=== PATIENT | male | born 1955 | race Caucasian/White ===

== ENCOUNTER 2022-01-05 15:33 | Outpatient (CLI) | payer MEDICARE, BC, SELFPAY ==
[2022-01-05 11:29] LABS: Chloride* 95 mmol/L (96-114)
[2022-01-05 11:30] LABS: Albumin* 4.1 g/dL (3.3-5.0); Potassium* 4.2 mmol/L (3.6-5.1)
[2022-01-05 11:32] LABS: Carbon Dioxide* 30 mmol/L (20-32); Cholesterol* 158 mg/dL (90-199); Creatinine* 0.9 mg/dL (0.5-1.5); Estimated Glomerular Filt Rate 93 ml/min
[2022-01-05 11:33] LABS: Alanine Aminotransferase* 33 U/L (4-50); Alkaline Phosphatase* 66 U/L (40-150); Aspartate Amino Transferase* 35 U/L (12-35); Bilirubin Total* 0.9 mg/dL (0.1-1.5); Blood Urea Nitrogen* 21 mg/dL (7-30); Calcium* 9.3 mg/dL (8.4-10.6); Glucose* 180 mg/dL (60-115); Total Protein* 7.1 g/dL (6.0-8.3); Triglycerides* 121 mg/dL (40-149)
[2022-01-05 11:34] LABS: HDL Cholesterol* 48 mg/dL (>=40); LDL Cholesterol Calculated 86 mg/dL (<100)
[2022-01-05 11:58] LABS: Microalbumin Creatinine Ratio 0 mg/g (0-30); Microalbumin Urine < 1 mg/dL
[2022-01-05 12:08] LABS: Sodium* 135 mmol/L (135-149)
== END 2022-01-05 15:34 | disposition home or self-care (01) ==
PROVIDERS: PCP Internal Medicine; Visit Provider Internal Medicine
DX: E11.9 Type 2 diabetes mellitus without complications (principal); E66.9 Obesity, unspecified; I10 Essential (primary) hypertension; Z13.6 Encounter for screening for cardiovascular disorders; Z12.5 Encounter for screening for malignant neoplasm of prostate
CPT/HCPCS: 80053; 80061; 82043; 82570; 84153

== ENCOUNTER 2022-03-05 21:38 | Emergency (ER) | payer MEDICARE, BC, SELFPAY ==
[2022-03-05] VITALS (12 sets, daily range): BP systolic 135–166; BP diastolic 68–85; PULSE 74–81; TEMP 36.7; O2SAT 90–98; BMI 45.6
--- NOTE | 2022-03-05 22:07 | CRLHL7_ITS ---
For Patients: As a result of the Century Cures Act, medical imaging exams and procedure reports are released immediately into your electronic medical record. You may view this report before your referring provider. If you have questions, please contact your health care provider. INDICATION: Right lower quadrant pain. COMPARISON: None available TECHNIQUE: CT examination of the abdomen and pelvis was performed without contrast enhancement using 3 mm thick axial sections from the lung bases through the pubic symphysis. Oral contrast was not administered. Please note that all CT scans at this facility use dose modulation, iterative reconstruction, and/or weight-based dosing when appropriate to reduce radiation dose to as low as reasonably achievable. FINDINGS: In the abdomen, the unenhanced liver, spleen, pancreas, and adrenals are normal in appearance. There is mild right hydronephrosis produced by a 5 millimeter proximal ureteral calculus located at the superior L4 level. There is moderate perinephric soft tissue stranding representing pyelo interstitial backflow. There is no sign of any additional renal or ureteral calculi on either side. There is no sign of left hydronephrosis or hydroureter. Several parapelvic cysts are seen in both kidneys. The gallbladder is normal in appearance. The abdominal aorta is normal in caliber with no sign of dilatation. There is no sign of retroperitoneal mass or adenopathy. The stomach, loops of small bowel, and colon in the abdomen are normal in appearance. There is a small fat containing periumbilical hernia. In the pelvis, the appendix is normal in appearance with no sign of inflammatory process. The loops of small bowel, colon, and rectum in the pelvis are normal in appearance. The prostate is mildly enlarged and is otherwise normal in appearance. The urinary bladder is normal in appearance. There is no sign of pelvic or inguinal mass or adenopathy. There are moderate left and small right fat containing inguinal hernias. There is no sign of free air or free fluid in the abdomen or pelvis. The lung bases are clear. There is mild scoliosis of the lumbar spine convex towards the right. There is minimal anterior subluxation of L5 on S1 related to moderate right greater than left facet arthropathy. The L5-S1 disc space is normal in height. There is severe L3-4 disc degenerative disease. IMPRESSION: CT of the abdomen shows mild right hydronephrosis previous by a 5 millimeter proximal ureteral calculus located at the superior L4 level. No sign of any additional renal or ureteral calculi on either side. Parapelvic cysts seen in both kidneys. CT of the pelvis shows a small fat containing periumbilical hernia and moderate left and mild right fat containing inguinal hernias. Mild enlargement of the prostate. Please note that all CT scans at this facility use dose modulation, iterative reconstruction, and/or weight-based dosing when appropriate to reduce radiation dose to as low as reasonably achievable. Dictated by Jefferson Light MD @ 03/05/2022 11:43:28 PM (Electronically Signed)
--- NOTE | 2022-03-05 22:09 | ED_ITS ---
HPI - General Adult General Time Seen by Provider: 22:10 <Shree Ruelas MD - Last Filed: 03/07/22 08:50> Date Seen: 03/05/22 <Shree Ruelas MD - Last Filed: 03/07/22 08:50> Chief complaint: Abdominal Pain <Shree Ruelas MD - Last Filed: 03/07/22 08:50> Stated complaint: LOWER RIGHT ABDOMINAL PAIN <Shree Ruelas MD - Last Filed: 03/07/22 08:50> Time Seen by Provider: 03/05/22 21:45 <Shree Ruelas MD - Last Filed: 03/07/22 08:50> Source: patient <Shree Ruelas MD - Last Filed: 03/07/22 08:50> Mode of arrival: ambulatory <Shree Ruelas MD - Last Filed: 03/07/22 08:50> Limitations: no limitations <Shree Ruelas MD - Last Filed: 03/07/22 08:50> History of Present Illness HPI narrative: Patient is a 58 year white male with elevated BMI who has had several hour history of right lower quadrant pain it is worse with hitting bumps on the road on the way to the hospital. He still has appendix. 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 His medications are reviewed. No recent chest pain, shortness of breath, COVID symptoms. <Shree Ruelas MD - Last Filed: 03/07/22 08:50> Related Data Home medications: Home Medications Medication Instructions Recorded Confirmed amlodipine 10 mg tablet 10 mg PO DAILY 01/07/22 01/12/22 aspirin 81 mg tablet,delayed 81 mg PO QDAY 01/07/22 01/12/22 release atenolol 100 mg tablet 100 mg PO DAILY 01/07/22 01/12/22 atorvastatin 10 mg tablet 10 mg PO .Bedtime 01/07/22 01/12/22 lisinopril 20 1 tab PO DAILY 01/07/22 01/12/22 mg-hydrochlorothiazide 25 mg tablet Previous Rx's Medication Instructions Recorded pantoprazole 20 mg tablet,delayed 20 mg PO QDAY GERD #60 tabs 07/26/22 release (Protonix) metformin 500 mg tablet 500 mg PO BIDWMEAL Diabetes #90 01/15/22 tabs hydrocodone 7.5 mg-acetaminophen 1 tab PO Q6-8H PRN pain #20 tabs 03/06/22 325 mg tablet ketorolac 10 mg tablet 10 mg PO TID PRN pain 5 days #15 03/06/22 tabs tamsulosin 0.4 mg capsule (Flomax) 0.4 mg PO DAILY #30 caps 03/06/22 <Shree Ruelas MD - Last Filed: 03/07/22 08:50> Allergies/adverse reactions: Allergies Allergy/AdvReac Type Severity Reaction Status Date / Time No Known Allergies Allergy Verified 01/12/22 08:25 <Shree Ruelas MD - Last Filed: 03/07/22 08:50> Review of Systems Status of ROS: Reports: 10 or more systems reviewed and unremarkable except as noted in History and below <Shree Ruelas MD - Last Filed: 03/07/22 08:50> [facility] Medical History: Medical History Encounter for screening for severe acute respiratory syndrome coronavirus 2 (SARS-CoV-2) infection GERD (gastroesophageal reflux disease) <Shree Ruelas MD - Last Filed: 03/07/22 08:50> Surgical History: Surgical History Status post right knee replacement (07/15/21) <Shree Ruelas MD - Last Filed: 03/07/22 08:50> Social History: Social History Smoking Status: Current every day smoker Do you use any of these nicotine containing products: None Second hand tobacco smoke exposure: No How often do you have a drink containing alcohol: never How often do you have six or more drinks on one occasion: Never AUDIT-C Alcohol total score: 0 Non-prescribed substance use: denies use <Shree Ruelas MD - Last Filed: 03/07/22 08:50> Exam Narrative: Exam Narrative: Objective: Patient is alert or x3 HEENT is unremarkable Neck is supple Pulses regular Lungs are clear Heart rhythm regular Abdomen obese benign but some mild right lower quadrant tenderness to palpation mild voluntary guarding is unremarkable for hernia or testicular swelling Extremities are no edema Neurologic nonfocal Periphery is well perfused Skin warm and dry <Shree Ruelas MD - Last Filed: 03/07/22 08:50> Const: Vital Signs, click to edit/add: Vital Signs - 24 hr 03/05/22 21:44 03/05/22 21:44 03/05/22 21:45 Temperature 98.1 F Pulse Rate 78 80 Pulse Rate [Left P ulse Oximeter] 76 Blood Pressure 166/85 H Blood Pressure [Ri ght Upper Arm] 166/85 H Pulse Oximetry 96 92 97 Oxygen Delivery Me thod Room Air Oxygen Flow Rate 03/05/22 21:46 03/05/22 22:02 03/05/22 22:48 Temperature Pulse Rate 79 Pulse Rate [Left P ulse Oximeter] Blood Pressure 139/71 Blood Pressure [Ri ght Upper Arm] Pulse Oximetry 95 95 Oxygen Delivery Me thod Oxygen Flow Rate 03/05/22 22:35 03/05/22 22:40 03/05/22 22:45 Temperature Pulse Rate 78 81 Pulse Rate [Left P ulse Oximeter] Blood Pressure 152/81 H Blood Pressure [Ri ght Upper Arm] Pulse Oximetry 94 95 Oxygen Delivery Me thod Oxygen Flow Rate 03/05/22 23:33 03/05/22 23:55 03/05/22 23:35 Temperature Pulse Rate 75 74 Pulse Rate [Left P ulse Oximeter] Blood Pressure 135/68 Blood Pressure [Ri ght Upper Arm] Pulse Oximetry 98 95 90 Oxygen Delivery Me thod Nasal Cannula Oxygen Flow Rate 2 03/05/22 23:45 03/06/22 00:00 03/06/22 00:02 Temperature Pulse Rate 75 75 78 Pulse Rate [Left P ulse Oximeter] Blood Pressure 128/63 Blood Pressure [Ri ght Upper Arm] Pulse Oximetry 93 95 92 Oxygen Delivery Me thod Nasal Cannula Nasal Cannula Oxygen Flow Rate 2 2 03/06/22 00:03 03/06/22 00:15 Temperature Pulse Rate 78 75 Pulse Rate [Left P ulse Oximeter] Blood Pressure Blood Pressure [Ri ght Upper Arm] Pulse Oximetry 93 95 Oxygen Delivery Me thod Oxygen Flow Rate <Shree Ruelas MD - Last Filed: 03/07/22 08:50> Vital Signs, click to edit/add: Vital Signs - 24 hr 03/05/22 21:44 03/05/22 21:44 03/05/22 21:45 Temperature 98.1 F Pulse Rate 78 80 Pulse Rate [Left P ulse Oximeter] 76 Blood Pressure 166/85 H Blood Pressure [Ri ght Upper Arm] 166/85 H Pulse Oximetry 96 92 97 Oxygen Delivery Me thod Room Air Oxygen Flow Rate 03/05/22 21:46 03/05/22 22:02 03/05/22 22:48 Temperature Pulse Rate 79 Pulse Rate [Left P ulse Oximeter] Blood Pressure 139/71 Blood Pressure [Ri ght Upper Arm] Pulse Oximetry 95 95 Oxygen Delivery Me thod Oxygen Flow Rate 03/05/22 22:35 03/05/22 22:40 03/05/22 22:45 Temperature Pulse Rate 78 81 Pulse Rate [Left P ulse Oximeter] Blood Pressure 152/81 H Blood Pressure [Ri ght Upper Arm] Pulse Oximetry 94 95 Oxygen Delivery Me thod Oxygen Flow Rate 03/05/22 23:33 03/05/22 23:55 03/05/22 23:35 Temperature Pulse Rate 75 74 Pulse Rate [Left P ulse Oximeter] Blood Pressure 135/68 Blood Pressure [Ri ght Upper Arm] Pulse Oximetry 98 95 90 Oxygen Delivery Me thod Nasal Cannula Oxygen Flow Rate 2 03/05/22 23:45 03/06/22 00:00 03/06/22 00:02 Temperature Pulse Rate 75 75 78 Pulse Rate [Left P ulse Oximeter] Blood Pressure 128/63 Blood Pressure [Ri ght Upper Arm] Pulse Oximetry 93 95 92 Oxygen Delivery Me thod Nasal Cannula Nasal Cannula Oxygen Flow Rate 2 2 03/06/22 00:03 03/06/22 00:15 Temperature Pulse Rate 78 75 Pulse Rate [Left P ulse Oximeter] Blood Pressure Blood Pressure [Ri ght Upper Arm] Pulse Oximetry 93 95 Oxygen Delivery Me thod Oxygen Flow Rate <Rosy Weir MD - Last Filed: 03/06/22 01:58> Course Vital Signs Vital signs: Initial Vital Signs Temperature 98.1 F 03/05/22 21:44 Temperature Source Temporal Artery Scan 03/05/22 21:44 Pulse Rate 78 03/05/22 21:44 Blood Pressure 166/85 H 03/05/22 21:44 Blood Pressure Mean 112 03/05/22 21:44 Pulse Oximetry 96 03/05/22 21:44 Oxygen Delivery Method 03/05/22 21:44 Vital Signs Temperature 98.1 F 03/05/22 21:44 Pulse Rate 78 03/05/22 21:44 Blood Pressure 166/85 H 03/05/22 21:44 Pulse Oximetry 96 03/05/22 21:44 Oxygen Delivery Method 03/05/22 21:44 Temperature 98.1 F 03/05/22 21:44 Pulse Rate 73 03/06/22 02:04 Blood Pressure 132/70 03/06/22 02:04 Pulse Oximetry 93 03/06/22 02:04 Oxygen Delivery Method 03/06/22 00:02 Oxygen Flow Rate 2 03/06/22 00:02 <Shree Ruelas MD - Last Filed: 03/07/22 08:50> Initial Vital Signs Temperature 98.1 F 03/05/22 21:44 Temperature Source Temporal Artery Scan 03/05/22 21:44 Pulse Rate 78 03/05/22 21:44 Blood Pressure 166/85 H 03/05/22 21:44 Blood Pressure Mean 112 03/05/22 21:44 Pulse Oximetry 96 03/05/22 21:44 Oxygen Delivery Method 03/05/22 21:44 Vital Signs Temperature 98.1 F 03/05/22 21:44 Pulse Rate 78 03/05/22 21:44 Blood Pressure 166/85 H 03/05/22 21:44 Pulse Oximetry 96 03/05/22 21:44 Oxygen Delivery Method 03/05/22 21:44 Temperature 98.1 F 03/05/22 21:44 Pulse Rate 73 03/06/22 02:04 Blood Pressure 132/70 03/06/22 02:04 Pulse Oximetry 93 03/06/22 02:04 Oxygen Delivery Method 03/06/22 00:02 Oxygen Flow Rate 2 03/06/22 00:02 <Rosy Weir MD - Last Filed: 03/06/22 01:58> Medical Decision Making MDM Narrative Medical decision making narrative: Patient is a 58 year white male with [id number] diabetes with significant elevated BMI with right-sided lower abdominal pain. Rule out intestinal infection, colitis, appendicitis. Given the patient's diabetic status will try and do the CT without contrast. Check labs, IV fluid, IV morphine. Surgical consult as needed Addendum: The patient's CT scan shows a 5 mm proximal ureteral calculus on the right with mild right hydronephrosis. The patient got a dose of morphine as well as fluid, he still had discomfort and was given Dilaudid 1 mg IV. Continue to give IV fluid as well as pain medicine as needed, if his pain resolves or improves he could possibly be discharged home on oral narcotic medicine, if he continues to have pain and discomfort may need continued IV treatment as well as consultation with Urology in a.m.. Because of non availability of bed space at any tertiary care hospital I would prefer to transfer this patient for Urology assessment given the size of the stone, but given that his un impossible presently we will watch in the ER as planned above. <Shree Ruelas MD - Last Filed: 03/07/22 08:50> Patient is a 58 year white male with [id number] diabetes with significant elevated BMI with right-sided lower abdominal pain. Rule out intestinal infection, colitis, appendicitis. Given the patient's diabetic status will try and do the CT without contrast. Check labs, IV fluid, IV morphine. Surgical consult as needed Addendum: The patient's CT scan shows a 5 mm proximal ureteral calculus on the right with mild right hydronephrosis. The patient got a dose of morphine as well as fluid, he still had discomfort and was given Dilaudid 1 mg IV. Continue to give IV fluid as well as pain medicine as needed, if his pain resolves or improves he could possibly be discharged home on oral narcotic medicine, if he continues to have pain and discomfort may need continued IV treatment as well as consultation with Urology in a.m.. Because of non availability of bed space at any tertiary care hospital I would prefer to transfer this patient for Urology assessment given the size of the stone, but given that his un impossible presently we will watch in the ER as planned above. Update 1:15 a.m., Dr. Weir. Patient had some mild initial transient hypoxia with his IV pain medication. He reported marked improvement in pain control shortly after receiving those medications. He is allowed to rest in the emergency department and we continue to observe. His pain did start to creep back. He is given oral Toradol and hydrocodone with improvement again in his pain. We discussed the plan of care, he is comfortable following up during the daylight hours to check on the status of the Urology referral and he does understand the plan of care. We reviewed the alarm symptoms for infection, signs of worsening and typical time course for kidney stones to past which can be several weeks. He verbalizes understanding and agreement. We discussed use of Tylenol and Toradol as needed for first-line therapy, beginning Flomax to help the stone pass possibly. A limited supply of hydrocodone will be given as well for severe pain and we discussed the indications for this. 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 Limited supply of oxycodone given through [facility] for the night until cub opens in the morning <Rosy Weir MD - Last Filed: 03/06/22 01:58> Lab Data Labs: Lab Results 03/05/22 03/05/22 03/05/22 Range/Units 21:50 22:12 22:20 WBC 12.19 H (4.50-11.00) K/uL RBC 4.40 (4.30-5.90) m/uL Hgb 13.0 L (13.5-17.5) gm/dL Hct 38.1 (37.0-53.0) % MCV 87 (80-100) fL MCH 30 (26-34) pg MCHC 34 (32-36) gm/dL RDW Coeff of [place] 12.1 (11.5-15.5) % Plt Count 241 (140-440) K/uL Neut % (Auto) 79.0 H (42.0-72.0) % Lymph % (Auto) 11.2 L (20-44) % [place] % (Auto) 8.7 (0.0-11.0) % Eos % (Auto) 0.2 (0.0-7.0) % Baso % (Auto) 0.2 (0.0-3.0) % Neut # (Auto) 9.60 H (1.7-7.0) K/uL Lymph # (Auto) 1.40 (0.90-2.90) K/uL [place] # (Auto) 1.10 H (0.00-0.90) K/UL Eos # (Auto) 0.00 (0.00-0.50) K/uL Baso # (Auto) 0.00 (0.00-0.30) K/uL Abs Immat Gran (auto) 0.08 (0.00-0.30) K/uL Sodium (135-149) mmol/L Potassium (3.6-5.1) mmol/L Chloride (96-114) mmol/L Carbon Dioxide (20-32) mmol/L BUN (7-30) mg/dL Creatinine (0.5-1.5) mg/dL Estimated Creat Clear Estimated GFR ml/min Glucose (60-115) mg/dL Calcium (8.4-10.6) mg/dL Total Bilirubin (0.1-1.5) mg/dL Direct Bilirubin (0.0-0.5) mg/dL AST (12-35) U/L ALT (4-50) U/L Alkaline Phosphatase (40-150) U/L C-Reactive Protein (0.5-1.0) mg/dL Total Protein (6.0-8.3) g/dL Albumin (3.3-5.0) g/dL Amylase (18-89) U/L Urine Color Yellow (Yellow) Urine Appearance Clear (Clear) Urine pH 6.0 (5.0-8.5) Ur Specific [place] 1.025 (1.000-1.030) Urine Protein Negative (Negative) Urine Glucose (UA) Trace A (Negative) Urine Ketones 1+ A (Negative) Urine Blood 2+ A (Negative) Urine Nitrite Negative (Negative) Urine Bilirubin Negative (Negative) Urine Urobilinogen 1.0 (0.2-1.0) Ur Leukocyte Esterase Negative (Negative) Urine RBC 0-2 (0-2) Urine WBC 0-2 (0-5) Ur Squamous Epith Cells None (None-Few) Urine Bacteria None (None) SARS-CoV-2 (PCR) Negative SARS-CoV-2 (Negative) 03/05/22 Range/Units 22:20 WBC (4.50-11.00) K/uL RBC (4.30-5.90) m/uL Hgb (13.5-17.5) gm/dL Hct (37.0-53.0) % MCV (80-100) fL MCH (26-34) pg MCHC (32-36) gm/dL RDW Coeff of [place] (11.5-15.5) % Plt Count (140-440) K/uL Neut % (Auto) (42.0-72.0) % Lymph % (Auto) (20-44) % [place] % (Auto) (0.0-11.0) % Eos % (Auto) (0.0-7.0) % Baso % (Auto) (0.0-3.0) % Neut # (Auto) (1.7-7.0) K/uL Lymph # (Auto) (0.90-2.90) K/uL [place] # (Auto) (0.00-0.90) K/UL Eos # (Auto) (0.00-0.50) K/uL Baso # (Auto) (0.00-0.30) K/uL Abs Immat Gran (auto) (0.00-0.30) K/uL Sodium 133 L (135-149) mmol/L Potassium 4.0 (3.6-5.1) mmol/L Chloride 98 (96-114) mmol/L Carbon Dioxide 25 (20-32) mmol/L BUN 26 (7-30) mg/dL Creatinine 1.5 (0.5-1.5) mg/dL Estimated Creat Clear 45.60 Estimated GFR 50 ml/min Glucose 233 H (60-115) mg/dL Calcium 9.2 (8.4-10.6) mg/dL Total Bilirubin 1.0 (0.1-1.5) mg/dL Direct Bilirubin 0.1 (0.0-0.5) mg/dL AST 28 (12-35) U/L ALT 29 (4-50) U/L Alkaline Phosphatase 66 (40-150) U/L C-Reactive Protein < 0.5 L (0.5-1.0) mg/dL Total Protein 7.0 (6.0-8.3) g/dL Albumin 4.2 (3.3-5.0) g/dL Amylase 48 (18-89) U/L Urine Color (Yellow) Urine Appearance (Clear) Urine pH (5.0-8.5) Ur Specific [place] (1.000-1.030) Urine Protein (Negative) Urine Glucose (UA) (Negative) Urine Ketones (Negative) Urine Blood (Negative) Urine Nitrite (Negative) Urine Bilirubin (Negative) Urine Urobilinogen (0.2-1.0) Ur Leukocyte Esterase (Negative) Urine RBC (0-2) Urine WBC (0-5) Ur Squamous Epith Cells (None-Few) Urine Bacteria (None) SARS-CoV-2 (PCR) (Negative) <Shree Ruelas MD - Last Filed: 03/07/22 08:50> Lab Results 03/05/22 03/05/22 03/05/22 Range/Units 21:50 22:12 22:20 WBC 12.19 H (4.50-11.00) K/uL RBC 4.40 (4.30-5.90) m/uL Hgb 13.0 L (13.5-17.5) gm/dL Hct 38.1 (37.0-53.0) % MCV 87 (80-100) fL MCH 30 (26-34) pg MCHC 34 (32-36) gm/dL RDW Coeff of [place] 12.1 (11.5-15.5) % Plt Count 241 (140-440) K/uL Neut % (Auto) 79.0 H (42.0-72.0) % Lymph % (Auto) 11.2 L (20-44) % [place] % (Auto) 8.7 (0.0-11.0) % Eos % (Auto) 0.2 (0.0-7.0) % Baso % (Auto) 0.2 (0.0-3.0) % Neut # (Auto) 9.60 H (1.7-7.0) K/uL Lymph # (Auto) 1.40 (0.90-2.90) K/uL [place] # (Auto) 1.10 H (0.00-0.90) K/UL Eos # (Auto) 0.00 (0.00-0.50) K/uL Baso # (Auto) 0.00 (0.00-0.30) K/uL Abs Immat Gran (auto) 0.08 (0.00-0.30) K/uL Sodium (135-149) mmol/L Potassium (3.6-5.1) mmol/L Chloride (96-114) mmol/L Carbon Dioxide (20-32) mmol/L BUN (7-30) mg/dL Creatinine (0.5-1.5) mg/dL Estimated Creat Clear Estimated GFR ml/min Glucose (60-115) mg/dL Calcium (8.4-10.6) mg/dL Total Bilirubin (0.1-1.5) mg/dL Direct Bilirubin (0.0-0.5) mg/dL AST (12-35) U/L ALT (4-50) U/L Alkaline Phosphatase (40-150) U/L C-Reactive Protein (0.5-1.0) mg/dL Total Protein (6.0-8.3) g/dL Albumin (3.3-5.0) g/dL Amylase (18-89) U/L Urine Color Yellow (Yellow) Urine Appearance Clear (Clear) Urine pH 6.0 (5.0-8.5) Ur Specific [place] 1.025 (1.000-1.030) Urine Protein Negative (Negative) Urine Glucose (UA) Trace A (Negative) Urine Ketones 1+ A (Negative) Urine Blood 2+ A (Negative) Urine Nitrite Negative (Negative) Urine Bilirubin Negative (Negative) Urine Urobilinogen 1.0 (0.2-1.0) Ur Leukocyte Esterase Negative (Negative) Urine RBC 0-2 (0-2) Urine WBC 0-2 (0-5) Ur Squamous Epith Cells None (None-Few) Urine Bacteria None (None) SARS-CoV-2 (PCR) Negative SARS-CoV-2 (Negative) 03/05/22 Range/Units 22:20 WBC (4.50-11.00) K/uL RBC (4.30-5.90) m/uL Hgb (13.5-17.5) gm/dL Hct (37.0-53.0) % MCV (80-100) fL MCH (26-34) pg MCHC (32-36) gm/dL RDW Coeff of [place] (11.5-15.5) % Plt Count (140-440) K/uL Neut % (Auto) (42.0-72.0) % Lymph % (Auto) (20-44) % [place] % (Auto) (0.0-11.0) % Eos % (Auto) (0.0-7.0) % Baso % (Auto) (0.0-3.0) % Neut # (Auto) (1.7-7.0) K/uL Lymph # (Auto) (0.90-2.90) K/uL [place] # (Auto) (0.00-0.90) K/UL Eos # (Auto) (0.00-0.50) K/uL Baso # (Auto) (0.00-0.30) K/uL Abs Immat Gran (auto) (0.00-0.30) K/uL Sodium 133 L (135-149) mmol/L Potassium 4.0 (3.6-5.1) mmol/L Chloride 98 (96-114) mmol/L Carbon Dioxide 25 (20-32) mmol/L BUN 26 (7-30) mg/dL Creatinine 1.5 (0.5-1.5) mg/dL Estimated Creat Clear 45.60 Estimated GFR 50 ml/min Glucose 233 H (60-115) mg/dL Calcium 9.2 (8.4-10.6) mg/dL Total Bilirubin 1.0 (0.1-1.5) mg/dL Direct Bilirubin 0.1 (0.0-0.5) mg/dL AST 28 (12-35) U/L ALT 29 (4-50) U/L Alkaline Phosphatase 66 (40-150) U/L C-Reactive Protein < 0.5 L (0.5-1.0) mg/dL Total Protein 7.0 (6.0-8.3) g/dL Albumin 4.2 (3.3-5.0) g/dL Amylase 48 (18-89) U/L Urine Color (Yellow) Urine Appearance (Clear) Urine pH (5.0-8.5) Ur Specific [place] (1.000-1.030) Urine Protein (Negative) Urine Glucose (UA) (Negative) Urine Ketones (Negative) Urine Blood (Negative) Urine Nitrite (Negative) Urine Bilirubin (Negative) Urine Urobilinogen (0.2-1.0) Ur Leukocyte Esterase (Negative) Urine RBC (0-2) Urine WBC (0-5) Ur Squamous Epith Cells (None-Few) Urine Bacteria (None) SARS-CoV-2 (PCR) (Negative) <Rosy Weir MD - Last Filed: 03/06/22 01:58> Discharge Plan Discharge Clinical Impression: Right sided abdominal pain, Right kidney stone <Shree Ruelas MD - Last Filed: 03/07/22 08:50> Patient Disposition: Home w/ Parent or Adult <Shree Ruelas MD - Last Filed: 03/07/22 08:50> Condition: Improved <Shree Ruelas MD - Last Filed: 03/07/22 08:50> Additional Instructions: Strain your urine to see if you passed a kidney stone. I have given you several prescriptions. The 1st medication is called tamsulosin, also known as Flomax. He will take this daily to help reduce spasm of the ureter and also to hopefully help dilate things open slightly and allowed the stone to pass more easily. I have given you 2 different medications for pain, the 1st is a medication called ketorolac, also known as Toradol. This may be taken up to 3 times daily and is a nonnarcotic. It is safe to operate machinery while on this medication. You may also take Tylenol in addition to this medication for pain. Drink lots of water. If the pain becomes severe again, I have given a limited prescription for a medicine called hydrocodone. This is a narcotic and you should not operate machinery while on that medication. Try to use that sparingly and discontinue as soon as possible. I have placed a referral to the urologist. Our staff will also call and try to coordinate an appointment once their office opens tomorrow. If you have not heard back from us or them by 1:00 p.m., please call the Emergency Department to double check on the status of this. It may take them a week to get you an appointment, this is not uncommon. If you began having shaking chills, fevers and/or severe weakness, this could be a sign of infection and you would need to seek medical care. You may notice some blood in your urine which would not be surprising. Your kidney stone is 5 mm and located on the right ureter, fairly close to the kidney. We describe them related to your spine and yours is at the L4 level. This means that it does have quite a bit further to go. Kidney stones that are 4 mm or less will often past without help. Once your size will typically past but may need intervention. As we discussed the urologist may consider putting in a stent if you have not passed the stone by your follow-up appointment. They will discuss proper options with you. <Shree Ruelas MD - Last Filed: 03/07/22 08:50> Activity Level: Light activity <Shree Ruelas MD - Last Filed: 03/07/22 08:50> Light activity <Rosy Weir MD - Last Filed: 03/06/22 01:58> Discharge Diet: Regular <Shree Ruelas MD - Last Filed: 03/07/22 08:50> Regular <Rosy Weir MD - Last Filed: 03/06/22 01:58> Prescriptions: New hydrocodone-acetaminophen 7.5-325 mg tablet 1 tab PO Q6-8H PRN (Reason: pain) Qty: 20 0RF ketorolac 10 mg tablet 10 mg PO TID PRN (Reason: pain) 5 Days Qty: 15 0RF Rx Instructions: non-narcotic. Safer kidney stone pain medication tamsulosin [Flomax] 0.4 mg capsule 0.4 mg PO DAILY Qty: 30 1RF Rx Instructions: take daily to help stone pass, may stop when stone passes No Action atorvastatin 10 mg tablet 10 mg PO .Bedtime amlodipine 10 mg tablet 10 mg PO DAILY lisinopril-hydrochlorothiazide 20-25 mg tablet 1 tab PO DAILY atenolol 100 mg tablet 100 mg PO DAILY aspirin 81 mg tablet,delayed release (DR/EC) 81 mg PO QDAY pantoprazole [Protonix] 20 mg tablet,delayed release (DR/EC) 20 mg PO QDAY Qty: 60 1RF metformin 500 mg tablet 500 mg PO BIDWMEAL Qty: 90 3RF Rx Instructions: 1000mg in the am and 500mg in the pm <Shree Ruelas MD - Last Filed: 03/07/22 08:50> Follow Up/Referrals: Casey Cano MD [Referring] - (first available urology- obstructing right proximal (L4 area) 5mm stone, seen ED 03/05) Anders Mirza MD [Primary Care Provider] - <Shree Ruelas MD - Last Filed: 03/07/22 08:50> Stand Alone Forms: MyHealth Info Instructions <Shree Ruelas MD - Last Filed: 03/07/22 08:50>
[2022-03-05 22:18] LABS: Appearance Urine Clear (Clear); Bilirubin Urine Negative (Negative); Blood Urine 2+ (Negative); Color Urine Yellow (Yellow); Glucose Urine Trace (Negative); Ketones Urine 1+ (Negative); Leukocyte Esterase Urine Negative (Negative); Nitrite Urine Negative (Negative); Protein Urine Negative (Negative); Specific Gravity Urine 1.025 (1.000-1.030)
--- OUTSIDE RECORDS SUMMARY | 2022-03-05 22:24 | XMS_ITS | Clinical Summary ---
:1955 Author Organization [email or web address] [place] [address] Care Team Providers Name Role Phone Pcp, No Primary Care Provider Unavailable Allergies No known active allergies Medications Medication Sig Dispensed Refills Start Date End Date Status aspirin 81 mg Take 1 tablet by 1 tablet 0 10/22/2009 Active tabletIndications: Type mouth once daily II or unspecified type with a meal. diabetes mellitus without mention of complication, not stated as uncontrolled cholecalciferol (VITAMIN Take 1 capsule 0 10/15/2010 Active D) 1,000 unit capsule by mouth once daily. amLODIPine (NORVASC) 10 Take 1 tablet by 90 tablet 3 3 Active mg tablet mouth once daily. atenolol (TENORMIN) 100 Take 1 tablet by 90 tablet 3 3 Active mg tablet mouth once daily. lisinopril-hydrochloroth Take 1 tablet by 90 tablet 3 09/16/19 13 Active iazide, 20-25 mg, mouth once (PRINZIDE, ZESTORETIC) daily. 20-25 mg per tablet simvastatin (ZOCOR) 20 Take 1 tablet by 90 tablet 3 09/15/2012 Active mg tablet mouth at bedtime. ergocalciferol (VITAMIN Take 1 capsule 8 capsule 0 09/15/2012 Active D) 50,000 unit capsule by mouth once weekly. one po WEEKLY for 8 weeks blood sugar diagnostic Test once daily, 100 Each 0 09/15/2012 Active (ACCU-CHEK ADVANTAGE and as needed. TEST) strip lancets (ACCU-CHEK Test once daily, 100 Each 0 09/15/2012 Active SOFTCLIX LANCETS) and as needed. metFORMIN (GLUCOPHAGE TAKE 1 TABLET BY 30 tablet 0 07/10/2014 Active XR) 500 mg MOUTH ONCE DAILY Extended-Release WITH EVENING tabletIndications: Type MEAL. II or unspecified type diabetes mellitus without mention of complication, not stated as uncontrolled Active Problems Problem Noted Date Morbid obesity 10/04/2009 Vitamin D deficiency 10/04/2009 HTN (hypertension) Type II or unspecified type diabetes mellitus without mention of complication, not stated as uncontrolled Immunizations Name Administration Dates Next Due HepA-HepB (Twinrix) 09/15/2012 Pneumococcal Poly,23-Valent (Pneumovax) 10/15/2010 Td (Age >=7 Years) 05/31/2005 Tdap 10/15/2010 Family History Medical History Relation Name Comments Heart Disease Father Hyperlipidemia Father Hypertension Father Hypertension Mother Thyroid Disease Mother Cancer-colon Neg. 1 Cancer-prostate Neg. 2 Relation Name Status Comments Father Mother Alive Neg. 1 Neg. 2 Social History Tobacco Use Types Packs/Day Years Used Date Never Smoker Alcohol Use Standard Drinks/Week Comments Yes 0 (1 standard drink = 0.6 oz pure alcoho l) rarely Sex Assigned at Date Recorded Not on file Obstetrics History Last Filed Vital Signs Vital Sign Reading Time Taken Comments Blood Pressure 138/78 09/15/2012 9:17 AM CDT Pulse 69 09/15/2012 9:01 AM CDT Temperature - - Respiratory Rate 18 09/15/2012 8:57 AM CDT Oxygen Saturation 95% 09/15/2012 8:57 AM CDT Inhaled Oxygen Concentration - - Weight 139.3 kg (307 lb) 09/15/2012 8:57 AM CDT Height 176.5 cm (5' 9.5) 09/15/2012 8:57 AM CDT Body Mass Index 44.69 09/15/2012 8:57 AM CDT Plan of Treatment Health Maintenance Due Date Last Done Comments COVID-19 vaccine series (#1) 03/31/1956 Depression screening for age 12+ 1965 BMI (ht and wt on same day) for 09/29/1971 age 18+ Hepatitis C screening for age 0509/29/1971 18-79 Zoster (shingles) series for age 0509/29/2003 50+ (1 of 2) Pneumococcal series for age 65+ (2 10/16/2011 10/15/2010 - PCV) Colonoscopy through age 75 06/08/2017 06/08/2007 Lipids for age 45-75 09/14/2017 09/14/2012, 07/21/2011, 10/14/2010, Additional history exists Tetanus booster 10/15/2020 10/15/2010, 05/31/2005 Influenza for age 65+ 01/29/2022 Tdap Completed 10/15/2010 Results Not on filefrom Last 3 Months Insurance Payer Benefit Plan / Subscriber ID Effective Dates Phone Addre ss Type Group [facility] AD[facility]AGE [id number] 2009-Present [address] [place] [address] Care Teams Insurance Claim Auditor Relationship Specialty Start Date End Date Pcp, No PCP - General 07/10/14 .
[2022-03-05] MEDS: 0.9 % SODIUM CHLORIDE 500 ML 500 ML IV (22:34)
[2022-03-05] MEDS: MORPHINE 4 MG/ML INJ IVP (22:35)
[2022-03-05 22:40] LABS: Basophils Percent Auto 0.2 % (0.0-3.0); Eosinophils Percent Auto 0.2 % (0.0-7.0); Hematocrit 38.1 % (37.0-53.0); Immature Granulocytes Abs Auto 0.08 K/uL (0.00-0.30); Lymphocytes Percent Auto 11.2 % (20-44); Mean Corpuscular HGB Conc 34 gm/dL (32-36); Mean Corpuscular Hemoglobin 30 pg (26-34); Mean Corpuscular Volume 87 fL (80-100); Monocytes Percent Auto 8.7 % (0.0-11.0); Platelet Count* 241 K/uL (140-440); RDW Coefficient of Variation % 12.1 % (11.5-15.5); White Blood Count* 12.19 K/uL (4.50-11.00)
[2022-03-05 22:44] LABS: Slide Review Reflex No
[2022-03-05 22:44] LABS: RBC Urine 0-2 (0-2); WBC Urine 0-2 (0-5)
[2022-03-05] MEDS: ONDANSETRON 2 MG/ML inj 4 MG IVP (22:47)
[2022-03-05 22:56] LABS: SARS PCR* Negative SARS-CoV-2 (Negative)
[2022-03-05 22:57] LABS: Chloride* 98 mmol/L (96-114)
[2022-03-05 22:58] LABS: Albumin* 4.2 g/dL (3.3-5.0); Sodium* 133 mmol/L (135-149)
[2022-03-05 23:00] LABS: Amylase* 48 U/L (18-89)
[2022-03-05 23:01] LABS: Alkaline Phosphatase* 66 U/L (40-150); Aspartate Amino Transferase* 28 U/L (12-35); Bilirubin Direct* 0.1 mg/dL (0.0-0.5); Blood Urea Nitrogen* 26 mg/dL (7-30); Carbon Dioxide* 25 mmol/L (20-32); Creatinine* 1.5 mg/dL (0.5-1.5); Estimated Glomerular Filt Rate 50 ml/min; Glucose* 233 mg/dL (60-115)
[2022-03-05 23:02] LABS: Alanine Aminotransferase* 29 U/L (4-50); Calcium* 9.2 mg/dL (8.4-10.6)
[2022-03-05 23:12] LABS: C Reactive Protein* < 0.5 mg/dL (0.5-1.0)
[2022-03-05] MEDS: HYDROmorphone 0.5 mg/0.5 ml inj 1 MG IVP (23:37)
--- NOTE | 2022-03-05 23:55 | ED.NURSE ---
Pt O2 dropping to 87% on RA after Dilaudid given. Pt rousable and O2 recovered to mid-90's%. Pt drowsy, O2 continues to dip into the 80's% when pt falls asleep. Placed pt on 2L O2 NC. notified.
[2022-03-06] VITALS (15 sets, daily range): BP systolic 128–139; BP diastolic 63–82; PULSE 71–78; O2SAT 92–97
[2022-03-06] MEDS: KETOROLAC 10 MG TABLET PO (01:34)
[2022-03-06] MEDS: HYDROCODONE-ACETAMIN 5-325 MG 1 TAB PO (01:34)
== END 2022-03-06 02:16 | disposition home or self-care (01) ==
PROVIDERS: Family Medicine; Emergency Provider Family Medicine; PCP Internal Medicine
DX: N20.0 Calculus of kidney (principal)
CPT/HCPCS: 36415; 74176; 80048; 80076; 81001; 82150; 85025; 86140; 87086; 87635; 94761; 96374; 96375; 99284; 99285; A9270; J1170; J2270; J2405; J7120

== ENCOUNTER 2022-07-14 06:40 | Day surgery (SDC) | payer MEDICARE, BC, SELFPAY ==
[2022-07-14] VITALS (38 sets, daily range): BP systolic 66–140; BP diastolic 43–81; PULSE 52–103; RESP 16–20; TEMP 36.1–36.9; O2SAT 91–99; BMI 31.4
[2022-07-14] MEDS: CELECOXIB 200 MG CAPSULE PO (07:01)
[2022-07-14] MEDS: ACETAMINOPHEN 500 MG TABLET 1000 MG PO ×3 (07:01→18:23)
[2022-07-14] MEDS: OXYCODONE (CR) 10 MG TAB.ER.12H PO (07:01)
[2022-07-14] MEDS: fentaNYL 100 MCG/2 ML inj IVP (07:01)
[2022-07-14] MEDS: MIDAZOLAM HCL 1 MG/ML inj IVP (07:01)
[2022-07-14] MEDS: LACTATED RINGERS 1000 ML 1,000 ML 100 ML IV ×2 (07:05→10:39)
--- NOTE | 2022-07-14 08:15 | SUR.PREOP ---
TIME?OUT:?0815 PT/RN/MDA?VERIFICATION?OF?SURGICAL?SITE,?PROCEDURE,?AND?CONSENT OBTAINED?PRIOR?TO?INVASIVE?PROCEDURE. left knee
[2022-07-14] MEDS: CEFAZOLIN 1 GM inj 3 GM IVP (08:46)
[2022-07-14] MEDS: TRANEXAMIC ACID 100 MG/ML INJ 1000 MG IV (08:51)
--- NOTE | 2022-07-14 10:32 | CRLHL7_ITS ---
For Patients: As a result of the Cures Act, medical imaging exams and procedure reports are released immediately into your electronic medical record. You may view this report before your referring provider. If you have questions, please contact your health care provider. Indication: POST OP LEFT TKA Technique: Two views left knee Findings/Impression: Hardware from a left total knee arthroplasty is in satisfactory position. Bone alignment is normal. No sign of acute fracture. Postop changes are within normal limits. Dictated by Channing Douglas MD @ 07/14/2022 11:48:44 AM (Electronically Signed)
--- NOTE | 2022-07-14 10:34 | P.ORPRC_ITS ---
Procedure Note Date of procedure: 07/14/22 Procedure: PREOPERATIVE DIAGNOSIS: Left knee osteoarthritis POSTOPERATIVE DIAGNOSIS: Left knee osteoarthritis NAME OF OPERATION: Left total knee arthroplasty SURGEON: Vick Smallwood MD TAKER OFF HEMP FIBER: FAITH Nelson ANESTHESIA: Spinal ESTIMATED BLOOD LOSS: 0 mL COMPLICATIONS: None SPECIMENS: None DRAINS: None PREOPERATIVE ANTIBIOTICS: Ancef 3 grams IMPLANTS: 1. J&J Attune # 8 posterior stabilized femur 2. # 8 fixed-bearing tibia 3. # 8 posterior stabilized, 7 mm fixed-bearing polyethylene 4. 41 patella INDICATIONS: The patient is a 66-year-old with a longstanding history of severe, unrelenting left knee pain secondary to end-stage (grade IV) left knee osteoarthritis. Despite appropriate nonoperative management, including activity modification, anti-inflammatories, [id number] pain medication, bracing, physical therapy, and injections they continue to have pain and disability. Operative intervention was offered. The risks, benefits and expected outcomes were discussed in detail. These included but were not limited to: Infection, bleeding, injury to blood vessel or nerve, venous thromboembolism. All questions were answered to their satisfaction. Use of an district administrative assistant was necessary throughout the case for patient positioning and safety, soft tissue retraction, and closure. A modifier 22 should be added to this case. The patient's weight of 130 kg with a BMI of 44 made the case more difficult an added 50% of the time typically required to complete this case. PROCEDURE: Spinal anesthesia was administered. The patient was placed supine on the operating table. The district administrative assistant made sure the patient was positioned appropriately. The lower extremity was prepped and draped in the usual sterile fashion. The limb was exsanguinated with the Roberto Carlos bandage. The pneumatic tourniquet was inflated to 300 mmHg. A standard anterior incision was made with the knee in flexion. Subcutaneous dissection was sharply taken through fascial layer #1. Full-thickness medial and lateral flaps were elevated. The district administrative assistant retracted the soft tissues and protected them throughout the case. A standard medial parapatellar approach was made. The patella was everted. The infrapatellar fat pad was preserved. The menisci and cruciate ligaments were sharply d?brided. Marginal osteophytes were d?brided with the rongeur. The drill was used to penetrate the femoral canal. The canal was aspirated and irrigated with pulse lavage. The intramedullary femoral guide was placed for a 5-degree valgus cut, removing 12 mm off the distal femur. The saw was used to make the cut. Whitesides line and the trans epicondylar axis were marked. The femoral sizing guide was pinned onto the distal femur. Three degrees of external rotation nicely parallels the transepicondylar axis. Pins were placed for posterior referencing. The four-in-one cutting guide was pinned onto the distal femur. The anterior, posterior, and chamfer cuts were made. The district administrative assistant protected the collateral ligaments. The box cutting guide was pinned. The box cuts were made. The boxed trial was placed and was an excellent fit. Drill holes for the lugs were made. Attention was then turned to the proximal tibia. The extramedullary tibial guid e was placed for a neutral varus/valgus cut with 5 degrees of posterior slope, removing 2 mm based off the medial tibial surface. The district administrative assistant protected the collateral ligaments and the neurovascular bundle. The saw was used to make the cut. Trial components were placed. The knee was nicely balanced in both flexion and extension. The trial components were removed. The tray was placed in appropriate rotation, parallel to our tibial cutting pins. It was pinned by the district administrative assistant and the drill and the punch were used. The tray was removed. The punch was used again. We placed a bone plug in the femoral canal. Attention was then turned to the patella. [place] patellar thickness was 27.5 mm. The lobster claw resection guide was used with the 9.5 mm donald. The saw was used to make the cut. Drill holes were made by the district administrative assistant. The trial was placed and was an excellent fit. Cancellous surfaces were irrigated with pulse lavage and thoroughly dried by the district administrative assistant. We cemented the tibial component, then the femoral component. We impacted the 7 mm polyethylene onto the tibial tray. The knee was brought into full extension. We then cemented the patellar component. Excessive cement was removed. The cement was allowed to harden. The knee was taken through a range of motion and was found to be nicely balanced in both flexion and extension. The patella tracks centrally. The district administrative assistant did a three minute dilute Betadine solution soak. The district administrative assistant irrigated the wound with 3 liters of normal saline via pulse lavage. The district administrative assistant reapproximated the extensor mechanism with #1 Vicryl in an interrupted [id number]-[id number] fashion. The district administrative assistant then ran the extensor mechanism with a #1 PDO Stratafix. The district administrative assistant closed the subcutaneous tissues with a 3-0 Stratafix and the skin with a running 3-0 Stratafix in a subcuticular fashion. Glue was used to seal the skin. The district administrative assistant placed a dry dressing, HEMAL stocking, and Polar Care. Sponge and needle counts were correct x2. The patient tolerated the procedure well. There were no apparent complications. They were carefully transferred to the hospital bed and taken to the postanesthesia care unit in satisfactory condition. PLAN: The patient will be mobilized with physical therapy. Aspirin will be used for DVT prophylaxis. They will be discharged to home once medically appropriate.
--- NOTE | 2022-07-14 11:21 | W.ANESCHARGE ---
Anesthesia Charges Start Date/Time Anesthesia Start Date: 07/14/22 Anesthesia Start Time: 08:34 Stop Date/Time Anesthesia Stop Date: 07/14/22 Anesthesia Stop Time: 11:19
[2022-07-14] MEDS: PHENYLEPHRINE 100 MCG/ML SYRINGE IVP ×6 (11:22→12:21)
[2022-07-14] MEDS: LACTATED RINGERS 1000 ML 1,000 ML 35 ML IV (11:48)
--- NOTE | 2022-07-14 11:52 | W.ANESCHARGE ---
Anesthesia Charges Start Date/Time Anesthesia Start Date: 07/14/22 Anesthesia Start Time: 08:34 Stop Date/Time Anesthesia Stop Date: 07/14/22 Anesthesia Stop Time: 11:19
--- NOTE | 2022-07-14 11:53 | W.PM.NB ---
Nerve Block Nerve Block Time Seen by Provider: 08:17 Date Seen: 07/14/22 Type of block requested by surgeon for post-operative analgesia: adductor canal Side: left Time out performed: Yes Verification of patient name: Yes Verification of date of : Yes Site marking: site marked Name of person performing procedure: Tre Continuous monitoring Was continuous monitoring of O2 sat, B/P, hall monitor, recorded every 15 minutes?: Yes Procedure Checklist: sterile prep, needles and gloves Ultrasound guided. Images saved: Yes Medications given in 5ml increments after negative aspiration: Ropivicaine %: 0.5 mL: 20 Needle gauge: 20 Decadron (mg): 10 Precedex (mcg): 25 Patient tolerated procedure well: Yes Additional comments: Needle noted adjacent to nerve Block Charges Block Charge (with Pro Fee): Femoral Nerve Use of Ultrasound Machine for Block: Yes- US Guidance/pain block
--- NOTE | 2022-07-14 11:54 | P.NB_ITS ---
Nerve Block Nerve Block Time Seen by Provider: 08:17 Date Seen: 07/14/22 Type of block requested by surgeon for post-operative analgesia: geniculars Side: left Time out performed: Yes Verification of patient name: Yes Verification of date of : Yes Site marking: site marked Name of person performing procedure: Tre Continuous monitoring Was continuous monitoring of O2 sat, B/P, quality assurance monitor, recorded every 15 minutes?: Yes Procedure Checklist: sterile prep, needles and gloves Medications given in 5ml increments after negative aspiration: Ropivicaine %: 0.5 mL: 9 Needle gauge: 25 Patient tolerated procedure well: Yes Block Charges Block Charge (with Pro Fee): Genicular Nerve Block Use of Ultrasound Machine for Block: No
[2022-07-14] MEDS: ePHEDrine sulfate 5 MG/ML inj IVP (12:09)
[2022-07-14] MEDS: LACTATED RINGERS 1000 ML 1,000 ML 75 ML IV (12:58)
[2022-07-14] MEDS: HYDROmorphone 0.5 mg/0.5 ml inj IVP (13:09)
--- NOTE | 2022-07-14 13:13 | P.IMCN_ITS ---
Date of Consult Patient: [facility] Patient Consult date: 07/14/22 Requesting Physician: Orthopedics Primary Care Provider: Anders Mirza MD Consult Narrative Reason for consult: Postoperative management of hypertension and diabetes mellitus type 2 Narrative: Darius Gonzalez is a 66 year old man with known end-stage left gonarthrosis presents for an elective left total knee arthroplasty today. This is undertaken successfully without any apparent immediate complications or ill consequences. Did have postoperative hypotension with systolic blood pressures as low as the 80s mm Hg. Has now received 3 L of normal saline total. Resting supine blood pressure is now 100-110 mmHg. Denies chest heaviness, pressure, tightness, or pain. Denies dyspnea at rest, paroxysmal nocturnal dyspnea, or orthopnea. Denies syncope or near-syncope. Denies nausea or vomiting. Review of Systems Status of ROS: Reports: 10 or more systems reviewed and unremarkable except as noted in History and below Narrative: Preoperative blood sugars have not been well managed. Hemoglobin A1c on 07/08/2022 was 8.9. Does not monitor his blood sugars ordinarily. Denies polyuria, polydipsia, polyphagia. Denies confusion, diaphoresis, weakness or somnolence. No recent illnesses. No recent injury. No recent travel. Notes chronic left shoulder discomfort. No focal motor neurologic deficits. No nighttime sweats or weight loss or weight gain. [facility] Medical History Encounter for screening for severe acute respiratory syndrome coronavirus 2 (SARS-CoV-2) infection GERD (gastroesophageal reflux disease) Hypertension Pre-op exam Renal calculi (03/05/22) Type 2 diabetes mellitus Surgical History Status post right knee replacement (07/15/21) Family History Father CHF (congestive heart failure) High blood pressure Mother High blood pressure Social History Highest level of school completed/degree received: Associate degree: occupational, technical, vocational program Smoking Status: Never smoker Do you use any of these nicotine containing products: None Second hand tobacco smoke exposure: No How often do you have a drink containing alcohol: never How often do you have six or more drinks on one occasion: Never AUDIT-C Alcohol total score: 0 Non-prescribed substance use: denies use Caffeine: Yes (very little) service: No Meds Home Medications and Allergies Home Medications Medication Instructions Recorded Confirmed Type aspirin 81 mg tablet,delayed 81 mg PO DAILY 01/07/22 07/14/22 History release atenolol 100 mg tablet 100 mg PO DAILY 01/07/22 07/14/22 History atorvastatin 10 mg tablet 10 mg PO HS 01/07/22 07/14/22 History lisinopril 20 1 tab PO DAILY 01/07/22 07/14/22 History mg-hydrochlorothiazide 25 mg tablet acetaminophen 500 mg tablet 500 - 1,000 mg PO Q6H PRN 07/08/22 07/14/22 History metformin 500 mg tablet 500 - 1,000 mg PO BIDWMEAL Diabetes 07/14/22 07/14/22 History pantoprazole 20 mg tablet,delayed 20 mg PO DAILY GERD 07/14/22 07/14/22 History release (Protonix) Allergies Allergy/AdvReac Type Severity Reaction Status Date / Time No Known Allergies Allergy Verified 07/14/22 07:13 Exam Narrative: Exam Narrative: Laying in hospital bed with head of bed elevated about 20?. Appears comfortable and in no acute distress. Alert, oriented to self, place, time, situation. Friendly, articulate, cooperative. Vision and hearing are grossly normal. Moist buccal mucosa. No skin tenting. Lungs are clear to auscultation. Heart tones with regular rhythm, normal S1-S2, without murmur, gallop, or rub. Abdomen obese with active bowel sounds, soft, nontender. Can move toes on the affected left side. No focal motor neurologic deficits Const: Vital Signs, click to edit/add: Vital Signs - 24 hr 07/14/22 07:51 07/14/22 08:20 07/14/22 11:17 Temperature 98.4 F 98.1 F Pulse Rate 92 89 66 Respiratory Rate 18 18 16 Blood Pressure 140/77 H 122/60 66/43 L Pulse Oximetry 93 93 96 Oxygen Delivery Me thod Room Air Room Air Non Rebreather Mas k Oxygen Flow Rate 10 07/14/22 11:38 07/14/22 11:43 07/14/22 11:55 Temperature Pulse Rate 60 60 55 L Respiratory Rate 16 16 16 Blood Pressure 88/52 L 77/47 L 94/56 L Pulse Oximetry 95 97 98 Oxygen Delivery Me thod Non Rebreather Mas k Non Rebreather Mas k Non Rebreather Mas k Oxygen Flow Rate 10 10 5 07/14/22 12:05 07/14/22 12:10 07/14/22 12:25 Temperature Pulse Rate 64 58 L 68 Respiratory Rate 16 16 16 Blood Pressure 82/71 L 107/60 99/61 Pulse Oximetry 99 99 96 Oxygen Delivery Me thod Non Rebreather Mas k Non Rebreather Mas k Nasal Cannula Oxygen Flow Rate 5 5 2 07/14/22 12:30 07/14/22 11:19 07/14/22 11:22 Temperature 97.2 F L Pulse Rate 69 52 L 61 Respiratory Rate 16 16 16 Blood Pressure 106/57 L 84/52 L 75/43 L Pulse Oximetry 96 96 96 Oxygen Delivery Me thod Nasal Cannula Non Rebreather Mas k Non Rebreather Mas k Oxygen Flow Rate 2 10 10 07/14/22 11:25 07/14/22 11:30 07/14/22 11:35 Temperature Pulse Rate 55 L 60 57 L Respiratory Rate 16 16 16 Blood Pressure 87/50 L 81/48 L 90/55 L Pulse Oximetry 96 96 97 Oxygen Delivery Me thod Non Rebreather Mas k Non Rebreather Mas k Non Rebreather Mas k Oxygen Flow Rate 10 10 10 07/14/22 11:40 07/14/22 11:45 07/14/22 11:50 Temperature Pulse Rate 60 55 L 56 L Respiratory Rate 16 16 16 Blood Pressure 82/48 L 89/47 L 78/49 L Pulse Oximetry 95 97 98 Oxygen Delivery Me thod Non Rebreather Mas k Non Rebreather Mas k Non Rebreather Mas k Oxygen Flow Rate 10 10 5 07/14/22 11:59 07/14/22 12:15 07/14/22 12:18 Temperature Pulse Rate 60 67 67 Respiratory Rate 16 16 16 Blood Pressure 84/54 L 92/68 84/66 L Pulse Oximetry 97 99 98 Oxygen Delivery Me thod Non Rebreather Mas k Nasal Cannula Nasal Cannula Oxygen Flow Rate 5 2 2 07/14/22 12:20 07/14/22 12:28 07/14/22 12:34 Temperature Pulse Rate 68 69 69 Respiratory Rate 16 16 16 Blood Pressure 104/57 L 109/66 107/58 L Pulse Oximetry 96 96 95 Oxygen Delivery Me thod Nasal Cannula Nasal Cannula Nasal Cannula Oxygen Flow Rate 2 2 2 Assessment and Plan Assessment and plan (1) Osteoarthritis of left knee: Status: Chronic (2) Status post left knee replacement: Status: Acute (3) Type 2 diabetes mellitus: Status: Acute (4) Hypertension: Status: Acute (5) Obesity: Status: Acute (6) GERD (gastroesophageal reflux disease): Status: Acute (7) Postoperative hypotension: Status: Acute (8) Anemia: Status: Acute Plan 1. Reviewed with patient and . Answered their questions. 2. Hold his antihypertensive medications for now 3. Continue with his metformin for now. 4. Sliding scale aspart insulin for blood sugar management 5. Continue with statin treatment as already on. 6. Agree with perioperative antibiotic prophylaxis as instituted 7. Agree with postoperative venous thromboembolism prophylaxis as instituted. 8. He designates his as his power of assistant county attorney for health should that be required. 9. He requests full resuscitation in the event of cardiopulmonary demise, although he makes a very clear that he does not want to be kept alive in a vegetative state. 10. Patient agreeable to above stated plans and recommendations.
[2022-07-14] MEDS: CEFAZOLIN 3 GM in 0.9 % SODIUM CHLORIDE 100 ml 100 ML IVPB ×2 (14:51→22:35)
[2022-07-14] MEDS: OXYCODONE 5 MG TABLET PO (15:02)
--- NOTE | 2022-07-14 16:45 | PC.NURSE ---
Pt arrived in hospital bed from PACU @ 1143 pm s/p LTKA with Dr. Smallwood. Pt needed BP support with fluids and meds in PACU prior to arrival. Please see initial assessment from PACU and frequent VS per post op routine. Pt received IV Dilaudid 0.5 mg IV with scheduled dose of tylenol 1000mg PO for pain 5 out of 10. Later pt up to recliner per Sukumar in PT, IV ANCEF 3 grams given and 5 mg of oxycodone provided for pain 3-4 out of 10. Report to Mirna Fried RN for evening shift.
[2022-07-14] MEDS: METFORMIN 500 MG TABLET PO (17:42)
--- NOTE | 2022-07-14 18:53 | PC.NURSE ---
Shift Note: Pt doing well post op. A/o and able to verbalize needs. VS WNL and LS COA. Moves well to BR with assist x1 with GB and walker. Adequate urine output and great PO intake. IS to 2500. Surgical dressing C,D,&I with cryocuff in place.
[2022-07-14] MEDS: ATORVASTATIN 10 MG TABLET PO (21:13)
[2022-07-14] MEDS: SENNOSIDES 1 TAB TABLET 2 TAB PO (21:13)
[2022-07-14] MEDS: ASPIRIN 81 MG TABLET EC PO (21:13)
[2022-07-14] MEDS: SODIUM CHLORIDE 0.9 % (FLUSH) 10 ML SYRINGE 5 ML IVF (22:37)
[2022-07-15] MEDS: ACETAMINOPHEN 500 MG TABLET 1000 MG PO ×2 (02:25→09:02)
[2022-07-15 03:00] VITALS: BP 119/67; PULSE 79; RESP 18; TEMP 36.7; O2SAT 92
--- NOTE | 2022-07-15 05:09 | PC.NURSE ---
Shift note: Pt is able to ambulate with A1, walker and GB to and from BR. Pain has randall minimal and no post op complication noted. Drying appears dry ad clean. No Bm at this time but confirmed of passing gas. Tolerating regular diet very well. CMS intact.
[2022-07-15] MEDS: OMEPRAZOLE 20 MG CAPSULE DR PO (06:32)
[2022-07-15] MEDS: CEFAZOLIN 3 GM in 0.9 % SODIUM CHLORIDE 100 ml 100 ML IVPB (06:33)
[2022-07-15] MEDS: SODIUM CHLORIDE 0.9 % (FLUSH) 10 ML SYRINGE 5 ML IVF (06:34)
[2022-07-15 06:59] LABS: Hematocrit 35.6 % (37.0-53.0); Hemoglobin* 12.6 gm/dL (13.5-17.5); Immature Granulocytes Pct Auto 0.2 %; Mean Corpuscular HGB Conc 35 gm/dL (32-36); Mean Corpuscular Hemoglobin 29 pg (26-34); Mean Corpuscular Volume 83 fL (80-100); Monocytes Percent Auto 7.3 % (0.0-11.0); Neutrophils Percent Auto 85.5 % (42.0-72.0); Platelet Count* 265 K/uL (140-440); RDW Coefficient of Variation % 12.4 % (11.5-15.5); Red Blood Count 4.28 m/uL (4.30-5.90); White Blood Count* 12.55 K/uL (4.50-11.00)
[2022-07-15 07:04] LABS: Slide Review Reflex No
[2022-07-15 07:17] LABS: INR 1.12 (0.91-1.10); Prothrombin Time 15.1 Seconds
[2022-07-15 07:19] LABS: Potassium* 3.7 mmol/L (3.6-5.1); Sodium* 132 mmol/L (135-149)
[2022-07-15 07:22] LABS: Blood Urea Nitrogen* 19 mg/dL (7-30); Creatinine* 0.8 mg/dL (0.5-1.5); Estimated Glomerular Filt Rate 96 ml/min
[2022-07-15 07:35] VITALS: BP 128/66; PULSE 77; RESP 18; TEMP 36.4; O2SAT 94
[2022-07-15 07:40] VITALS: O2SAT 94
--- NOTE | 2022-07-15 08:59 | PM.ORPN ---
Subjective Subjective Time Seen by Provider: 07:30 Date Seen: 07/15/22 Principal diagnosis: Status post left knee replacement Interval history: Darius is comfortable this morning. He plans on discharging to home today. He states he has oxycodone at home and does not need any upon discharge today. Ortho Exam Narrative Exam Narrative: Alert and oriented x3. Patient is in no acute distress. Converses without labored breathing. Hearing is grossly intact. Ambulates with a walker. Examination of the left knee shows the dressing is intact. Mild effusion. Mild soft tissue edema about the knee. No sign of infection. Bilateral calves are soft and nontender. Good quad function. CMS intact left lower extremity. Const Vital Signs, click to edit/add: Vital Signs - 24 hr 07/14/22 11:17 07/14/22 11:38 07/14/22 11:43 Temperature 98.1 F Pulse Rate 66 60 60 Pulse Rate [Left Apical] Pulse Rate [Right Pulse Oximeter] Respiratory Rate 16 16 16 Blood Pressure 66/43 L 88/52 L 77/47 L Blood Pressure [Right Arm] Pulse Oximetry 96 95 97 Oxygen Delivery Method Non Rebreather Mask Non Rebreather Mask Non Rebreather Mask Oxygen Flow Rate 10 10 10 07/14/22 11:55 07/14/22 12:05 07/14/22 12:10 Temperature Pulse Rate 55 L 64 58 L Pulse Rate [Left Apical] Pulse Rate [Right Pulse Oximeter] Respiratory Rate 16 16 16 Blood Pressure 94/56 L 82/71 L 107/60 Blood Pressure [Right Arm] Pulse Oximetry 98 99 99 Oxygen Delivery Method Non Rebreather Mask Non Rebreather Mask Non Rebreather Mask Oxygen Flow Rate 5 5 5 07/14/22 12:25 07/14/22 12:30 07/14/22 11:19 Temperature 97.2 F L Pulse Rate 68 69 52 L Pulse Rate [Left Apical] Pulse Rate [Right Pulse Oximeter] Respiratory Rate 16 16 16 Blood Pressure 99/61 106/57 L 84/52 L Blood Pressure [Right Arm] Pulse Oximetry 96 96 96 Oxygen Delivery Method Nasal Cannula Nasal Cannula Non Rebreather Mask Oxygen Flow Rate 2 2 10 07/14/22 11:22 07/14/22 11:25 07/14/22 11:30 Temperature Pulse Rate 61 55 L 60 Pulse Rate [Left Apical] Pulse Rate [Right Pulse Oximeter] Respiratory Rate 16 16 16 Blood Pressure 75/43 L 87/50 L 81/48 L Blood Pressure [Right Arm] Pulse Oximetry 96 96 96 Oxygen Delivery Method Non Rebreather Mask Non Rebreather Mask Non Rebreather Mask Oxygen Flow Rate 10 10 10 07/14/22 11:35 07/14/22 11:40 07/14/22 11:45 Temperature Pulse Rate 57 L 60 55 L Pulse Rate [Left Apical] Pulse Rate [Right Pulse Oximeter] Respiratory Rate 16 16 16 Blood Pressure 90/55 L 82/48 L 89/47 L Blood Pressure [Right Arm] Pulse Oximetry 97 95 97 Oxygen Delivery Method Non Rebreather Mask Non Rebreather Mask Non Rebreather Mask Oxygen Flow Rate 10 10 10 07/14/22 11:50 07/14/22 11:59 07/14/22 12:15 Temperature Pulse Rate 56 L 60 67 Pulse Rate [Left Apical] Pulse Rate [Right Pulse Oximeter] Respiratory Rate 16 16 16 Blood Pressure 78/49 L 84/54 L 92/68 Blood Pressure [Right Arm] Pulse Oximetry 98 97 99 Oxygen Delivery Method Non Rebreather Mask Non Rebreather Mask Nasal Cannula Oxygen Flow Rate 5 5 2 07/14/22 12:18 07/14/22 12:20 07/14/22 12:28 Temperature Pulse Rate 67 68 69 Pulse Rate [Left Apical] Pulse Rate [Right Pulse Oximeter] Respiratory Rate 16 16 16 Blood Pressure 84/66 L 104/57 L 109/66 Blood Pressure [Right Arm] Pulse Oximetry 98 96 96 Oxygen Delivery Method Nasal Cannula Nasal Cannula Nasal Cannula Oxygen Flow Rate 2 2 2 07/14/22 12:34 07/14/22 15:00 07/14/22 15:00 Temperature Pulse Rate 69 Pulse Rate [Left Apical] Pulse Rate [Right Pulse Oximeter] 87 Respiratory Rate 16 18 Blood Pressure 107/58 L Blood Pressure [Right Arm] Pulse Oximetry 95 94 Oxygen Delivery Method Nasal Cannula Oxygen Flow Rate 2 07/14/22 12:43 07/14/22 12:40 07/14/22 13:00 Temperature 96.9 F L 96.9 F L Pulse Rate 74 Pulse Rate [Left Apical] 74 78 Pulse Rate [Right Pulse Oximeter] 74 78 Respiratory Rate 20 20 20 Blood Pressure Blood Pressure [Right Arm] 109/62 103/60 109/69 Pulse Oximetry 95 Oxygen Delivery Method Nasal Cannula Nasal Cannula Nasal Cannula Oxygen Flow Rate 2 2 2 07/14/22 13:15 07/14/22 13:30 07/14/22 13:45 Temperature Pulse Rate Pulse Rate [Left Apical] 81 78 81 Pulse Rate [Right Pulse Oximeter] 81 78 81 Respiratory Rate 20 20 20 Blood Pressure Blood Pressure [Right Arm] 110/67 107/65 108/65 Pulse Oximetry 94 94 95 Oxygen Delivery Method Nasal Cannula Nasal Cannula Nasal Cannula Oxygen Flow Rate 2 1 1 07/14/22 14:00 07/14/22 14:30 07/14/22 13:30 Temperature 97.6 F 97.6 F Pulse Rate Pulse Rate [Left Apical] 86 77 78 Pulse Rate [Right Pulse Oximeter] 86 77 87 Respiratory Rate 20 20 18 Blood Pressure Blood Pressure [Right Arm] 105/57 L 119/67 107/65 Pulse Oximetry 92 94 Oxygen Delivery Method Room Air Room Air Nasal Cannula Oxygen Flow Rate 1 07/14/22 13:45 07/14/22 16:00 07/14/22 15:00 Temperature 97.6 F 97.3 F L Pulse Rate Pulse Rate [Left Apical] 81 97 87 Pulse Rate [Right Pulse Oximeter] 81 Respiratory Rate 20 18 18 Blood Pressure Blood Pressure [Right Arm] 108/65 119/67 103/73 Pulse Oximetry 95 91 94 Oxygen Delivery Method Room Air Room Air Room Air Oxygen Flow Rate 1 07/14/22 17:00 07/14/22 18:00 07/14/22 19:00 Temperature 97.9 F 97.9 F Pulse Rate Pulse Rate [Left Apical] 97 103 H 97 Pulse Rate [Right Pulse Oximeter] Respiratory Rate 18 18 18 Blood Pressure Blood Pressure [Right Arm] 114/65 138/81 140/62 H Pulse Oximetry 94 93 93 Oxygen Delivery Method Room Air Room Air Room Air Oxygen Flow Rate 07/14/22 23:00 07/15/22 03:00 07/15/22 07:35 Temperature 98.1 F 97.6 F Pulse Rate Pulse Rate [Left Apical] 79 77 Pulse Rate [Right Pulse Oximeter] 77 Respiratory Rate 18 18 Blood Pressure Blood Pressure [Right Arm] 119/67 128/66 Pulse Oximetry 93 92 94 Oxygen Delivery Method Room Air Room Air Oxygen Flow Rate 07/15/22 07:40 Temperature Pulse Rate Pulse Rate [Left Apical] Pulse Rate [Right Pulse Oximeter] Respiratory Rate Blood Pressure Blood Pressure [Right Arm] Pulse Oximetry 94 Oxygen Delivery Method Oxygen Flow Rate Assessment and Plan Assessment and plan (1) Status post left knee replacement: Problem details: 07/14/2022, Dr. Smallwood Status: Acute Assessment and Plan: Darius is doing well this morning. He is comfortable. He did not sleep well. He had breakfast without nausea or vomiting. He has an appetite. We discussed dietary changes. He states he has been working on a low carb diet of mostly main vegetables. We discussed this is perfect. His blood glucose has been elevated. I spoke with Dr. Thao. He will set up an appointment with his family doctor at 2 weeks post op. Elevated glucose puts him at risk of infection. Plan for discharge is today to home if they meet discharge criteria. DVT prophylaxis includes aspirin 81 mg twice daily x1 month, Efrain stockings x1 month may remove for 1 hr per day, frequent ambulation Remove dressing in 1 week. Observe wound and phone Orthopedics with any questions or concerns Return to clinic in 1 week for a wound check Return to clinic in [address] Smallwood Minimize narcotic use. Wean off and discontinue soon as possible. Activities as tolerated. No strenuous activity. Outpatient physical therapy as scheduled. Ice and elevate the operative extremity. No restriction on ice. (2) Type 2 diabetes mellitus: Status: Acute (3) Hypertension: Status: Acute (4) Obesity: Status: Acute (5) GERD (gastroesophageal reflux disease): Status: Acute (6) Postoperative hypotension: Status: Acute (7) Anemia: Status: Acute
[2022-07-15] MEDS: SENNOSIDES 1 TAB TABLET 2 TAB PO (09:02)
[2022-07-15] MEDS: METFORMIN 500 MG TABLET 1000 MG PO (09:03)
[2022-07-15] MEDS: ASPIRIN 81 MG TABLET EC PO (09:04)
[2022-07-15] MEDS: OXYCODONE 5 MG TABLET PO (09:04)
--- NOTE | 2022-07-15 09:08 | PC.SOCIAL ---
Met with pt. to discuss discharge plans. This is pt.'s 2nd joint surgery and he plans to discharge home with his spouse. Pt. does not feel he will need any additional resources at discharge but is aware he can contact psychosocial rehabilitation counselor for resources if needed.
[2022-07-15 10:16] VITALS: BP 107/58; PULSE 74; RESP 18; TEMP 36.4
--- NOTE | 2022-07-15 13:46 | PC.NURSE ---
Please see eMar for meds given. Eval by PT, OT, Dr. Thao, ortho PA and myself this am. BG 176, pt received 2 units of SS insulin. Pt and verbalized understanding of d/c diagnosis, home meds, pain management plan, f/up appt and sx to report urgently to physician. D/C'ed via WC @ 11:40 with all personal belongings with [place] as transportation.
--- NOTE | 2022-07-15 15:22 | PM.DS1 ---
DS: Providers Provider Time Seen by Provider: 07:30 Date Seen: 07/15/22 Date of admission: 07/14/2022 Primary care physician: Anders Mirza MD Admitting Clinician: Vick Smallwood MD Consults: 07/14/22 12:40 Consult to Occupational Therapy [CONS] Routine Comment: Reason(s) for OT Consult:: ADLs Prior to Discharge Any Restrictions?:: See Comment Comment: See nursing activity order for any restrictions. Consult to Physical Therapy [CONS] Routine Comment: Ambulate in the [facility] today. Reason(s) for PT Consult:: TKA [place] Protocol POD#0 Any Restrictions?:: See Comment Comment: See nursing activity order for any restrictions. Consult to Physician [CONS] Routine Comment: Consulting Provider: Hospitalists Has provider been notified: No Consult to Gauger Chief [CONS] Routine Comment: Reason for Consult:: Discharge Planning Needs Attending Physician on discharge: Vick Smallwood MD Date of Discharge: 07/15/22 DS: Diagnosis Discharge Diagnosis (1) Status post left knee replacement: Status: Acute Problem details: 07/14/2022, Dr. Smallwood (2) Postoperative hypotension: Status: Acute (3) Anemia: Status: Acute (4) Type 2 diabetes mellitus: Status: Acute (5) Hypertension: Status: Acute (6) Obesity: Status: Acute (7) GERD (gastroesophageal reflux disease): Status: Acute DS: Summary Hospital Course Hospital Course: 66-year-old man presents for an elective left total knee arthroplasty due to severe, advanced left gonarthrosis. This is undertaken successfully without any complications. Postoperatively in the postanesthesia care unit he had hypotension with systolic blood pressures from 85-95. Eventually this normalized with adequate fluid resuscitation, 3 L of crystalloid IV fluids. We held his antihypertensive medications throughout his hospital stay. Continued with his other medications. Instituted sliding scale aspart insulin while in hospital. Recommended follow-up with his primary care physician shortly to readdress blood sugar management, given that wound healing occurs maximally with blood sugar values between 100 and 180, his values being much greater than this. Also reviewing his medical records his serum sodium tends to be modestly low. Does take hydrochlorothiazide as 1 of his antihypertensive medications. We stopped the hydrochlorothiazide while in hospital. Continued with his 3 other antihypertensive medications. Should edema or heart failure become a problem in the future, consider a loop diuretic instead of hydrochlorothiazide and compression stockings as warranted. Currently utilizing thigh-high compression stockings as part of his venous thromboembolism prophylaxis efforts. Status at Discharge Functional status at discharge: uses cane/walker Overall status at discharge: patient is progressing back to baseline Time Spent with Patient Time attestation: Total time spent providing and/or coordinating discharge services: Time spent: Less than 30 minutes Exam Narrative: Exam Narrative: Appears comfortable and in no acute distress. Alert, oriented to self, place, time, situation.? Friendly, articulate, cooperative.? Vision and hearing are grossly normal.? Moist buccal mucosa. No skin tenting.? Lungs are clear to auscultation.? Heart tones with regular rhythm, normal S1-S2, without murmur, gallop, or rub.? Abdomen obese with active bowel sounds, soft, nontender.? Can move toes on the affected left side. No focal motor neurologic deficits Const: Vital Signs, click to edit/add: Vital Signs - 24 hr 07/14/22 16:00 07/14/22 17:00 07/14/22 18:00 Temperature 97.6 F 97.9 F Pulse Rate Pulse Rate [Left A pical] 97 97 103 H Pulse Rate [Right Pulse Oximeter] Respiratory Rate 18 18 18 Blood Pressure Blood Pressure [Ri ght Arm] 119/67 114/65 138/81 Pulse Oximetry 91 94 93 Oxygen Delivery Az thod Room Air Room Air Room Air 07/14/22 19:00 07/14/22 23:00 07/15/22 03:00 Temperature 97.9 F 98.1 F Pulse Rate Pulse Rate [Left A pical] 97 79 Pulse Rate [Right Pulse Oximeter] Respiratory Rate 18 18 Blood Pressure Blood Pressure [Ri ght Arm] 140/62 H 119/67 Pulse Oximetry 93 93 92 Oxygen Delivery Az thod Room Air Room Air 07/15/22 07:35 07/15/22 07:40 07/15/22 10:16 Temperature 97.6 F 97.6 F Pulse Rate 74 Pulse Rate [Left A pical] 77 Pulse Rate [Right Pulse Oximeter] 77 Respiratory Rate 18 18 Blood Pressure 107/58 L Blood Pressure [Ri ght Arm] 128/66 Pulse Oximetry 94 94 Oxygen Delivery Az thod Room Air Documenting provider has reviewed patient's vital signs: yes DS: Data Data Completed and Pending Labs on day of discharge: Labs from last 24 hours 07/15/22 07/15/22 07/15/22 06:36 06:36 06:36 WBC 12.55 H RBC 4.28 L Hgb 12.6 L Hct 35.6 L MCV 83 MCH 29 MCHC 35 RDW Coeff of Toya 12.4 Plt Count 265 Neut % (Auto) 85.5 H Lymph % (Auto) 7.0 L Whiteside % (Auto) 7.3 Eos % (Auto) 0.0 Baso % (Auto) 0.0 Neut # (Auto) 10.70 H Lymph # (Auto) 0.90 Whiteside # (Auto) 0.90 Eos # (Auto) 0.00 Baso # (Auto) 0.00 INR 1.12 H Sodium 132 L Potassium 3.7 BUN 19 Creatinine 0.8 Estimated Creat Clear 66.10 Estimated GFR 96 Discharge Plan Discharge Disposition: Home, Self-Care Discharging Surgeon: Vick Smallwood Follow-Up Appointment: One week Prescriptions: New sennosides [Senna Lax] 8.6 mg Tablet 17.2 mg PO BID PRN (Reason: constipation) Qty: 100 0RF aspirin [Aspirin Childrens] 81 mg tablet,chewable 81 mg PO BID 30 Days Qty: 60 0RF acetaminophen 500 mg capsule 500 - 1,000 mg PO Q6H MDD 4000mg per day PRN (Reason: pain) Qty: 100 0RF lisinopril 20 mg tablet 20 mg PO DAILY Qty: 30 2RF Continued atorvastatin 10 mg tablet 10 mg PO HS atenolol 100 mg tablet 100 mg PO DAILY metformin 500 mg tablet 500 - 1,000 mg PO BIDWMEAL Rx Instructions: 1000mg in the am and 500mg in the pm pantoprazole [Protonix] 20 mg tablet,delayed release (DR/EC) 20 mg PO DAILY amlodipine 10 mg tablet 10 mg PO DAILY Qty: 90 0RF Held aspirin 81 mg tablet,delayed release (DR/EC) 81 mg PO DAILY Hold Instructions: Resume on 08/14/22. Resume 81 mg per day dose after completing the 1 month course of 81 mg twice daily per your orthopedic surgeon. Discontinued lisinopril-hydrochlorothiazide 20-25 mg tablet 1 tab PO DAILY acetaminophen 500 mg tablet 500 - 1,000 mg PO Q6H PRN Activity Level: Activity as Tolerated and No strenuous activity Activity Detail: Keep dressing on for 1 week. Dressing is waterproof. May shower. Surgical glue covers the wound. Attend outpatient physical therapy if scheduled. Ice and elevate operative extremity without restriction. Wear compression stockings for 1 month post surgery. May remove for 1 hour per day. Ambulate every hour throughout the day. If you drive, Do not drive while taking narcotic pain medication. Do not drink alcohol while taking narcotic pain medication. May drive when safe to do so and have full function of the extremities, this may take 6 weeks or more. Notify Orthopedics with any questions or concerns. ([phone]) Continue to take Oxycodone as needed per prescription. Discharge Diet: Diabetic and 2 gm Sodium Patient Instructions: Lisinopril (By mouth), Acetaminophen (By mouth), Aspirin (By mouth), Oxycodone, Rapid Release (By mouth), Senna (By mouth) (Sen, Senna-lax), Knee Replacement (DC) Forms: Work/School Release Follow-up: Berenice Dixon PA-C [Physician Ophthalmic Lens Inspector] - 07/22/22 11:40 am ([facility] Anders Mirza MD [Primary Care Provider] - 07/29/22 10:15 am (2 weeks, with pre-visit Basic Metabolic Panel after discontinuation of HTCZ to re-address BP, Na, kidney, glucose - post-op glucose goal 100-180 for optimal WBC function) Discharge Orders: Discharge Order (Routine); Ordered 07/15/22 Ordered By: Clara Arreguin Consulting provider completed their portion of the discharge: Yes
== END 2022-07-15 11:40 | disposition home or self-care (01) ==
LOC: OR 06:40 → MEDSURG 06:44
PROVIDERS: PCP Internal Medicine; Visit Provider Orthopaedic Surgery
PROC: (CPT 27447; principal; 2022-07-14 08:45)
DX: M17.12 Unilateral primary osteoarthritis, left knee (principal); I95.81 Postprocedural hypotension; E11.9 Type 2 diabetes mellitus without complications; I10 Essential (primary) hypertension; E66.9 Obesity, unspecified; K21.9 Gastro-esophageal reflux disease without esophagitis; D64.9 Anemia, unspecified; Z68.41 Body mass index [BMI] 40.0-44.9, adult
CPT/HCPCS: 27447; 01402; 36415; 64447; 64454; 73560; 76942; 82565; 82962; 84132; 84295; 84520; 85025; 85610; 97110; 97116; 97161; 97165; 97530; A9270; C1776; J0690; J1100; J1170; J2250; J2370; J2704; J2795; J3010; J7120

== ENCOUNTER 2022-08-31 08:00 | Outpatient (RCR) | payer MEDICARE, BC, SELFPAY ==
--- NOTE | 2022-07-20 09:25 | PT.OPEX ---
PT [place] Outpatient Eval PT [facility] Outpatient Eval Start: 07/17/22 12:45 Freq: Status: Active Protocol: Document 07/17/22 12:45 RUSSEL (Rec: 07/17/22 12:46 RUSSEL [id number]) E-signed By Misael Taveras DPT, MS Physical Therapy Outpatient Evaluation Insurance Information Recert Due Date 10/15/22 Insurance Name Medicare B,Blue Cross/Blue Shield Medical Diagnosis Left TKA post-operative Treating Diagnosis L knee pain, decreased L LE flexibility and ROM, imbalance , gait dysfunction and L LE weakness. Subjective Subjective Pt presents to PT to PT following R TKA on 07/14/21 with D/C to home with his on 07/15/21. Doing well returning home with elevated soreness yesterday. Sleeping well in a recliner with ice being very helpful. L knee had been giving him issues for quite a while leading up to surgery. 2 stairs to enter his home going well with FWW and SPC. R knee doing well after R TKA last year. PMH includes controlled HTN and DM-II. AGGR factors: walking, standing, getting up out of chairs, bending or twisting, sleeping, walking on uneven ground. ALLEV factors: ice, oxycodone, Tylenol. Pt highly motivated to return to performing yardwork and hunting with less pain. Current Work Status Retired Preferred Name Darius Precautions Weight Bearing Status Weight Bear as Tolerated Therapy Limitations/Systems Review Not Limited Objective Functional Test Performed & Score LEFS: 8 Assessment Assessment/Impression Pt is doing well post-op with well managed pain levels. L knee ROM 0-3-92 deg. Stable gait pattern with decreased velocity with a 4WW. Good quality of quad sets with mod A required for SLR. Encouraged pt to move his R LE often to decrease stiffness and pain. Reviewed pt?s HEP with decreased knee pain following with excellent compliance. He will benefit from continued skilled therapy to address these limitations. Primary Functional Limitations Walking, stair climbing, standing, sitting, in<>out of cars, sleeping Plan of Care Rehabilitation Potential Excellent Physical Therapy Goals Short-term goals to be completed in 4 weeks: 1.Pt will display improved L knee passive ROM > 0-0-120 deg to improve quality of stair climbing. 2.Pt will display improved L LE strength as evidenced by ability to perform >12 SLR of good quality to improve quality of gait and progress to ambulation with single point cane. 3.Pt will report waking <3 times per night due to L knee pain to improve quality of sleep. Long-term goals to be completed in 10 weeks: 1.Pt will be independent and compliant with HEP 2.Pt will display improved L hip flex, hip ABD, quad and hamstring strength >4/5 to improve quality of gait without assistive device. 3.Pt will display improved mechanics going up<>down >3 stairs with a reciprocal pattern using 1 railing to safely enter his home. 4.Pt report >75% improvement in LEFS questionnaire to significantly improve scarlett to daily activities. Coordination/Communication With Referral Source,Patient Caregiver Treatment Plan/Direct Interventions Joint Mobilization,Manual Therapy,Neuromuscular Re-ed, Therapeutic Exercises Frequency/Duration 2x per week for 12-18 visits, decreasing visit frequency as able. Patient Will Be Discharged From Therapy Completion of LTG(s),Skills Plateau,Independent w/HEP, Independently Progressing Evaluation Billing Untimed Code Treatment Minutes 22 Complexity Moderate Certification Information Initial Certification Date 07/17/22 Ending Certification Date 10/15/22 Provider Signature Shows Agreement With POC & Medical Necessity Physician Signature & Date Requested Please Sign/Date Here Physician Comment/Change : Physician NPI Number #
== END 2022-11-23 12:51 | disposition home or self-care (01) ==
PROVIDERS: PCP Internal Medicine; Visit Provider Orthopaedic Surgery
DX: M17.12 Unilateral primary osteoarthritis, left knee (principal); Z51.89 Encounter for other specified aftercare
CPT/HCPCS: 97110; 97140; 97162

== ENCOUNTER 2022-09-01 08:09 | Outpatient (CLI) | payer MEDICARE, BC, SELFPAY | END 2022-09-01 08:10 | disposition home or self-care (01) | PROVIDERS: PCP Internal Medicine; Visit Provider Internal Medicine | DX: Z96.652 Presence of left artificial knee joint (principal) | CPT/HCPCS: 80048 ==

== ENCOUNTER 2022-09-22 12:34 | Outpatient (CLI) | payer MEDICARE, BC, SELFPAY ==
--- NOTE | 2022-09-22 13:00 | CRLHL7_ITS ---
For Patients: As a result of the Century Cures Act, medical imaging exams and procedure reports are released immediately into your electronic medical record. You may view this report before your referring provider. If you have questions, please contact your health care provider. Indication: Lumbar pain, suspect spinal stenosis Technique: Multiplanar, multisequence, MRI of the lumbar spine, obtained without contrast. Comparison: Lumbar spine x-ray 09/14/2022 Findings: For numbering purposes, there are 5 [id number] lumbar vertebrae, followed by a transitional-partially lumbarized S1 segment, and a STIR hyperintense rudimentary S1-2 intervertebral disc. Lumbar dextrocurvature with slightly exaggerated lordosis. Degenerative grade 1 retrolisthesis at L1-2, L2-3, and L3-4, anterolisthesis at L5-S1. No acute osseous abnormality. Mild left eccentric Modic type 1 endplate changes at L2-3, Modic type 2 endplate changes at L3-4. The conus medullaris terminates head approximately L2. No suspicious findings in the paravertebral soft tissues. Mild degenerative changes at the SI joints, left more than right. L1-L2: Retrolisthesis, mild diffuse disc bulge. No significant neural foraminal or spinal canal stenosis. L2-L3: Retrolisthesis, facet arthropathy, large central disc protrusion/extrusion measuring 1.2 x 1.2 x 1.6 cm AP/TR/CC. Severe spinal canal stenosis, with tortuous/redundant course of the cauda equina nerve roots directly above this level. Moderate left neural foraminal stenosis. No right neural foraminal stenosis. L3-L4: Retrolisthesis, disc-osteophyte complex, facet arthropathy. Mild right, moderate-severe left neural foraminal stenosis. Moderate spinal canal stenosis. L4-L5: Diffuse disc bulge, facet arthropathy. Moderate bilateral foraminal stenosis. Mild-moderate spinal canal narrowing. L5-S1: Anterolisthesis, right eccentric disc bulge with right central/subarticular cranial disc extrusion and facet arthropathy. Mild left, severe right neural foraminal stenosis, with likely impingement of the exiting right L5 nerve root. Right lateral recess stenosis with likely impingement of the descending right S1 nerve root. No central spinal canal stenosis. Impression: 1. For numbering purposes, there are 5 [id number] lumbar vertebrae, a transitional-partially lumbarized S1 segment, and a STIR hyperintense rudimentary S1-2 intervertebral disc. 2. Lumbar dextrocurvature, with exaggerated lordosis, multilevel degenerative grade 1 spondylolisthesis and degenerative end-plate changes as detailed. 3. At L2-3, large central disc protrusion/extrusion with severe spinal canal stenosis and moderate left neural foraminal stenosis. 4. At L3-4, moderate spinal canal stenosis and moderate-severe left neural foraminal stenosis. 5. At L4-5, mild-moderate spinal canal narrowing and moderate bilateral neural foraminal stenosis. 6. At L5-S1, right eccentric disc bulge and right central/subarticular cranial disc extrusion with severe right neural foraminal stenosis and right lateral recess stenosis, likely impinging the exiting right L5 and descending right S1 nerve roots. Dictated by Karmen Carmona MD @ 09/22/2022 2:56:06 PM (Electronically Signed)
== END 2022-09-22 12:35 | disposition home or self-care (01) ==
LOC: MRI 12:35
PROVIDERS: PCP Internal Medicine; Visit Provider Family Medicine
DX: M54.50 Low back pain, unspecified (principal); M51.26 Other intervertebral disc displacement, lumbar region
CPT/HCPCS: 72148

== ENCOUNTER 2022-09-29 07:33 | Outpatient (CLI) | payer MEDICARE, BC, SELFPAY | END 2022-09-29 07:34 | disposition home or self-care (01) | PROVIDERS: PCP Internal Medicine; Referring Provider Internal Medicine; Visit Provider Internal Medicine | DX: I10 Essential (primary) hypertension (principal); E66.9 Obesity, unspecified; D64.9 Anemia, unspecified | CPT/HCPCS: 80048 ==

== ENCOUNTER 2022-11-23 08:00 | Outpatient (RCR) | payer MEDICARE, BC, SELFPAY | END 2023-03-23 23:59 | disposition home or self-care (01) | PROVIDERS: PCP Internal Medicine; Visit Provider Specialist | DX: M41.25 Other idiopathic scoliosis, thoracolumbar region (principal); M48.062 Spinal stenosis, lumbar region with neurogenic claudication; R26.9 Unspecified abnormalities of gait and mobility; M62.81 Muscle weakness (generalized); G89.29 Other chronic pain; Z51.89 Encounter for other specified aftercare | CPT/HCPCS: 97110; 97162 ==

== ENCOUNTER 2023-06-01 09:06 | Outpatient (CLI) | payer MEDICARE, BC, SELFPAY ==
--- NOTE | 2023-06-01 09:15 | MR_ITS ---
[address] [address] Phone:?[phone] Fax:?[phone] Referring Physician Information: Vick Smallwood M.D. [address] [facility] [address] Phone:?[phone] Fax:?[phone] Patient:[facility] Gonzalez D.O.B:?1955 Sex:?Male Phone:?[phone] [facility] MRN:?[id number] Exam Date:?06/01/2023 EXAM: MRI of the LEFT SHOULDER, without contrast CLINICAL INFORMATION: Male, 67 years old, with left shoulder pain. INDICATION: Evaluate for rotator cuff tear. PRIOR SURGERY: None reported. PLAIN FILMS: None available. COMPARISONS: No prior MRIs available. TECHNICAL INFORMATION: Using a 1.5T MR scanner and a localizing surface coil: coronal obliques: PD, T2, STIR sagittal obliques: PD, T2 axials: PD, T2 SEDATION: None CONTRAST: None FINDINGS: Bones: Proximal humerus: No fracture or marrow edema/pathology. No humeral Hill-Sachs or reverse Hill-Sachs lesion/impaction or contusion. Glenoid: No fracture or marrow edema/pathology. No osseous Bankart lesion. Rotator cuff and muscles/tendons: Supraspinatus: Mild supraspinatus tendinopathy, without tendon tear or muscle atrophy. Infraspinatus: Mild-moderate infraspinatus tendinopathy, without tendon tear or muscle atrophy. Teres minor: No tendinopathy, tear or atrophy. Subscapularis: Mild-moderate tendinopathy of the superior distal subscapularis, without tendon tear or muscle atrophy. Deltoid: No strain or atrophy. Coracoacromial arch: Acromion morphology: The acromion has type II morphology. No discrete subacromial osseous spur or os acromiale. Acromiohumeral space: The acromiohumeral space measures 5.6 mm at its narrowest point (osseous distance). Coracohumeral space: The coracohumeral space is within normal limits. Acromioclavicular joint: Joint: Moderate-marked AC joint arthropathy, with 7 mm of inferior osteophytosis, which encroaches upon the underlying supraspinatus (sagittal PD series 7 image 14 and coronal T2 series 6 image 7). Ligaments: Coracoclavicular ligaments are intact. Bursae: Subacromial-subdeltoid: Mild subacromial-subdeltoid bursal thickening/edema. Subcoracoid: No convincing subcoracoid bursal thickening/bursitis. Biceps tendon: The long head of the biceps tendon is present within the bicipital groove. Moderate tendinopathy and fraying of the intra-articular biceps long head tendon, without split/tear (sagittal T2 series 8 images 8-13) Glenohumeral joint: Effusion/cyst: Small glenohumeral joint effusion. Articular cartilage: Humeral head: Generalized grade IV chondromalacia of the humeral head with marked inferomedial marginal osteophytosis. Glenoid: Generalized grade IV chondromalacia of the glenoid, with marked anterior and moderate posterior marginal osteophytosis. Loose bodies: Approximately 2.7 x 1.8 x 2.2 cm intra-articular body is present in the subscapularis recess (sagittal T2 series image 14 and axial PD series 3 image 52) Labrum:?Circumferential degeneration and tearing of the labrum, which is of doubtful clinical significance. Inferior glenohumeral ligament/axillary pouch:?Intact. The axillary pouch is normal in thickness and signal. No evidence of adhesive capsulitis or capsular injury. IMPRESSION: 1. Advanced osteoarthritis of the glenohumeral joint with a small joint effusion and large intra-articular body in the subscapularis recess. 2. Mild-moderate infraspinatus & subscapularis and mild supraspinatus tendinopathy. No rotator cuff tendon tear. 3. Moderate tendinopathy and fraying of the intra-articular biceps long head tendon. 4. Circumferential degeneration and tearing of the labrum, which is of doubtful clinical significance. 5. Moderate-marked AC joint arthropathy with inferior osteophytosis cyst that encroaches upon the underlying supraspinatus. Additionally, there is mild subacromial-subdeltoid bursal inflammation and mild narrowing of the acromiohumeral space. BC Electronically signed on 06/01/2023 12:26:00 PM by Naga Kyle M.D.
== END 2023-06-01 09:07 | disposition home or self-care (01) ==
LOC: MRI 09:07
PROVIDERS: PCP Internal Medicine; Visit Provider Orthopaedic Surgery
DX: M25.512 Pain in left shoulder (principal); M19.012 Primary osteoarthritis, left shoulder; M75.102 Unspecified rotator cuff tear or rupture of left shoulder, not specified as traumatic; M25.412 Effusion, left shoulder
CPT/HCPCS: 73221

== ENCOUNTER 2023-07-05 07:55 | Outpatient (CLI) | payer MEDICARE, BC, SELFPAY ==
--- OUTSIDE RECORDS SUMMARY | 2023-07-07 13:19 | XMS_ITS | Encounter Summary ---
Author Name Unknown Organization [facility] Address [address] [place] [address]. [place] [address] Care Team Providers Care Java Xml Developer Name Role Phone Anders Mirza MD Primary Care Provider Reason for Visit * Auth/Cert (Routine) Specialty Diagnoses / Procedures Referred By Contac t Referred To Contact Surgery Diagnoses Lower extremity weakness Herniation of lumbar intervertebral disc with radiculopathy Lower extremity weakness [R29.898] Herniation of lumbar intervertebral disc with radiculopathy [M51.16] Procedures KS PERC LAMINO-/LAMINECTOMY INDIR IMAG GUIDE LUMBAR KS LAMNOTMY INCL W/DCMPRSN NRV ROOT 1 INTRSPC LUMBR Left Lumbar 2 to Lumbar 3 Minimally Invasive Microdiscectomy Periop Services [address] [place] [address] Referral ID Status Reason Start Date Expiration Date Visits Re quested Visits Authorized [id number] 1 1 Encounter Details Date Type Department Care Team (Late st Contact Info) Description 10/22/2022 7:30 AM CDT - 10/22/2022 9:55 AM CDT Surgery [facility] PeriOp Services [address] [place] [address] Braden Ballard MD [facility] [address] [place] [address] Minimally invasive left L2-3 microdiscectomy with use of MetRx Surgery Details Date/Time Status Location OR Service Patient Class Case Class Case Type Trauma Case? 10/22/22 7:30 AM Posted OR OR 09 Neurosurgery Same Day Surgery Panel 1 Procedure LRB Anes Op Region Wound Class Comments Minimally invasive left L2-3 microdiscectomy with use of MetRx Left General Spine I-Clean Surgeon Surgeon Role Service Panel Braden Ballard MD Primary Neurosurger y 1 documented in this encounter Social History Tobacco Use Types Packs/Day Years Used Date Smoking Tobacco: Never Smokeless Tobacco: Never Tobacco Cessation:Counseling Given: Not Answered Alcohol Use Standard Drinks/Week Comments Not Currently 0 (1 standard drink = 0.6 oz pur e alcohol) Sex and Gender Information Value Date Recorded Sex Assigned at Not on file Gender Identity Not on file Sexual Orientation Not on file COVID-19 Exposure Response Date Recorded In the last 10 days, have yo u been in contact with someone who was confirmed or suspected to have Coronavirus/COVID-19? No / Unsure 10/22/2022 5:11 AM CDT documented as of this encounter Last Filed Vital Signs Vital Sign Reading Time Taken Comments Blood Pressure 130/61 10/22/2022 9:55 AM CDT Pulse 82 10/22/2022 9:55 AM CDT Temperature 36.2 ??C (97.1 ??F) 10/22/2022 9:41 AM CD T Respiratory Rate 18 10/22/2022 9:55 AM CDT Oxygen Saturation 100% 10/22/2022 9:55 AM CDT Inhaled Oxygen Concentration - - Weight 129.1 kg (284 lb 9.6 oz) 10/22/2022 5:41 AM CDT Height 172.7 cm (5' 7.99) 10/22/2022 5:41 AM CD T Body Mass Index 43.28 10/22/2022 5:41 AM CDT documented in this encounter Discharge Instructions * Discharge Instructions* Alejandrina Gomez, RN - 10/22/2022 9:[address] BRADEN BALLARD M.D. [facility] PHONE NUMBER: [phone] GENERAL ANESTHESIA OR SEDATION ADULT DISCHARGE INSTRUCTIONS SPECIAL PRECAUTIONS FOR 24 HOURS AFTER SURGERY IT IS NOT UNUSUAL TO FEEL LIGHT-HEADED OR FAINT, UP TO 24 HOURS AFTER SURGERY OR WHILE TAKING PAIN MEDICATION. IF YOU HAVE THESE SYMPTOMS; SIT FOR A FEW MINUTES BEFORE STANDING AND HAVE SOMEONE ASSIST YOU WHEN YOU GET UP TO WALK OR USE THE BATHROOM. YOU SHOULD REST AND RELAX FOR THE NEXT 24 HOURS AND YOU MUST MAKE ARRANGEMENTS TO HAVE SOMEONE STAYWITH YOU FOR AT LEAST 24 HOURS AFTER YOUR DISCHARGE. AVOID HAZARDOUS AND STRENUOUS ACTIVITIES. DO NOT MAKE IMPORTANT DECISIONS FOR [address] ANY VEHICLE OR OPERATE MECHANICAL EQUIPMENT FOR 24 HOURS FOLLOWING THE END OF YOUR SURGERY. EVEN THOUGH YOU MAY FEEL NORMAL, YOUR REACTIONS MAY BE AFFECTED BY THE MEDICATION YOU HAVE RECEIVED. DO NOT DRINK ALCOHOLIC BEVERAGES FOR 24 HOURS FOLLOWING YOUR SURGERY. DRINK CLEAR LIQUIDS (APPLE JUICE, LUIS ANTONIO AL, 7-UP, BROTH, ETC.). PROGRESS TO YOUR REGULAR DIET YOU FEEL ABLE. YOU MAY HAVE A DRY MOUTH, A SORE THROAT, MUSCLES ACHES OR TROUBLE SLEEPING. THESE SHOULD GO AWAY AFTER 24 HOURS. CALL YOUR DOCTOR FOR ANY OF THE FOLLOWING: SIGNS OF INFECTION (FEVER, GROWING TENDERNESS AT THE SURGERY SITE, A LARGE AMOUNT OF DRAINAGE OR BLEEDING, SEVERE PAIN, FOUL-SMELLING DRAINAGE, REDNESS OR SWELLING. IT HAS BEEN OVER 8 TO 10 HOURS SINCE SURGERY AND YOU ARE STILL NOT ABLE TO URINATE (PASS WATER). documented in this encounter Medications at Time of Discharge Medication Sig Dispensed Refills Start Date End Date acetaminophen (TYLENOL) 500 MG tablet Take 500-1,000 mg by mouth every 6 hours as needed for mild pain 0 amLODIPine (NORVASC) 10 MG tablet Take 10 mg by mouth daily 0 atenolol (TENORMIN) 100 MG tablet Take 100 mg by mouth daily 0 atorvastatin (LIPITOR) 10 MG tablet Take 10 mg by mouth daily 0 lisinopril (ZESTRIL) 40 MG tablet Take 40 mg by mouth daily 0 metFORMIN (GLUCOPHAGE) 500 MG tablet Take 1,000 mg by mouth 2 times daily (with meals) 0 methocarbamol (ROBAXIN) 750 MG tabletIndications:S/P lumbar microdiscectomy Take 1 tablet (750 mg) by mouth 4 times daily as needed for muscle spasms 60 tablet 0 10/22/2022 oxyCODONE (ROXICODONE) 5 MG tabletIndications:S/P lumbar microdiscectomy Take 1-2 tablets (5-10 mg) by mouth every 6 hours as needed for pain 20 tablet 0 10/22/2022 pantoprazole (PROTONIX) 20 MG EC tablet Take 20 mg by mouth daily 0 documented as of this encounter H&P Notes * Christ Islas MD - 10/22/2022 6:25 AM CDT I have reviewed the surgical (or preoperative) H&P that is linked to this encounter, and examined the patient. There are no significant changes Clinical Conditions Present on Arrival: Clinically Significant Risk Factors Present on Admission # Drug Induced Platelet Defect: home medication list includes an antiplatelet medication # Severe Obesity: Estimated body mass index is 43.28 kg/m?? as calculated from the following: Height as of this encounter: 1.727 m (5' 7.99). Weight as of this encounter: 129.1 kg (284 lb 9.6 oz). Source Note - Outside, Provider - 10/21/2022 2:37 PM CDT documented in this encounter Miscellaneous Notes * Op Note - Braden Ballard MD - 10/22/2022 8:01 AM CDT Operative Report PREOPERATIVE DIAGNOSIS: 1. Left L2-3 herniated disk with BLE lower extremity radiculopathy 2. Dorsiflexion weakness 3. Morbid obesity with BMI of 43.64 POSTOPERATIVE DIAGNOSIS: Same PROCEDURE: 1. Minimally invasive left L2-3 microdiscectomy with use of MetRx tube 2. Significant additional work was required due to the patient's morbid obesity and BMI of 43.64 3. Use of intraoperative C-arm fluoroscopy and intraoperative microscope SURGEON: Braden Ballard MD, MS, [employer] QUAL[employer] ASSURANCE OFFICER: Kal Leong SA INDICATION FOR PROCEDURE: The patient is a 67 year old morbidly obese male that presented with lumbar radiculopathy and dorsiflexion weakness. After reviewing the imaging studies and examination, thedecision was made to proceed with the above procedure. The patient understood the risk of surgery to be infection, CSF leak, nerve root injury, failure of improvement of his symptoms. The patient voiced understanding and wanted to proceed. DESCRIPTION OF PROCEDURE: The patient was seen in the pre op area and the procedure was discussed with the patient and family once again and all questions were answered. The consent was then signed and the lumbar spine was marked with a marker. The patient was transported to the operating room on [facility] and received general endotracheal anesthesia. The patient was placed on the operating table in the prone position on the Bryant frame with all pressure points padded. The planned operative area of the back was prepped and draped in normal sterile fashion. C-arm was used to identify the appropriate level. Local anesthesia was then injected along the planned incision. The midline was ident ified and the planned incision was marked 1.5 cm left of midline. A spinal needle was then used to identify the appropriate level of L2-3. A 10 blade scalpel was used to make a linear incision with dissection down through the subcutaneoustissue to the fascia. The fascia was opened on the left side with the Bovie cautery. The sequentialdilators were then advance under C- arm guidance until the 7 cm MetRx tube was docked on the L2 lamina. The tube was then fixed to the operating table and C-arm was used to verify the appropriate level. Subperiosteal dissection exposed the lamina facet joint at L2-3. Significant additional work was required to expose the lamina and facet joint and also the dura due to the patient's morbid obesity.The Midas Adryan drill and the Kerrison rongeur were used to perform the hemilaminectomy, medial facete ctomy, foraminotomy, and to remove the ligamentum flavum. The thecal sac and L3 nerve root was identified. There was a very large left paracentral herniated disc with compression of the thecal sac and the left L3 nerve root. The annulus was incised with the 11 blade knife and the disk was then removed with the Mario curette and also the pituitary rongeur. The nerve root was then noted to be decompressed and the long ball hook was used to verify that. Copious irrigation was performed with saline. The MetRx tube was removed and the wound was irrigated once again. The fascia was then closed with 2-0 Vicryl, the subcutaneous tissue with 3-0 Vicryl, and the skin closed with Dermabond. [facility], and sent to recovery. At the end of the case, all counts were correct. No complications. ESTIMATED BLOOD LOSS: 20 ml IV FLUID: See Anesthesia The patient received Ancef preoperatively documented in this encounter Plan of Treatment Not on file documented as of this encounter Procedures Procedure Name Priority Date/Time Associated Diagnosis Comments XR SURGERY VARGHESE FLUORO LESS THAN 5 MIN W STILLS Routine 10/22/2022 9:59 AM CDT GLUCOSE BY METER Routine 10/22/2022 9:45 AM CDT DISCECTOMY, SPINE, LUMBAR, MINIMALLY INVASIVE, 1 LEVEL 10/22/2022 7:26 AM CDT Lower extremity weakness Herniation of lumbar intervertebral disc with radiculopathy GLUCOSE BY METER Routine 10/22/2022 5:39 AM CDT EKG CARDIAC - HIM SCAN 10/20/2022 12:00 AM CDT EKG CARDIAC - HIM SCAN 07/08/2022 12:00 AM PARTITION NOTCHER documented in this encounter Results * XR Surgery VARGHESE Fluoro Less Than 5 Min w Stills (10/22/2022 9:59 AM CDT) Narrative RADIANT - 10/22/2022 10:00 AM CDT This exam was marked as non-reportable because it will not be read by a radiologist or a [facility] non-radiologist provider. Brdaen Ballard MD IMG DIAGNOST IC IMAGING ORDERABLES RADIANT * (ABNORMAL) Glucose by meter (10/22/2022 9:45 AM CDT) GLUCOSE BY METER POCT 171(H) 70 - 99 mg/dL 10/22/2022 9:52 AM CDT [facility] LABORATORY POC Blood, Capillary BLOOD SPECIMEN / Unknown 10/22/2022 9:45 AM CDT 10/22/2022 9:52 AM CDT Braden Ballard MD LAB - BEAKER POCT [facility] LABORATORY [facility] [address] [facility] (1st floor, no room number) [place] [address], [facility] [phone] * (ABNORMAL) Glucose by meter (10/22/2022 5:39 AM CDT) [facility] Signature GLUCOSE BY METER POCT 135(H) 70 - 99 mg/dL 10/22/2022 5:45 AM CDT LABORATORY POC Blood, Capillary BLOOD SPECIMEN / Unknown 10/22/2022 5:39 AM CDT 10/22/2022 5:45 AM CDT Braden Ballard MD LAB - BEAKER POCT [facility] LABORATORY [facility] [address] [facility] (1st floor, no room number) [place] [address], [facility] [phone] * EKG CARDIAC - HIM SCAN (10/20/2022 12:00 AM CDT) 10/20/2022 Provider Outside ECG ORDERABLES * EKG CARDIAC - HIM SCAN (07/08/2022 12:00 AM PARTITION NOTCHER) 07/08/2022 Provider Outside ECG ORDERABLES documented in this encounter Visit Diagnoses Diagnosis S/P lumbar microdiscectomy- Primary Other postprocedural status Lower extremity weakness Other musculoskeletal symptoms referable to limbs Herniation of lumbar intervertebral disc with radiculopathy Intervertebral lumbar disc disorder with myelopathy, lumbar region documented in this encounter Administered Medications Inactive Administered Medications - up to 3 most recent administrations Medication Order MAR Action Action Date Dose Rate Site bupivacaine 0.5 % - EPINEPHrine 1:200,000 injection PRN, Starting on Sonam 10/22/22 at 0919, Intra-procedure $Given 10/22/2022 9:19 AM CDT 30 mLs Operative Site/Surgical Site ceFAZolin 1000 mg + gentamicin 120 mg + NaCl 0.9% 1000 mL Bottle PRN, Starting on Sonam 10/22/22 at 0931, Intra-procedure $Given 10/22/2022 9:31 AM CDT 1,200 mLs Operative Site/Surgical Site methocarbamol (ROBAXIN) tablet 750 mg 750 mg, Oral, ONCE, On Sonam 10/22/22 at 1200, For 1 dose $Given 10/22/2022 12:10 PM CDT 750 mg oxyCODONE (ROXICODONE) tablet 5 mg 5 mg, Oral, ONCE, On Sonam 10/22/22 at 1200, For 1 dose $Given 10/22/2022 12:10 PM CDT 5 mg thrombin 5000 units vial PRN, Starting on Sonam 10/22/22 at 0930, Intra-procedure $Given 10/22/2022 9:30 AM CDT 10,000 Units Operative Site/Surgical Site documented in this encounter Active and Recently Administered Medications Times are shown in CDT. Scheduled Medication Order 10/20/2022 10/21/2022 10/22/2022 ceFAZolin 2000 mg, gentamicin 240 mg in 0.9% NaCl 2000 mL irrigation Irrigation, ONCE, On Sonam 10/22/22 at 0730, For 1 dose 0730 (Canceled Entry - Provider: Orders Generic Provider - Comment: Automatically canceled at discontinue of medication order) ceFAZolin Sodium (ANCEF) injection 3 g (COMPLETED) Routine, 3 g, Intravenous, PRE-OP/PRE-PROCEDURE, Starting on Sonam 10/22/22 at 0555, For 1 dose, Give first dose within 1 hour PRIOR to incision. If patient weight is greater than or equal to 120 kg increase dose to 3 g., Indications: Perioperative Pharmacoprophylaxis, Pre-procedure 0725 ($Given - Provi leonora: Yaquelin Bojorquez APRN CRNA) methocarbamol (ROBAXIN) tablet 750 mg (COMPLETED) 750 mg, Oral, ONCE, On Sonam 10/22/22 at 1200, For 1 dose 1210 ($Given - Provi leonora: Felisha Trevino RN) oxyCODONE (ROXICODONE) tablet 5 mg (COMPLETED) 5 mg, Oral, ONCE, On Sonam 10/22/22 at 1200, For 1 dose 1210 ($Given - Provi leonora: Felisha Trevino RN) PRN Medication Order 10/20/2022 10/21/2022 10/22/2022 bupivacaine 0.5 % - EPINEPHrine 1:200,000 injection (CANCELED) PRN, Starting on Sonam 10/22/22 at 0919, Intra-procedure 0919 ($Given - Provi leonora: Braden Ballard MD) ceFAZolin 1000 mg + gentamicin 120 mg + NaCl 0.9% 1000 mL Bottle (CANCELED) PRN, Starting on Sonam 10/22/22 at 0931, Intra-procedure 0931 ($Given - Provi leonora: Braden Ballard MD) thrombin 5000 units vial (CANCELED) PRN, Starting on Sonam 10/22/22 at 0930, Intra-procedure 0930 ($Given - Provi leonora: Braden Ballard MD) documented in this encounter Care Teams Java Xml Developer Relationship Specialty Start Date End Date Anders Mirza MD [facility] [address] [place] [address] PCP - General Emergency Medicine 10/16/22 documented as of this encounter
--- OUTSIDE RECORDS SUMMARY | 2023-07-07 13:19 | XMS_ITS | Encounter Summary ---
Author Name Unknown Organization [place] Address Critical access hospital0 [facility] [place] [address] Care Team Providers Care Post Doc Fellowship Name Role Phone Anders Mirza MD Primary Care Provider Reason for Visit * Auth/Cert (Routine) Specialty Diagnoses / Procedures Referred By Contac t Referred To Contact Surgery Diagnoses Lower extremity weakness Herniation of lumbar intervertebral disc with radiculopathy Lower extremity weakness [R29.898] Herniation of lumbar intervertebral disc with radiculopathy [M51.16] Procedures LA PERC LAMINO-/LAMINECTOMY INDIR IMAG GUIDE LUMBAR LA LAMNOTMY INCL W/DCMPRSN NRV ROOT 1 INTRSPC LUMBR Left Lumbar 2 to Lumbar 3 Minimally Invasive Microdiscectomy Periop Services [address] [place] [address] Referral ID Status Reason Start Date Expiration Date Visits Re quested Visits Authorized [id number] 1 1 Encounter Details Date Type Department Care Team (Late st Contact Info) Description 10/22/2022 7:26 AM CDT Anesthesia Event [facility] PeriOp Services [address] [place] [address] Christ Islas MD [facility] [place] ANESTHESIA [id number] [place] [address] Anesthesia Record Procedure Summary Procedure Name Responsible Anesthesiologist Anesthesia Start Time Anesthesia Stop Time Minimally invasive left L2-3 microdiscectomy with use of MetRx (Left: Spine) Christ Islas MD 10/22/22 0710/22/22 0944 Events Date Time Event Comment 10/22/2022 0726 An Start 0726 An Start Data 07 AN REASSESS I attest that I have identified and re-evaluated the patient immediately before the induction of anesthesia and I am satisfied that the anesthetic plan is suitable for the patient's condition and procedure. The first vital signs recorded are pre- induction. Yaquelin Bojorquez APRN ROAD SIGN INSTALLER 07 An Induction 07 MD Present 0730 MD Present 0732 An Intubation 0736 MD Present 0810 MD Present 0915 Present 09 AN Extubation All extubation criteria met prior to removal. 937 an stop data 0943 Present 0944 An Stop Electronically signed by Yaquelin Bojorquez APRN ROAD SIGN INSTALLER on October 22, 2022 9:44 AM Meds Name Total midazolam 1 mg/mL 2 mg fentaNYL 50 mcg/mL 100 mcg HYDROmorphone 1 mg/mL 2 mg lidocaine 2% 50 mg propofol 10 mg/mL 200 mg ketamine 10 mg/mL 50 mg rocuronium 10 mg/mL 60 mg phenylephrine (DENIS-SYNEPHRINE) injection 600 mcg dexamethasone (DECADRON) 4 mg/mL 8 mg ondansetron 2 mg/mL 4 mg glycopyrrolate 0.2 mg/mL 0.8 mg neostigmine 1 mg/mL 5 mg ceFAZolin Sodium (ANCEF) injection 3 g 3 g vasopressin 1 unit/mL 4 Units phenylephrine 0.1 mg/mL infusion (mcg/kg /min) 1.16 mg LR 1,000 mL * Agents Name NO HELIOX O2 N2O Air Exp Sevoflurane Exp Isoflurane Exp Desflurane Exp N2O Ins Sevoflurane Ins Isoflurane Ins Desflurane O2 Auxiliary * Blood No blood administrations on file. Lines, Drains, and Airways Type Details Placement Removal Incision/Surgical Site 10/22/22; 0800; B ack; dermabond, [place] 10/22/22 0800 by Latisha Patricio, DEMI Peripheral IV 10/22/22; 0627; 20 G ; Left, Posterior; Hand; Chlorhexidine; Tolerated well 10/22/22 06 by Jodi Howe RN 10/22/22 1232 by Felisha Trevino RN ETT Placement Date: 10/22/22; Placement Time: 731 (created via procedure documentation); Mask Ventilation: 2; Induction Type: Intravenous; Ease of Intubation: Easy; Technique: Direct laryngoscopy; ETT Type: Single; Tube Size: 8 mm; DL Blade Size: Espinoza 2; Grade View: 1; Adjucts: Stylet; Placement Person: ROAD SIGN INSTALLER; Attempts: 1 10/22/22 0732 by Yaquelin Bojorquez APRN ROAD SIGN INSTALLER 10/22/22 0938 by Yaquelin Bojorquez APRN ROAD SIGN INSTALLER documented in this encounter Social History Tobacco Use Types Packs/Day Years Used Date Smoking Tobacco: Never Smokeless Tobacco: Never Alcohol Use Standard Drinks/Week Comments Not Currently [...] AM CDT documented as of this encounter OR Notes * Anesthesia Postprocedure Evaluation - Christ Islas MD - 10/22/2022 12:38 PM CDT Patient: Darius Gonzalez Procedure: Procedure(s): Left Lumbar 2 to Lumbar 3 Minimally Invasive Microdiscectomy Anesthesia Type: General Note: Disposition: Inpatient Postop Pain Control: Uneventful Sign Out: Well controlled pain PONV: No Neuro/Psych: Uneventful Sign Out: Acceptable/Baseline neuro status Airway/Respiratory: Uneventful Sign Out: Acceptable/Baseline resp. status CV/Hemodynamics: Uneventful Sign Out: Acceptable CV status; No obvious hypovolemia; No obvious fluid overload Other NRE: NONE DID A NON-ROUTINE EVENT OCCUR? No Last vitals: Vitals Value Taken Time BP 123/73 10/22/22 1050 Temp 97.1 ??F (36.2 ??C) 10/22/22 1045 Pulse 87 10/22/22 1054 Resp 12 10/22/22 1054 SpO2 97 % 10/22/22 1055 Vitals shown include unvalidated device data. Electronically Signed By: Christ Islas MD October 22, 2022 12:38 PM * Anesthesia Procedure Notes - Yaquelin Bojorquez APRN CRNA - 10/22/2022 7:48 AM CDT Associated Order(s): Airway Airway Patient location during procedure: OR Procedure Start/Stop Times: 10/22/2022 7:32 AM Staff - Performed By: ROAD SIGN INSTALLER Consent for Airway Urgency: elective Indications and Patient Condition Indications for airway management: david-procedural Induction type:intravenous Mask difficulty assessment: 2 - vent by mask + OA or adjuvant +/- NMBA Final Airway Details Final airway type: endotracheal airway Successful airway: ETT - single Endotracheal Airway Details ETT size (mm): 8.0 Cuffed: yes Successful intubation technique: direct laryngoscopy DL Blade Type: Espinoza 2 Grade View of Cords: 1 Adjucts: stylet Position: Right Measured from: gums/teeth Bite block used: Soft Post intubation assessment Placement verified by: capnometry and equal breath sounds Number of attempts at approach: 1 Secured with: plastic tape Ease of procedure: easy Dentition: Intact Medication(s) Administered Medication Administration Time: 10/22/2022 7:32 AM * Anesthesia Preprocedure Evaluation - Christ Islas MD - 10/22/2022 6:30 AM CDT Anesthesia Pre-Procedure Evaluation Patient: Darius Gonzalez : 1955 Procedure : Procedure(s): Left Lumbar 2 to Lumbar 3 Minimally Invasive Microdiscectomy Past Medical History: Diagnosis Date ??? Anemia ??? Arthritis osteoarthritis ??? Diabetes (H) type 2 ??? Gastroesophageal reflux disease ??? Hypertension ??? Obese Past Surgical History: Procedure Laterality Date ??? COLONOSCOPY ??? ORTHOPEDIC SURGERY Right TKA 2021, Left TKA 2022 No Known Allergies Social History Tobacco Use ??? Smoking status: Never ??? Smokeless tobacco: Never Vaping Use ??? Vaping status: Not on file Substance Use Topics ??? Alcohol use: Not Currently Wt Readings from Last 1 Encounters: 10/22/22 129.1 kg (284 lb 9.6 oz) Anesthesia Evaluation ROS/MED HX ENT/Pulmonary: (+) NILSON risk factors, hypertension, obese, (-) sleep apnea Neurologic: (+) peripheral neuropathy, - Lower ext weakness. Cardiovascular: (+) Dyslipidemia hypertension-----Previous cardiac testing Echo: Date: Results: Stress Test: Date: Results: ECG Reviewed: Date: 10/20 Results: NSR Cath: Date: Results: (-) CAD, CHF, arrhythmias and valvular problems/murmurs METS/Exercise Tolerance: Hematologic: (-) anemia Musculoskeletal: Comment: Spinal stenosis GI/Hepatic: (+) GERD, (-) hepatitis Renal/Genitourinary: Endo: (+) type II DM, Not using insulin, - not using insulin pump. not previously admitted for DM/DKA. Obesity, Psychiatric/Substance Use: - neg psychiatric ROS Infectious Disease: - neg infectious disease ROS Malignancy: Other: Physical Exam Airway Mallampati: II TM distance: > 3 FB Neck ROM: full Mouth opening: > 3 cm Respiratory Devices and Support Dental Cardiovascular cardiovascular exam normal Pulmonary pulmonary exam normal Other findings: No lab results found. ECG - SB, no acute changes Lab Test 10/22/22 0539 GLC 135* OUTSIDE LABS: CBC: No results found for: WBC, HGB, HCT, PLT BMP: Lab Results Component Value Date GLC 135 (H) 10/22/2022 COAGS: No results found for: PTT, INR, FIBR POC: No results found for: BGM, HCG, HCGS HEPATIC: No results found for: ALBUMIN, PROTTOTAL, ALT, AST, GGT, ALKPHOS, BILITOTAL, BILIDIRECT, HUSEYIN OTHER: No results found for: PH, LACT, A1C, SCOTT, PHOS, MAG, LIPASE, AMYLASE, TSH, T4, T3, CRP, SED Anesthesia Plan ASA Status: 3 Anesthesia Type: General. - Airway: ETT Induction: Propofol. Maintenance: Balanced. Consents Anesthesia Plan(s) and associated risks, benefits, and realistic alternatives discussed. Questions answered and patient/retail customer service representative(s) expressed understanding. - Discussed: Risks, Benefits and Alternatives for the PROCEDURE were discussed - Discussed with: Patient - Extended Intubation/Ventilatory Support Discussed: No. - Patient is DNR/DNI Status: No Use of blood products discussed: No . Postoperative Care Pain management: IV analgesics, Oral pain medications. PONV prophylaxis: Ondansetron (or other 5HT-3), Background Propofol Infusion Comments: Christ Islas MD documented in this encounter Miscellaneous Notes * Anesthesia Care Transfer Note - Yaquelin Bojorquez APRN CRNA - 10/22/2022 9:43 AM CDT Patient: Darius Gonzalez Procedure: Procedure(s): Left Lumbar 2 to Lumbar 3 Minimally Invasive Microdiscectomy Diagnosis: Lower extremity weakness [R29.898] Herniation of lumbar intervertebral disc with radiculopathy [M51.16] Diagnosis Additional Information: No value filed. Anesthesia Type: General Note: Oropharynx: oral airway in place Level of Consciousness: drowsy Oxygen Supplementation: face mask Independent Airway: airway patency satisfactory and stable Dentition: dentition unchanged Vital Signs Stable: post-procedure vital signs reviewed and stable Report to RN Given: handoff report given Patient transferred to: PACU Handoff Report: Identifed the Patient, Identified the Reponsible Provider, Reviewed the pertinent medical history, Discussed the surgical course, Reviewed Intra-OP anesthesia mangement and issues during anesthesia, Set expectations for post-procedure period and Allowed opportunity for questions andacknowledgement of understanding Vitals: Vitals Value Taken Time BP 129/72 10/22/22 0940 Temp Pulse 85 10/22/22 0941 Resp 50 10/22/22 0942 SpO2 97 % 10/22/22 0942 Vitals shown include unvalidated device data. Electronically Signed By: Yaquelin Bojorquez APRN CRNA October 22, 2022 9:43 AM documented in this encounter Plan of Treatment Not on file documented as of this encounter Procedures Procedure Name Priority Date/Time Associated Diagnosis Comments ANE AIRWAY ETT PERFORMABLE Routine 10/22/2022 7:32 AM CDT documented in this encounter Results * ANE AIRWAY ETT PERFORMABLE (10/22/2022 7:32 AM CDT) Narrative Yaquelin Bojorquez APRN ROAD SIGN INSTALLER - 10/22/2022 7:32 AM CDT Yaquelin Bojorquez APRN ROAD SIGN INSTALLER ? 10/22/2022 ??7:49 AM Airway ? Patient location during procedure: OR ? Procedure Start/Stop Times: 10/22/2022 7:32 AM Staff - ? Performed By: ROAD SIGN INSTALLER Consent for Airway ? Urgency: elective Indications and Patient Condition ? Indications for airway management: david-procedural ? Induction type:intravenous ? Mask difficulty assessment: 2 - vent by mask + OA or adjuvant +/- NMBA Final Airway Details ? Final airway type: endotracheal airway ? Successful airway: ETT - single Endotracheal Airway Details ? ETT size (mm): 8.0 ? Cuffed: yes ? Successful intubation technique: direct laryngoscopy ? DL Blade Type: Espinoza 2 ? Grade View of Cords: 1 ? Adjucts: stylet ? Position: Right ? Measured from: gums/teeth ? Bite block used: Soft Post intubation assessment ? Placement verified by: capnometry and equal breath sounds ? Number of attempts at approach: 1 ? Secured with: plastic tape ? Ease of procedure: easy ? Dentition: Intact Medication(s) Administered Medication Administration Time: 10/22/2022 7:32 AM Christ Islas MD [facility] documented in this encounter Visit Diagnoses Not on filedocumented in this encounter Administered Medications Inactive Administered Medications - up to 3 most recent administrations Medication Order MAR Action Action Date Dose Rate Site ceFAZolin Sodium (ANCEF) injection 3 g Routine, 3 g, Intravenous, PRE-OP/PRE-PROCEDURE, Starting on Sonam 10/22/22 at 0555, For 1 dose, Give first dose within 1 hour PRIOR to incision. If patient weight is greater than or equal to 120 kg increase dose to 3 g., Indications: Perioperative Pharmacoprophylaxis, Pre-procedure $Given 10/22/2022 7:25 AM CDT 3 g dexamethasone (DECADRON) injection Intravenous, PRN, Administer over 1 Minutes, Starting on Sonam 10/22/22 at 0748, Anesthesia Intra-op $Given 10/22/2022 7:48 AM CDT 8 mg fentaNYL (PF) (SUBLIMAZE) injection Intravenous, PRN, Administer over 3-5 Minutes, Starting on Sonam 10/22/22 at 0727, Anesthesia Intra-op $Given 10/22/2022 7:27 AM CDT 100 mcg glycopyrrolate (ROBINUL) injection Intravenous, PRN, Administer over 1-2 Minutes, Starting on Sonam 10/22/22 at 0920, Anesthesia Intra-op $Given 10/22/2022 9:20 AM CDT 0.8 mg HYDROmorphone (DILAUDID) injection Intravenous, PRN, Starting on Sonam 10/22/22 at 0747, Anesthesia Intra-op $Given 10/22/2022 9:24 AM CDT 1 mg $Given 10/22/2022 7:47 AM CDT 1 mg ketamine (KETALAR) injection Intravenous, PRN, Administer over 2-5 Minutes, Starting on Sonam 10/22/22 at 0834, Anesthesia Intra-op $Given 10/22/2022 9:06 AM CDT 30 mg $Given 10/22/2022 8:34 AM CDT 20 mg lactated ringers infusion Intravenous, CONTINUOUS PRN, Anesthesia Intra-op, Starting on Sonam 10/22/22 at 0726, Until Sonam 10/22/22 at 0944 $New Bag 10/22/2022 9:17 AM CDT $New Bag 10/22/2022 7:26 AM CDT lidocaine 2% injection (MDV) Intravenous, PRN, Starting on Sonam 10/22/22 at 0727, Anesthesia Intra-op $Given 10/22/2022 7:27 AM CDT 50 mg midazolam (VERSED) injection Intravenous, Administer over 2 Minutes, PRN, Starting on Sonam 10/22/22 at 0726, Anesthesia Intra-op $Given 10/22/2022 7:26 AM CDT 2 mg neostigmine (PROSTIGMINE) injection Intravenous, PRN, Starting on Sonam 10/22/22 at 0920, Anesthesia Intra-op $Given 10/22/2022 9:20 AM CDT 5 mg ondansetron (ZOFRAN) injection Intravenous, PRN, Administer over 2-5 Minutes, Starting on Sonam 10/22/22 at 0910, Anesthesia Intra-op $Given 10/22/2022 9:10 AM CDT 4 mg phenylephrine (DENIS-SYNEPHRINE) injection Intravenous, CONTINUOUS PRN, Starting on Sonam 10/22/22 at 0804, Anesthesia Intra-op $Bolus 10/22/2022 9:28 AM CDT 100 mcg $Bolus 10/22/2022 8:49 AM CDT 200 mcg $Bolus 10/22/2022 8:29 AM CDT 100 mcg phenylephrine 0.1 mg/mL infusion (mcg/kg/min) Intravenous, CONTINUOUS PRN, Starting on Sonam 10/22/22 at 0851, Anesthesia Intra-op Rate/Dose Change 10/22/2022 9:05 AM CDT 0.2 mcg/kg/min 15.492 mL/hr $New Bag 10/22/2022 8:51 AM CDT 0.3 mcg/kg/min 23.238 mL /hr propofol (DIPRIVAN) injection 10 mg/mL vial Intravenous, PRN, Starting on Sonam 10/22/22 at 0727, Anesthesia Intra-op $Given 10/22/2022 7:27 AM CDT 200 mg rocuronium injection Intravenous, PRN, Starting on Sonam 10/22/22 at 0727, Anesthesia Intra-op $Given 10/22/2022 8:05 AM CDT 10 mg $Given 10/22/2022 7:27 AM CDT 50 mg vasopressin 1 unit/mL syringe Intravenous, PRN, Starting on Sonam 10/22/22 at 0815, Anesthesia Intra-op $Given 10/22/2022 8:31 AM CDT 2 Units $Given 10/22/2022 8:15 AM CDT 2 Units documented in this encounter Care Teams Post Doc Fellowship Relationship Specialty Start Date End Date Anders Mirza MD [facility] [address] [place] [address] PCP - General Emergency Medicine 10/16/22 documented as of this encounter
--- OUTSIDE RECORDS SUMMARY | 2023-07-07 13:19 | XMS_ITS | Encounter Summary ---
Author Name Unknown Organization [place] Address [address] [place] [address]. [place] [address] Care Team Providers Care Care Professionals Name Role Phone Anders Mirza MD Primary Care Provider Encounter Details Date Type Department Care Team (Latest Contact Info) Description 10/16/2022 Travel Social History Tobacco Use Types Packs/Day Years [...] suspected to have Coronavirus/COVID-19? No / Unsure 10/16/2022 11:55 AM CDT documented as of this encounter Plan of Treatment Not on file documented as of this encounter Visit Diagnoses Not on filedocumented in this encounter Care Teams Care Professionals Relationship Specialty Start Date End Date Anders Mirza MD [facility] [address] [place] [address] PCP - General Emergency Medicine 10/16/22 documented as of this encounter
--- OUTSIDE RECORDS SUMMARY | 2023-07-07 13:19 | XMS_ITS | Referral Summary ---
Author Name Unknown Organization [place] Address [address] [place] [address]. [place] [address] Care Team Providers Care Industrial Tractor Driver Name Role Phone Anders Mirza MD Primary Care Provider Allergies No known active allergies Medications Medication Sig Dispensed Refills Start Date End Date Status lisinopril (ZESTRIL) 40 MG tablet Take 40 mg by mouth daily 0 Active acetaminophen (TYLENOL) 500 MG tablet Take 500-1,000 mg by mouth every 6 hours as needed for mild pain 0 Active amLODIPine (NORVASC) 10 MG tablet Take 10 mg by mouth daily 0 Active atenolol (TENORMIN) 100 MG tablet Take 100 mg by mouth daily 0 Active atorvastatin (LIPITOR) 10 MG tablet Take 10 mg by mouth daily 0 Active metFORMIN (GLUCOPHAGE) 500 MG tablet Take 1,000 mg by mouth 2 times daily (with meals) 0 Active pantoprazole (PROTONIX) 20 MG EC tablet Take 20 mg by mouth daily 0 Active oxyCODONE (ROXICODONE) 5 MG tabletIndications:S/P lumbar microdiscectomy Take 1-2 tablets (5-10 mg) by mouth every 6 hours as needed for pain 20 tablet 0 10/22/2022 Active methocarbamol (ROBAXIN) 750 MG tabletIndications:S/P lumbar microdiscectomy Take 1 tablet (750 mg) by mouth 4 times daily as needed for muscle spasms 60 tablet 0 10/22/2022 Active Social History Tobacco Use Types Packs/Day Years Used Date Smoking Tobacco: Never Smokeless Tobacco: Never Tobacco Cessation:Counseling Given: Not Answered Alcohol Use Standard Drinks/Week Comments Not Currently 0 (1 standard drink = 0.6 oz pur e alcohol) Adolescent Education Answer Date Record ed Getting School Help Needed Not on file 03/14 Sex and Gender Information Value Date Recorded Sex Assigned at Not on file Gender Identity Not on file Sexual Orientation Not on file Last Filed Vital Signs Vital Sign Reading Time Taken Comments Blood Pressure 130/80 10/22/2022 12:28 PM CDT Pulse 86 10/22/2022 12:28 PM CDT Temperature 36.5 ??C (97.7 ??F) 10/22/2022 1 2:26 PM CDT Respiratory Rate 16 10/22/2022 11:1 9 AM CDT Oxygen Saturation 97% 10/22/2022 12: 28 PM CDT Inhaled Oxygen Concentration - - Weight 129.1 kg (284 lb 9.6 oz) 10/22/2022 5:41 AM CDT Height 172.7 cm (5' 7.99) 10/22/2022 5:41 AM CD T Body Mass Index 43.28 10/22/2022 5:41 AM CDT Plan of Treatment Not on file Care Teams Industrial Tractor Driver Relationship Specialty Start Date End Date Anders Mirza MD [facility] [address] [place] [address] PCP - General Emergency Medicine 10/16/22
--- OUTSIDE RECORDS SUMMARY | 2023-07-07 13:19 | XMS_ITS | Clinical Summary ---
Author Name Unknown Organization [place] Address [address] [place] [address]. [place] [address] Care Team Providers Care Penal Officer Name Role Phone Anders Mirza MD Primary [...] 10/22/2022 5:41 AM CDT Plan of Treatment Health Maintenance Due Date Last Done Comments ADVANCE CARE PLANNING 1955 ANNUAL REVIEW OF HM ORDERS 1955 CT COLONOGRAPHY 1955 FIT 1955 FLEX SIG 1955 LIPID 1955 sDNA (Cologuard) 1955 COVID-19 Vaccine (#1) 03/31/1954 COLONOSCOPY 09/29/1963 COLORECTAL CANCER SCREENING 09/29/1963 HEPATITIS C SCREENING 09/29/1971 ZOSTER IMMUNIZATION (1 of 2) 09/29/2003 RSV VACCINE ( & 60+ ) (1 - 1-dose 60+ series) 2013 FALL RISK ASSESSMENT 2018 MEDICARE ANNUAL WELLNESS VISIT 2018 Pneumococcal Vaccine: 65+ Years (2 of 2 - PCV) 2018 10/15/2010 DTAP/TDAP/TD IMMUNIZATION (2 - Td or Tdap) 10/15/2020 10/15/2010, 05/31/2005 INFLUENZA VACCINE (#1) 2023 PHQ-2 (once per calendar year) 2023 GLUCOSE 10/22/2025 10/22/2022, 10/22/2022 HPV IMMUNIZATION Aged Out No longer e ligible based on patient's age to complete this topic IPV IMMUNIZATION Aged Out No longer e ligible based on patient's age to complete this topic MENINGITIS IMMUNIZATION Aged Out No l onger eligible based on patient's age to complete this topic RSV MONOCLONAL ANTIBODY Aged Out No l onger eligible based on patient's age to complete this topic Care Teams Penal Officer Relationship Specialty Start Date End Date Anders Mirza MD [facility] [address] [place] [address] PCP - General Emergency Medicine 10/16/22
--- OUTSIDE RECORDS SUMMARY | 2023-07-07 13:19 | XMS_ITS | Encounter Summary ---
Author Name Unknown Organization [facility] Address [address] [place] [address]. [place] [address] Care Team Providers Care Telemarketing Representative Name Role Phone Anders Mirza MD Primary Care Provider Encounter Details Date Type Department Care Team (Latest Contact Info) Description 10/22/2022 Travel Social History Tobacco Use Types Packs/Day [...] on filedocumented in this encounter Care Teams Telemarketing Representative Relationship Specialty Start Date End Date Anders Mirza MD [facility] [address] [place] [address] PCP - General Emergency Medicine 10/16/22 documented as of this encounter
--- OUTSIDE RECORDS SUMMARY | 2023-07-07 13:19 | XMS_ITS | Encounter Summary ---
Author Name Unknown Organization [facility] Address [address] [place] [address]. [place] [address] Care Team Providers Care Transit Man Name Role Phone Anders Mirza MD Primary Care Provider Reason for Visit * Auth/Cert (Routine) Specialty Diagnoses / Procedures Referred By Contac t Referred To Contact Surgery Diagnoses Lower extremity weakness Herniation of lumbar intervertebral disc with radiculopathy Lower extremity weakness [R29.898] Herniation of lumbar intervertebral disc with radiculopathy [M51.16] Procedures SC PERC LAMINO-/LAMINECTOMY INDIR IMAG GUIDE LUMBAR SC LAMNOTMY INCL W/DCMPRSN NRV ROOT 1 INTRSPC LUMBR Left Lumbar 2 to Lumbar 3 Minimally Invasive Microdiscectomy [facility] [address] [place] [address] Referral ID Status Reason Start Date Expiration Date Visits Re quested Visits Authorized [id number] 1 1 Encounter Details Date Type Department Care Team (Latest Contact Info) Description 10/22/2022 5:11 AM CDT - 10/22/2022 12:37 PM CDT Hospital Encounter [facility] PreOP/PostOP [address] [place] [address] Braden Ballard MD [facility] [address] [place], [place] [id number] S/P lumbar microdiscectomy (Primary Dx) Discharge Disposition: Home or Self Care Social History Tobacco Use Types Packs/Day Years [...] encounter Discharge Instructions * Discharge Instructions* Alejandrina Gomez RN - 10/22/2022 9:[address] BRADEN BALLARD M.D. CLINIC PHONE NUMBER: [phone] GENERAL ANESTHESIA OR SEDATION ADULT DISCHARGE INSTRUCTIONS [...] DRINK CLEAR LIQUIDS (APPLE JUICE, LUIS ANTONIO LA, 7-UP, BROTH, ETC.). PROGRESS TO YOUR REGULAR [...] microscope SURGEON: Braden Ballard MD, MS, [employer] DESIGNER: Kal Leong SA INDICATION FOR PROCEDURE: The [...] [facility] and received general endotracheal anesthesia. The patient [...] patient was then transported back to the stretcher, extubated, and sent to recovery. At the [...] CARDIAC - HIM SCAN 07/08/2022 12:00 AM REPAIR MANAGER documented in this encounter Results * XR Surgery VARGHESE Fluoro Less Than 5 Min w Stills (10/22/2022 9:59 AM CDT) Narrative RADIANT - 10/22/2022 10:00 AM CDT This exam was marked as non-reportable because it will not be read by a radiologist or a [facility] non-radiologist provider. Braden Ballard MD IM DIAGNOST IC IMAGING ORDERABLES RADIANT * (ABNORMAL) Glucose by meter (10/22/2022 9:45 AM CDT) GLUCOSE BY METER POCT 171(H) 70 - 99 mg/dL 10/22/2022 9:52 AM CDT LABORATORY POC Blood, Capillary BLOOD SPECIMEN / Unknown 10/22/2022 9:45 AM CDT 10/22/2022 9:52 AM CDT Braden Ballard MD LAB - [facility] POCT LABORATORY [facility] Acute [facility] Lab [address] Lab (1st floor, no room number) [place] [address], [facility] [phone] * (ABNORMAL) Glucose by meter (10/22/2022 5:39 AM CDT) GLUCOSE BY METER POCT 135(H) 70 - 99 mg/dL 10/22/2022 5:45 AM CDT RH LABORATORY POC Blood, Capillary BLOOD SPECIMEN / Unknown 10/22/2022 5:39 AM CDT 10/22/2022 5:45 AM CDT Braden Ballard MD LAB - [facility] POCT RH LABORATORY POC [facility] Acute Care Lab [address] Lab (1st floor, no room number) [place] [address], [facility] [phone] * EKG CARDIAC - HIM SCAN (10/20/2022 12:00 AM CDT) 10/20/2022 Provider Outside ECG ORDERABLES * EKG CARDIAC - HIM SCAN (07/08/2022 12:00 AM REPAIR MANAGER) 07/08/2022 Provider Outside ECG ORDERABLES documented in this encounter Visit Diagnoses Diagnosis S/P lumbar microdiscectomy- Primary Other postprocedural status documented in this encounter Administered Medications Inactive Administered Medications - up to 3 most recent administrations Medication Order MAR Action Action Date Dose Rate Site methocarbamol (ROBAXIN) tablet 750 mg 750 mg, Oral, ONCE, On Sonam 10/22/22 at 1200, For 1 dose $Given 10/22/2022 12:10 PM CDT 750 mg oxyCODONE (ROXICODONE) tablet 5 mg 5 mg, Oral, ONCE, On Sonam 10/22/22 at 1200, For 1 dose $Given 10/22/2022 12:10 PM CDT 5 mg documented in this encounter Active and Recently [...] MD) documented in this encounter Care Teams Transit Man Relationship Specialty Start Date End Date Anders Mirza MD [facility] [address] [place] [address] PCP - General Emergency Medicine 10/16/22 documented as of this encounter
--- OUTSIDE RECORDS SUMMARY | 2023-07-07 13:20 | XMS_ITS | Data Portability ---
Author Name Unknown Address [address] [place] [address] Phone [phone] Organization [facility], [facility] Address [address] [place] [address] Assessment Encounter Date Assessment Date Assessment LastModified by Organization Details LastModified Time 03/11/2022 03/11/2022 66M with 5 mm right ureteral stone. Symptoms improving overall from his visit at [facility] last week, but still some intermittent RLQ/right flank discomfort. Not using strainer and has not seen stone pass. Discussed medical expulsive therapy versus surgical intervention including options of ESWL, URS/HLL/stent, and their respective risks/complicat ions including including but not limited to post-procedure pain or stent pain, infection/UTI/s epsis, hematuria, anesthesia reaction, injury to adjacent structures, and possible need for additional/stag ed procedure. He prefers to proceed with trial of MET at this time. 1. 5 mm right ureteral stone. - reviewed outside CT scan from [facility] - no concern for infx based on UA today and no infectious symptoms - discussed medical expulsive therapy versus surgical intervention - continue tamsulosin next 3-4 weeks - continue PRN pain meds - recommend strain urine at home, bring stone for analysis if passed - pt to call if he is not improving and wanting to move forward with procedure - return precautions for ER discussed-- worsening pain, fever/chills, N/V, other concerns - f/u in 3-[address] stone protocol if stone has not passed [id number] Not available 03/11/2022 15:48:57 Plan of Treatment Reminders Order Date Submit Date Provider Last Modified By Organization Details Last Modified Time Details Appointments None recorded. Lab urinalysis , dipstick 2021 022 [email or web address] [facility], [address], [place], [address], 15:02:51 Referral None recorded. Procedures None recorded. Surgeries None recorded. Imaging None recorded. Medication Orders None recorded. Patient TargetsNo targets recorded. Patient InstructionsNo instructions recorded. Reason for Referral None Reported. Results Created Date Observation Date Name Description Value Unit Range Abnormal Flag LastModifiedBy Organization Detail LastModifiedTime 03/11/2003/11/2022 urina lysis , dipst ick pH-Status 5.5 Not Available [facility] [address], [place], [address], 03/11/2022 14:53:11 03/11/20 22 03/11/2022 urina lysis , dipst ick Blood-Status Small Not Available [facility] [address], [place], [address], 03/11/2022 14:53:11 03/09/20 22 03/05/2022 CT, abdom en + pelvi s, w/o contr ast No observ ation record ed. Not Available 03/09/2022 11:58:01 Result Notes None recorded. Procedures Surgical History Date Name Laterality Status Provider Name and Address Organization Details Recorded Time total knee replacement completed Shelley Carpio [facility] 03/11/2022 15:00:35 Imaging Results Imaging Date Name Status LastModified by Organiz ation Details LastModified Time 03/05/2022 CT, abdomen + pelvis, w/o contrast completed Information not available 03/09/2022 11:58:01 Procedure Notes None recorded. Medical Equipment None Reported. Allergies No known drug allergies Medications Name Sig Start Date Stop Date Status Note LastModified by Organization Details LastModified Time amoxicillin 500 mg capsule TAKE 4 CAPSULES BY MOUTH 1 HOUR PRIOR TO DENTAL APPOINTME NT. active Not Available Not Available No t Available metformin 500 mg tablet TAKE 2 TABLETs BY MOUTH in the morning and take 1 tablet in the evening active Not Available Not Available No t Available atorvastati n 10 mg tablet TAKE ONE TABLET BY MOUTH ONE TIME DAILY AT BEDTIME active Not Available Not Available No t Available atenolol 100 mg tablet TAKE ONE TABLET BY MOUTH ONE TIME DAILY active Not Available Not Available No t Available ketorolac 10 mg tablet take 1 tablet (10 mg) by mouth three times a day As Needed for pain for 5 days; non-narco tic. Safer kidney stone pain medicatio n active Not Available Not Available No t Available pantoprazol e 20 mg tablet,leonel yed release TAKE 1 TABLET BY MOUTH ONCE DAILY FOR GERD active Not Available Not Available No t Available tamsulosin 0.4 mg capsule take 1 capsule (0.4 mg) by mouth once daily to help stone pass, may stop when stone passes active Not Available Not Available No t Available amlodipine 10 mg tablet TAKE ONE TABLET BY MOUTH ONE TIME DAILY active Not Available Not Available No t Available lisinopril 20 mg-hydrochl orothiazide 25 mg tablet TAKE ONE TABLET BY MOUTH ONE TIME DAILY active Not Available Not Available No t Available oxycodone 5 mg tablet take 0.5-1 by mouth every 4-6 hours as needed. do not take more than 6 tablets daily. minimize use. discontin ue as soon as possible. 03/11 completed Not Available Not Available Not Available Vitals Date Recorded Body height Body mass index (BMI) Body weight Provider Name and Address Organization Details Last Updated DateTime 03/11/2022 172.72 cm 45.6 kg/m2 012490.71 g Shelley hoffman [facility] 03/11/2022 14:59:06 Social History Question Answer Notes LastModified by Organizat ion Details LastModified Time Tobacco Smoking Status Never Smoker Shelley hoffman [facility] 03/11/2022 15:01:32 What Is Your Level Of Alcohol Consumption? Occasional Information not available 03/11/2022 What Is Your Level Of Caffeine Consumption? None Information not available 03/11/2022 What Was The Date Of Your Most Recent Tobacco Screening? 03/11/2022 Information not available 03/11/2022 Sex: Male Functional Status None recorded. Mental Status None recorded. Family History Relationship Description Onset Age of this Age Resolved Age Notes Father Family history of pr ostate cancer Father Family history of ca rdiac disorder Medical History Condition Response Other N High Blood Pressure Y Kidney Stones Y Lung Disease N Depression N GERD/Acid Reflux N Sexually Transmitted Infection N Diabetes Y Bleeding Disorder N Cancer N High Cholesterol N Heart Disease N Past Encounters Encounter ID Performer Location Encounter Start Date Encounter Closed Date Diagnosis/Indication [id number] Danii Hughes PA-C [facility] [address] [place] [address] 03/11/2022 14:30:56 03/13/2022 09:49:42 Kidney stone Health Concerns Section Related Observation LastModified by Organization Detai ls LastModified Time None Recorded Concern Status LastModified by Organization Details LastModified Time None Recorded Advance Directives Directive None Recorded Payers Encounter Date Sequence Insurance Name Policy Number Policy Galvez Covered Member ID Galvez Member ID Guarantor Name 03/11/2022 1 [facility] [id number] [facility] [id number] [facility] 03/11/2022 1 [place] [employer] [facility] [id number] [facility] Notes Date Note Type Note Provider Name and Address Organization Details Recorded Time 03/11/2022 text/html HPI Notes: 66M with 5 mm right ureteral stone. Seen in [facility] last week for right flank pain. CT at that time revealed a 5 mm proximal right ureteral stone. Still with some intermittent right flank discomfort. Not taking much for pain medication, does sometimes need pain medicine at night to sleep. Is on 0.4 mg daily tamsulosin since last week. Denies dysuria, gross hematuria, fever, or chills. Was provided with a strainer, but admits he has not been using it. No prior history of stones. UA today trace ketones, small blood, neg nit and neg leuks Labs: no recent labs available from outside records Imaging: (reviewed) 03/05/22 CT A/P: 5 mm proximal right ureteral stone with mild hydro; no other stones (images in [facility]) PMH: HTN, DM PSH: no abdominal surgeries Soc: Occ: Tobacco: EtOH: FHx: father - prostate cancer Danii Hughes PA-C [address] [place] [address],[address], [place], [address], [facility] 03/11/2022 15:49:06
--- OUTSIDE RECORDS SUMMARY | 2023-07-07 13:20 | XMS_ITS | Clinical Summary ---
Author Name Unknown Organization [facility] [employer] [facility] Address [place], [place] [address] Care Team Providers Care Trade Economist Name Role Phone Pcp, No Primary Care Provider Unavailabl e Allergies No known active allergies Medications Medication Sig Dispensed Refills Start Date End Date Status aspirin 81 mg tabletIndications:Type II or unspecified type diabetes mellitus without mention of complication, not stated as uncontrolled Take 1 tablet by mouth once daily with a meal. 1 tablet 0 10/22/2009 Active cholecalciferol (VITAMIN D) 1,000 unit capsule Take 1 capsule by mouth once daily. 0 10/15/2010 Active amLODIPine (NORVASC) 10 mg tablet Take 1 tablet by mouth once daily. 90 tablet 3 09/15/2012 Active atenolol (TENORMIN) 100 mg tablet Take 1 tablet by mouth once daily. 90 tablet 3 09/15/2012 Active lisinopril-hydrochloro thiazide, 20-25 mg, (PRINZIDE, ZESTORETIC) 20-25 mg per tablet Take 1 tablet by mouth once daily. 90 tablet 3 09/15/2012 Active simvastatin (ZOCOR) 20 mg tablet Take 1 tablet by mouth at bedtime. 90 tablet 3 09/15/2012 Active ergocalciferol (VITAMIN D) 50,000 unit capsule Take 1 capsule by mouth once weekly. one po WEEKLY for 8 weeks 8 capsule 0 09/15/2012 Active blood sugar diagnostic (ACCU-CHEK ADVANTAGE TEST) strip Test once daily, and as needed. 100 Each 0 09/15/2012 Active lancets (ACCU-CHEK SOFTCLIX LANCETS) Test once daily, and as needed. 100 Each 0 09/15/2012 Active metFORMIN (GLUCOPHAGE XR) 500 mg Extended-Release tabletIndications:Type II or unspecified type diabetes mellitus without mention of complication, not stated as uncontrolled TAKE 1 TABLET BY MOUTH ONCE DAILY WITH EVENING MEAL. 30 tablet 0 07/10/2014 Active Active Problems Problem Noted Date Diagnosed Date Morbid obesity 10/04/2009 Vitamin D deficiency 10/04/2009 HTN (hypertension) Type II or unspecified type diabetes mellitus without mention of complication, not stated as uncontrolled Immunizations Name Administration Dates Next Due HepA-HepB (Twinrix) 09/15/2012 Pneumococcal Poly,23-Valent (Pneumovax) 10/16/19 11 Td (Age >=7 Years) 05/31/2005 Tdap 10/15/2010 Family History Medical History Relation Name Comments Heart Disease Father Hyperlipidemia Father Hypertension Father Hypertension Mother Thyroid Disease Mother Cancer-colon Neg. 1 Cancer-prostate Neg. 2 Relation Name Status Comments Father Mother Alive Neg. 1 Neg. 2 Social History Tobacco Use Types Packs/Day Years Used Date Smoking Tobacco: Never Alcohol Use Standard Drinks/Week Comments Yes 0 (1 standard drink = 0.6 oz pur e alcohol) rarely Sex and Gender Information Value Date Recorded Sex Assigned at Not on file Gender Identity Not on file Sexual Orientation Not on file Obstetrics History Last Filed [...] (ht and wt on same day) for age 18+ 09/29/1971 Hepatitis C screening for ag e 18-79 09/29/1971 Zoster (shingles) series for age 50+ (1 of 2) 09/29/2003 Colonoscopy through age 75 06/08/2017 06/08/2007 Lipids for age 45-75 09/14/2017 09/14/2012, 07/21/2011, 10/14/2010, Additional history exists Pneumococcal series for age 65+ (2 of 2 - PCV) 2018 10/15/2010 Tetanus booster 10/15/2020 10/15/2010, 05/31/2005 Influenza for age 65+ 01/29/2023 Tdap Completed 10/15/2010 Care Teams Trade Economist Relationship Specialty Start Date End Date Pcp, No . PCP - General 07/10/14
== END 2023-07-05 07:56 | disposition home or self-care (01) ==
LOC: NFLDREF 07-07 13:16
PROVIDERS: PCP Internal Medicine; Referring Provider Internal Medicine; Visit Provider Internal Medicine
DX: D64.9 Anemia, unspecified (principal); E11.9 Type 2 diabetes mellitus without complications; I10 Essential (primary) hypertension; Z79.84 Long term (current) use of oral hypoglycemic drugs; Z12.5 Encounter for screening for malignant neoplasm of prostate
CPT/HCPCS: 80053; 80061; 82043; 82570; G0103

== ENCOUNTER 2023-07-22 10:17 | Day surgery (SDC) | payer MEDICARE, BC, SELFPAY ==
[2023-07-22] VITALS (24 sets, daily range): BP systolic 103–158; BP diastolic 59–80; PULSE 54–83; RESP 12–18; TEMP 35.6–37.1; O2SAT 90–97; BMI 46.7
[2023-07-22] MEDS: ACETAMINOPHEN 500 MG TABLET 1000 MG PO ×3 (10:13→23:47)
[2023-07-22] MEDS: LACTATED RINGERS 1000 ML 1,000 ML 100 ML IV (10:15)
[2023-07-22] MEDS: SODIUM CHLORIDE 0.9 % (FLUSH) 10 ML SYRINGE IVF (10:43)
[2023-07-22] MEDS: OXYCODONE (CR) 10 MG TAB.ER.12H PO (10:43)
[2023-07-22] MEDS: CELECOXIB 200 MG CAPSULE PO (10:43)
[2023-07-22] MEDS: MIDAZOLAM HCL 1 MG/ML inj IVP (11:49)
[2023-07-22] MEDS: fentaNYL 100 MCG/2 ML inj IVP (11:49)
--- NOTE | 2023-07-22 12:00 | SUR.PREOP ---
TIME?OUT:?1148 PT/RN/MDA?VERIFICATION?OF?SURGICAL?SITE Left Shoulder,?PROCEDURE Neve Block,?AND?CONSENT OBTAINED?PRIOR?TO?INVASIVE?PROCEDURE.
[2023-07-22] MEDS: CEFAZOLIN 1 GM inj 3 GM IVP (12:34)
--- NOTE | 2023-07-22 13:42 | P.NB_ITS ---
Nerve Block Nerve Block Time Seen by Provider: 11:52 Date Seen: 07/22/23 Type of block requested by surgeon for post-operative analgesia: supraclavicular Side: left Time out performed: Yes Verification of patient name: Yes Verification of date of : Yes Site marking: site marked Name of person performing procedure: Dominic Continuous monitoring Was continuous monitoring of O2 sat, B/P, appliance servicer, recorded every 15 minutes?: Yes Procedure Checklist: sterile prep, needles and gloves Ultrasound guided. Images saved: Yes Medications given in 5ml increments after negative aspiration: Ropivicaine %: 0.5 mL: 20 Needle gauge: 22 Decadron (mg): 10 Precedex (mcg): 25 Patient tolerated procedure well: Yes Block Charges Block Charge (with Pro Fee): Brachial Plexus Use of Ultrasound Machine for Block: Yes- US Guidance/pain block
--- NOTE | 2023-07-22 13:43 | W.ANESCHARGE ---
Anesthesia Charges Start Date/Time Anesthesia Start Date: 07/22/23 Anesthesia Start Time: 12:06 Stop Date/Time Anesthesia Stop Date: 07/22/23 Anesthesia Stop Time: 15:09
--- NOTE | 2023-07-22 14:20 | XR_ITS ---
Patient: [facility] Facility:?[facility] Patient ID:?[id number] Site Patient ID:?[id number]. Site :?[id number] Study:?XRay-Shoulder Left POST OP-07/22/2023 3:48:31 PM Ordering Physician:TIFFANIE Final Report: INDICATION: Pot operative total shoulder arthroplasty TECHNIQUE: Shoulder radiograph 2 views left COMPARISON: None FINDINGS: Bone: No acute fractures or aggressive bone lesions are identified. Joint: A total shoulder arthroplasty is noted. The acromioclavicular joint has mild osteoarthritis. Soft tissue: Soft tissue gas is present, consistent with recent surgery. The visualized hemithorax and soft tissues are unremarkable in appearance. No radiopaque foreign bodies are seen. IMPRESSION: 1. There is an unremarkable postoperative appearance of the shoulder arthroplasty. Dictated by: Anthony Goode MD @ 07/23/2023 08:38:51 Signed by:?Anthony Goode MD @07/23/2023 8:38:51 AM (Electronic Signature)
--- NOTE | 2023-07-22 14:29 | P.ORPRC_ITS ---
Procedure Note Date of procedure: 07/22/23 Procedure: PREOPERATIVE DIAGNOSIS: End-stage left upper extremity glenohumeral joint osteoarthritis POSTOPERATIVE DIAGNOSIS: End-stage left upper extremity glenohumeral joint osteoarthritis NAME OF OPERATION: Left upper extremity total shoulder arthroplasty SURGEON: Vick Smallwood MD PROJECT ARCHIVIST: Sabina Davis PA-C, FAITH Nelson ANESTHESIA: General endotracheal ESTIMATED BLOOD LOSS: 400 mL COMPLICATIONS: None SPECIMENS: None DRAINS: None PREOPERATIVE ANTIBIOTICS: Ancef 2 grams IMPLANTS: 1. Tornier XL 40 pegged glenoid component 2. Tornier 7B humeral stem 3. 54 x 18 high offset humeral head INDICATIONS: The patient is a 67-year-old male with a longstanding history of severe, unrelenting left shoulder pain secondary to end-stage glenohumeral joint osteoarthritis. Despite appropriate nonoperative management, including activity modification, anti-inflammatories, bvha-uqj-wybrnmp pain medication, physical therapy, and injections they continue to have pain and disability. Operative intervention was offered. The risks, benefits and expected outcomes were discussed in detail. These included but were not limited to: Infection, bleeding, injury to blood vessel or nerve, venous thromboembolism. All questions were answered to their satisfaction. Use of an engineer second assistant was necessary throughout the case for patient positioning and safety, soft tissue retraction, and closure. PROCEDURE: General anesthesia was administered. The patient was placed in the lazy beach chair position on the operating room table. The left upper extremity was prepped and draped in the usual sterile fashion. A standard deltopectoral incision was made. Subcutaneous dissection was taken with electrocautery to the deltopectoral interval. The cephalic vein was mobilized, lateral branches were cauterized. We bluntly entered the deltopectoral interval. We freed up the deltoid. The upper 1/3 of the insertion of the pectoralis was divided with cautery. The static retractor was placed. The clavipectoral fascia and CA ligament were divided. The circumflex vessels were controlled with electrocautery. The biceps was dissected out of the bicipital groove, was tagged with a #2 FiberWire suture and divided proximally. A FiberWire suture was placed in the subscapularis. The subscap was subperiosteally elevated off of the lesser tuberosity. The humeral head was delivered into the wound. The intramedullary humeral cutting guide was placed. We made the cut at the anatomic neck, in 20? of retroversion. Humeral sounds were used. Broaches were used until rotational stability was achieved. The cut protector was placed. Attention was then turned to the glenoid. Hohmann retractors were placed posteriorly. The labrum and biceps stump were sharply debrided. The origin of the inferior glenohumeral ligaments were subperiosteally released off of the glenoid. A venotomy was made with the scalpel into the cephalic vein. It was therefore ligated with a 0 Vicryl suture x2 distally and a single suture proxim ally. It was then divided. The glenoid appeared to be a XL 40. The drill guide was placed centrally. The guide pin was placed. The reamer was used to concentric bone. The central drill hole was made. The drill guide was placed and single superior and 2 inferior drill holes were made. The trial glenoid component was placed and was an excellent fit. The glenoid was irrigated with normal saline then thoroughly dried. Cement was placed in the superior and inferior drill holes. The XL 40 pegged glenoid component was placed and was impacted. This was an excellent fit. Attention then returned to the humerus. The trial humeral head was placed. We reduced the shoulder and took it through a range of motion. It was found to be stable with appropriate soft tissue tension. Trial humeral components were removed. We placed 2 x #2 FiberWire sutures through the lesser tuberosity for subsequent subscap repair. The biceps was tenodesed in the groove with sutures placed through drill holes, into the canal. We assembled the humeral component on the back table and impacted it into the canal. This had excellent purchase. The shoulder was reduced and was found to have appropriate soft tissue tension. We did a 3 min dilute Betadine solution soak. We irrigated the wound with 3 L of normal saline via pulse lavage. We repaired the subscapularis to the lesser tuberosity with our previously placed FiberWire sutures. The rotator interval was repaired with a #2 FiberWire suture. The deltopectoral interval was loosely reapproximated with an 0 Vicryl in an interrupted [id number] fashion. Subcutaneous tissues were closed with the 2-0 Vicryl and a running 3-0 Monocryl suture. The skin was sealed with glue. A dry dressing and sling were applied Sponge and needle counts were correct x2. The patient tolerated the procedure well, there were no apparent complications. They were awakened and extubated in the operating room, taken to the postanesthesia care unit in satisfactory condition. PLAN: The patient will be mobilized with physical therapy. The sling will be used for 6 weeks postoperatively. Active range of motion in forward flexion and abduction as tolerates. No external rotation greater than 0? for 6 weeks postoperatively. They will to be discharged to home once medically appropriate.
--- NOTE | 2023-07-22 15:08 | W.ANESCHARGE ---
Anesthesia Charges Start Date/Time Anesthesia Start Date: 07/22/23 Anesthesia Start Time: 12:06 Stop Date/Time Anesthesia Stop Date: 07/22/23 Anesthesia Stop Time: 15:09
[2023-07-22] MEDS: LACTATED RINGERS 1000 ML 1,000 ML 75 ML IV (16:12)
--- NOTE | 2023-07-22 16:22 | PM.IMCN1 ---
Date of Consult Patient: [facility] Patient Consult date: 07/22/23 Requesting Physician: Orthopedics Primary Care Provider: Anders Mirza MD Consult Narrative Reason for consult: Medical management s/p elective left total shoulder arthroplasty Narrative: Darius Gonzalez is a 67 year old man undergoes elective left total shoulder arthroplasty today per Dr. Vick Smallwood, [facility], [place], [place]. Procedure uneventful except blood loss of 500 mL for which he was given intraoperative TXA intravenously. Discontinued his once daily 81 mg of aspirin 1 week prior to elective procedure. No history of major bleeds. No history of venous thromboembolism. Postoperatively patient continues to require low-flow oxygen at 1-2 liters/minute via nasal cannula to maintain saturations greater than 88% at rest. Denies dyspnea. Denies chest heaviness, pressure, tightness, or pain. Denies cough. Had an elective knee replacement about a year ago after which she also had postoperative hypoxia requiring low-flow oxygen supplementation. Does not utilize oxygen supplementation at home. Had a same day back surgery at [facility] about 3 months ago, and patient and indicate that he did not require low-flow oxygen supplementation for that. Review of Systems Status of ROS: Reports: 10 or more systems reviewed and unremarkable except as noted in History and below [facility] Medical History (Updated 07/22/23 @ 16:42 by Sunil Thao MD) Postoperative hypotension ?I95.81 - Postprocedural hypotension (ICD-10) Low back pain ?M54.50 - Low back pain, unspecified (ICD-10) Skin lesions ?L98.9 - Disorder of the skin and subcutaneous tissue, unspecified (ICD-10) Pre-op exam ?Z01.818 - Encounter for other preprocedural examination (ICD-10) Renal calculi (03/05/22) ?N20.0 - Calculus of kidney (ICD-10) Type 2 diabetes mellitus ?E11.9 - Type 2 diabetes mellitus without complications (ICD-10) Hypertension ?I10 - Essential (primary) hypertension (ICD-10) Encounter for screening for severe acute respiratory syndrome coronavirus 2 (SARS-CoV-2) infection ?Z11.52 - Encounter for screening for COVID-19 (ICD-10) GERD (gastroesophageal reflux disease) ?K21.9 - Gastro-esophageal reflux disease without esophagitis (ICD-10) Surgical History History of repair of laceration (06/11/05) ?Z98.890 - Other specified postprocedural states (ICD-10) Status post left knee replacement (07/14/22) ?Z96.652 - Presence of left artificial knee joint (ICD-10) Status post right knee replacement (07/15/21) ?Z96.651 - Presence of right artificial knee joint (ICD-10) Family History Father CHF (congestive heart failure) High blood pressure Mother High blood pressure Social History What is your current living situation?: I presently have a place to live Highest level of school completed/degree received: Associate degree: occupational, technical, vocational program Smoking Status: Never smoker Do you use any of these nicotine containing products: None Second hand tobacco smoke exposure: No How often do you have a drink containing alcohol: monthly or less Alcohol type: beer How many standard drinks containing alcohol do you have on a typical day: 1 or 2 How often do you have six or more drinks on one occasion: Never AUDIT-C Alcohol total score: 1 Non-prescribed substance use: denies use Caffeine: No Little interest or pleasure in doing things: not at all Feeling down, depressed, or hopeless: not at all service: No Meds Home Medications and Allergies Home Medications Medication Instructions Recorded Confirmed Type aspirin 81 mg tablet,delayed 81 mg PO DAILY 09/14/22 07/22/23 History release atorvastatin 10 mg tablet 10 mg PO HS 07/22/23 07/22/23 History lisinopril 40 mg tablet 40 mg PO DAILY Hypertension 07/22/23 07/22/23 History metformin 500 mg tablet 500 - 1,000 mg PO BIDWM Diabetes 07/22/23 07/22/23 History Home Medication Comments: Also takes atenolol 100 mg daily and amlodipine 10 mg once daily Allergies Allergy/AdvReac Type Severity Reaction Status Date / Time No Known Allergies Allergy Verified 07/22/23 10:29 Exam Narrative: Exam Narrative: Examined patient 1st in the postanesthesia care unit in secondly in his hospital room. Appears comfortable no acute distress. Low-flow oxygen via nasal cannula with saturations mid to upper 90s. Normal vision and hearing. Alert and oriented to self, place, time, situation. Friendly and cooperative. Articulate. Neck is full. Lungs are clear to auscultation save decreased breath sounds in bases. No CVA tenderness. Heart tones with regular rhythm, normal S1-S2. No murmur, gallop, rub. Abdomen is obese with active bowel sounds, soft, nontender. Extremities without edema. Const: Vital Signs, click to edit/add: Vital Signs - 24 hr 07/22/23 10:35 07/22/23 11:48 07/22/23 11:55 Temperature 98.7 F Pulse Rate 56 L 56 L 54 L Respiratory Rate 16 16 16 Blood Pressure 155/79 H 158/80 H 130/77 Blood Pressure [Le ft Arm] Pulse Oximetry 96 97 97 Oxygen Delivery Me thod Room Air Nasal Cannula Nasal Cannula Oxygen Flow Rate 2 2 07/22/23 12:00 07/22/23 12:05 07/22/23 15:04 Temperature 96.8 F L Pulse Rate 56 L 55 L 66 Respiratory Rate 16 16 12 Blood Pressure 139/75 133/75 137/74 Blood Pressure [Le ft Arm] Pulse Oximetry 97 97 93 Oxygen Delivery Me thod Nasal Cannula Nasal Cannula Nasal Cannula Oxygen Flow Rate 2 2 2 07/22/23 15:10 07/22/23 15:15 07/22/23 15:20 Temperature Pulse Rate 62 59 L 63 Respiratory Rate 14 14 16 Blood Pressure 122/71 119/69 126/65 Blood Pressure [Le ft Arm] Pulse Oximetry 93 92 93 Oxygen Delivery Me thod Oxygen Flow Rate 3 07/22/23 15:25 07/22/23 15:30 07/22/23 15:35 Temperature 96.5 F L Pulse Rate 64 61 62 Respiratory Rate 14 14 16 Blood Pressure 123/65 115/72 118/72 Blood Pressure [Le ft Arm] Pulse Oximetry 92 93 93 Oxygen Delivery Me thod Oxygen Flow Rate 07/22/23 15:49 Temperature 96.1 F L Pulse Rate Respiratory Rate 16 Blood Pressure Blood Pressure [Le ft Arm] 120/68 Pulse Oximetry Oxygen Delivery Me thod Nasal Cannula Oxygen Flow Rate 1.0 Assessment and Plan Assessment and plan (1) Status post total replacement of left shoulder: Status: Acute (2) Rotator cuff tear, left: Status: Acute (3) Osteoarthritis of left shoulder: Status: Acute (4) Osteoarthritis of right shoulder: Status: Acute (5) Anemia: Problem comment: Hemoglobin 13.3 on 09/29/2022 Status: Acute (6) Type 2 diabetes mellitus: Problem comment: Hemoglobin A1c 7.2 on 07/05/2023 Status: Acute (7) Hypertension: Status: Acute (8) Status post left knee replacement: Problem comment: 07/14/2022, Dr. Smallwood Status: Acute (9) Low back pain: Status: Acute (10) Spinal stenosis of lumbar region: Status: Acute (11) Obesity: Status: Acute (12) GERD (gastroesophageal reflux disease): Status: Acute (13) Intraoperative hemorrhage: Problem comment: - Hemoglobin 13.3 on 09/29/2022 - TXA administered intraoperatively - recheck hemoglobin in the morning - hold current dose of aspirin 81 mg once daily per Orthopedic surgery - resume usual dose of aspirin 81 mg once daily per Orthopedic surgery Status: Acute (14) Postoperative hypoxemia: Status: Acute Plan 1. Reviewed impression with patient and . 2. Sliding scale insulin while in hospital. 3. Metformin 500 mg p.o. b.i.d. while in hospital. 4. Continue with other antihypertensive medications. 5. Agree with perioperative antibiotic prophylaxis. 6. Will follow with Orthopedic surgery while patient is in hospital. 7. Completed hospitalists portion of discharge orders. 8. Recheck hemoglobin. 9. Monitor oxygen saturations and administer low-flow oxygen as needed. 10. Consider two view chest x-ray in the morning if continues to require oxygen supplementation. 11. Patient are agreeable to above stated plans and recommendations.
--- NOTE | 2023-07-22 18:04 | PC.NURSE ---
PATIENT ARRIVED TO FLOOR AROUND 1545 ALERT BUT DROWSY, MOVEMENT TO LEFT HAND PER PATIENT FEELING TINGLING, DRESSING TO LEFT SHOULDER CDI, ACTIVE ICE TO SITE, BG 164 PRIOR TO SUPPER, TOLERATING LIQUIDS AND FOOD AT THIS TIME, FAMILY PRESENT AT BEDSIDE VERY SUPPORTIVE.
[2023-07-22] MEDS: METFORMIN 500 MG TABLET PO (18:49)
[2023-07-22] MEDS: SENNOSIDES 1 TAB TABLET 2 TAB PO (21:15)
[2023-07-23 03:00] VITALS: BP 141/61; PULSE 82; RESP 18; TEMP 36.7; O2SAT 92
[2023-07-23] MEDS: ACETAMINOPHEN 500 MG TABLET 1000 MG PO (06:50)
[2023-07-23] MEDS: OMEPRAZOLE 20 MG CAPSULE DR PO (06:50)
[2023-07-23 07:00] VITALS: BP 128/82; PULSE 84; RESP 20; TEMP 36.9; O2SAT 94; O2SAT 95
[2023-07-23 07:00] LABS: Hematocrit 37.6 % (37.0-53.0); Hemoglobin* 12.7 gm/dL (13.5-17.5); Mean Corpuscular HGB Conc 34 gm/dL (32-36); Mean Corpuscular Hemoglobin 29 pg (26-34); Mean Corpuscular Volume 87 fL (80-100); Platelet Count* 236 K/uL (140-440); Red Blood Count 4.34 m/uL (4.30-5.90); White Blood Count* 12.42 K/uL (4.50-11.00)
[2023-07-23 07:05] LABS: Sodium* 133 mmol/L (135-149)
[2023-07-23 07:08] LABS: Blood Urea Nitrogen* 30 mg/dL (7-30); Est. Creatinine Clearance* 67.45; Estimated Glomerular Filt Rate 81 ml/min; Slide Review Reflex No
--- NOTE | 2023-07-23 07:22 | XR_ITS ---
Patient: [facility] Facility:?[facility] Patient ID:?[id number] Site Patient ID:?[id number]. Site :?[id number] Study:?XRay-Chest 2 VIEW-07/23/2023 7:55:35 AM Ordering Physician:CHIOMA Final Report: INDICATION: Hypoxia COMPARISON: None TECHNIQUE: Two views of the chest were acquired FINDINGS: TUBES AND LINES: None. HEART AND MEDIASTINUM: The heart size is normal. The mediastinal contour appears normal for patient age. LUNGS AND PLEURAL SPACES: Opacity at the left lung base with elevation of left hemidiaphragm. This is probably due to atelectasis though aspiration or early pneumonia are also possible.No large effusions. No pneumothorax OSSEOUS STRUCTURES: Left shoulder arthroplasty IMPRESSION: Left lower lobe airspace process. This is associated with elevation of the left hemidiaphragm and is probably largely atelectasis. Aspiration or early pneumonia can also create this appearance. Dictated by Pee Pike MD @ 07/23/2023 10:26:14 AM Signed by:?Pee Pike MD @07/23/2023 10:26:14 AM (Electronic Signature)
--- NOTE | 2023-07-23 07:36 | PC.NURSE ---
End of shift report: Denies any pain to left shoulder, dressing clean dry and intact. CMS intact to left hand and patient has mild weakness to fingers with movement. Patient reports continued tingling/numbness to shoulder and into hand. Up with minimal assist to stand and able to ambulate independently. Continues to require oxygen at 1L to maintain sats >90%.
--- NOTE | 2023-07-23 08:09 | P.ORPN_ITS ---
Subjective Subjective Time Seen by Provider: 07:15 Date Seen: 07/23/23 Principal diagnosis: Status post left shoulder replacement Interval history: Darius is comfortable this morning. He has been on 2 L of oxygen since surgery for hypoxemia. He denies nausea vomiting. Ortho Exam Narrative Exam Narrative: Alert and oriented x3. Patient is in no acute distress. Converses without labored breathing. Hearing is grossly intact. Ambulates with a normal gait. Examination of the left upper extremity shows minimal soft tissue edema. No e cchymosis. Dressing is intact. No erythema or warmth or sign of infection. He is able to make a full composite fist and fully extend his fingers. He is able to extend and flex his wrist. He has not yet able to flex and extend the elbow or shoulder. Sensation intact in the left hand. Capillary refill less than 2 seconds. 2+ normal pulses at the wrist. Sling is in place. Const Vital Signs, click to edit/add: Vital Signs - 24 hr 07/22/23 10:35 07/22/23 11:48 07/22/23 11:55 Temperature 98.7 F Pulse Rate 56 L 56 L 54 L Pulse Rate [Pulse Oximeter] Respiratory Rate 16 16 16 Blood Pressure 155/79 H 158/80 H 130/77 Blood Pressure [Left Arm] Pulse Oximetry 96 97 97 Oxygen Delivery Method Room Air Nasal Cannula Nasal Cannula Oxygen Flow Rate 2 2 07/22/23 12:00 07/22/23 12:05 07/22/23 15:04 Temperature 96.8 F L Pulse Rate 56 L 55 L 66 Pulse Rate [Pulse Oximeter] Respiratory Rate 16 16 12 Blood Pressure 139/75 133/75 137/74 Blood Pressure [Left Arm] Pulse Oximetry 97 97 93 Oxygen Delivery Method Nasal Cannula Nasal Cannula Nasal Cannula Oxygen Flow Rate 2 2 2 07/22/23 15:10 07/22/23 15:15 07/22/23 15:20 Temperature Pulse Rate 62 59 L 63 Pulse Rate [Pulse Oximeter] Respiratory Rate 14 14 16 Blood Pressure 122/71 119/69 126/65 Blood Pressure [Left Arm] Pulse Oximetry 93 92 93 Oxygen Delivery Method Oxygen Flow Rate 3 07/22/23 15:25 07/22/23 15:30 07/22/23 15:35 Temperature 96.5 F L Pulse Rate 64 61 62 Pulse Rate [Pulse Oximeter] Respiratory Rate 14 14 16 Blood Pressure 123/65 115/72 118/72 Blood Pressure [Left Arm] Pulse Oximetry 92 93 93 Oxygen Delivery Method Oxygen Flow Rate 07/22/23 15:49 07/22/23 16:00 07/22/23 16:15 Temperature 96.1 F L 96.1 F L Pulse Rate Pulse Rate [Pulse Oximeter] 65 62 Respiratory Rate 16 16 16 Blood Pressure Blood Pressure [Left Arm] 120/68 115/64 106/64 Pulse Oximetry 90 90 Oxygen Delivery Method Nasal Cannula Nasal Cannula Nasal Cannula Oxygen Flow Rate 1.0 1.0 1.0 07/22/23 16:30 07/22/23 16:45 07/22/23 17:00 Temperature 96.1 F L 96.8 F L Pulse Rate Pulse Rate [Pulse Oximeter] 62 62 68 Respiratory Rate 16 16 16 Blood Pressure Blood Pressure [Left Arm] 105/61 108/62 103/62 Pulse Oximetry 93 93 91 Oxygen Delivery Method Nasal Cannula Nasal Cannula Nasal Cannula Oxygen Flow Rate 1.0 1.0 1.0 07/22/23 17:30 07/22/23 18:00 07/22/23 20:00 Temperature 96.8 F L Pulse Rate Pulse Rate [Pulse Oximeter] 67 75 83 Respiratory Rate 16 16 16 Blood Pressure Blood Pressure [Left Arm] 105/61 113/66 127/62 Pulse Oximetry 91 92 91 Oxygen Delivery Method Nasal Cannula Nasal Cannula Nasal Cannula Oxygen Flow Rate 1.0 1.0 1.0 07/22/23 21:00 07/22/23 22:00 07/22/23 23:00 Temperature Pulse Rate Pulse Rate [Pulse Oximeter] 82 82 81 Respiratory Rate 16 16 18 Blood Pressure Blood Pressure [Left Arm] 128/69 119/64 Pulse Oximetry 92 90 Oxygen Delivery Method Nasal Cannula Nasal Cannula Oxygen Flow Rate 1.0 1.0 07/22/23 23:00 07/22/23 23:00 07/23/23 03:00 Temperature 97.4 F L 98.1 F Pulse Rate Pulse Rate [Pulse Oximeter] 81 82 Respiratory Rate 18 18 18 Blood Pressure Blood Pressure [Left Arm] 120/59 L 141/61 H Pulse Oximetry 92 92 92 Oxygen Delivery Method Nasal Cannula Nasal Cannula Nasal Cannula Oxygen Flow Rate 1.0 1.0 2 Assessment and Plan Assessment and plan (1) Postoperative hypoxemia: Status: Acute Assessment and Plan: Chest x-ray has been ordered. (2) Status post total replacement of left shoulder: Problem details: 07/22/2023 Status: Acute Assessment and Plan: Darius is comfortable. Nasal cannula in place. He states he normally sleeps elevated in bed. He is looking forward to better function and less pain in the left shoulder. He states his right shoulder is likely worse than the left and will be looking forward to possible right shoulder replacement. For now we will focus on the left shoulder. Plan for discharge is to home when he meets discharge criteria. Cristina Burgos will watch for results of the chest x-ray. Patient will wear the sling for 6 weeks post surgery. They can take it off for comfort and for exercises. Activity: no external rotation of the operative shoulder past 0? x 6 weeks. Forward flexion and abduction of the shoulder is allowed as tolerated. They will work on range of motion of the elbow, wrist, fingers once the block has wore off on the operative extremity. Patient will begin physical therapy for the operative shoulder next week. For discharge, oxycodone and Tylenol for pain. Do not drive while on narcotic pain medication. Drive only when safe to do so, when they have normal use/function of the upper extremity, this will likely take 6 weeks. Patient will minimize and discontinue the narcotic as soon as possible. Remove dressing in 1 week. Dressing is waterproof. May shower. Surgical glue covers the wound. Do not scrub the wound. Expect swelling and bruising about the shoulder and upper extremity. Use of ice/active ice without restriction. Notify Orthopedics if swelling is excessive. notify Orthopedics with any questions or concerns. [phone] Return to Orthopedic clinic next week for a wound check Return to clinic in [address] Smallwood.
[2023-07-23] MEDS: lisinopriL 20 MG TABLET 40 MG PO (08:50)
[2023-07-23] MEDS: atenoloL 50 MG TABLET 100 MG PO (08:50)
[2023-07-23] MEDS: METFORMIN 500 MG TABLET PO (08:50)
[2023-07-23] MEDS: SENNOSIDES 1 TAB TABLET 2 TAB PO (08:50)
[2023-07-23] MEDS: AMLODIPINE 10 MG TABLET PO (08:50)
--- NOTE | 2023-07-23 11:35 | PC.SOCIAL ---
Discharge planning: Met with pt to discuss discharge planning. Pt will be going home with his and feels good about this plan. Pt has no other concerns at this time. Social work to follow-up as needed.
== END 2023-07-23 11:27 | disposition home or self-care (01) ==
LOC: OR 10:18 → MEDSURG 10:19
PROVIDERS: Internal Medicine; PCP Internal Medicine; Visit Provider Orthopaedic Surgery
PROC: 0RRJ0JZ Replacement of Right Shoulder Joint with Synthetic Substitute, Open Approach (ICD-10-PCS; CPT 23472; principal; 2023-07-22 11:30)
DX: M19.012 Primary osteoarthritis, left shoulder (principal); M75.102 Unspecified rotator cuff tear or rupture of left shoulder, not specified as traumatic; G89.18 Other acute postprocedural pain; J95.89 Other postprocedural complications and disorders of respiratory system, not elsewhere classified; R09.02 Hypoxemia; E66.9 Obesity, unspecified; Z68.42 Body mass index [BMI] 45.0-49.9, adult; E11.9 Type 2 diabetes mellitus without complications; I10 Essential (primary) hypertension; K21.9 Gastro-esophageal reflux disease without esophagitis; M48.061 Spinal stenosis, lumbar region without neurogenic claudication; M19.011 Primary osteoarthritis, right shoulder; M54.50 Low back pain, unspecified
CPT/HCPCS: 23472; 01638; 36415; 64415; 71046; 73030; 76942; 82565; 82962; 84132; 84295; 84520; 85018; 85027; 97110; 97116; 97161; 97165; 97535; A9270; C1776; J0330; J0690; J1100; J2250; J2405; J2704; J2795; J3010; J3490; J7120; L3670

== ENCOUNTER 2023-09-23 07:30 | Outpatient (RCR) | payer MEDICARE, BC, SELFPAY ==
--- NOTE | 2023-08-05 08:29 | PT.OPEX ---
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 HE REPORTS THAT HIS RIGHT SHOULDER WILL BE REPLACED IN OCTOBER. MARILUZ STATES, I REALLY DON'T HAVE MUCH PAIN AT ALL. I'VE BEEN USING MY ICE AND STOPPED THE OXY ABOUT A WEEK AGO. I'M JUST USING TYLENOL AND IT'S SEEMS TO BE DOING THE TRICK. HE DEMONSTRATES WHAT DR. RON HAS ASKED HIM TO DO WHICH IS SEATED AAROM USING CONTRALATERAL ARM INTO FLEX. Pain Comments -09/07 Date of Last Physician Visit 07/28/23 Date of Surgery (If applicable) 07/22/23 Current Work Status Retired Preferred Name MARILUZ Precautions Treatment Precautions/Contraindications 08/05/23: NWB, IN SLING FOR 6 WEEKS, NO EXT PAST NEUTRAL, REACHING BEHIND BACK, RESISTED IR, >30 DEGREES ER Weight Bearing Status Non-Weight Bearing Objective Other/Pertinent Objective SUPINE PROM LEFT SHOULDER: FLEX: 96 ABD: 90 ER@45: TTT ALONG INCISION AND ANTERIOR SHOULDER INCISION IS PRISTINE, ABSENT OF S/S OF INFECTION, MIN EDEMA RERE-INCISION Assessment Assessment/Impression PATIENT IS A 67 YO MALE PATIENT OF DR. RON S/P rTSA (07/22/23) HERE TO EVAL AND TX ; PMHX INCLUDES BUT NOT LIMITED TO LBP, DMII, H/O SARS -COV-2, GERD, LEFT TKA (), RIGHT TKA (07/15/21), RIGHT SHOULDER SEVERE OA SCHEDULED FOR TSA . PATIENT PRESENTS TODAY WEARING SLING APPROPRIATELY AND REPORTING PAIN 2/10 AT REST AND 4/10 WITH AAROM USING CONTRALATERAL ARM. WE DISCUSSED THE PRECAUTIONS AND RESTRICTION, SYMPTOM MGMT, AND MONITORING FOR S/S OF INFECTION. SEE ABOVE FOR PROM NOTING PRISTINE INCISION. TODAY, HE PERFORMED HIS HEP TO INCLUDE CERVICAL ROM/ STRETCHING, ELBOW/FOREARM/WRIST AROM, PENDULUM AND GENTLE SCAPULAR SETTING. WE CHANGED THE SEATED AAROM SHOULDER FLEX TO TABLE SLIDES INTO FLEX PROVIDED INSTRUCTION NOT TO PUSH PAIN. HE IS APPROPRIATE FOR SKILLED PHYSICAL THERAPY TO ADDRESS S/P rTSA FOR ROM, STRENGTHENING, STABILIZATION, AND SYMPTOM MGMT. PATIENT VERBALIZED UNDERSTANDING OF ALL SKILLED INSTRUCTION AND EDUCATION WELL AGREEABLE TO POC AND FREQ. Primary Functional Limitations USE OF R SHOULDER FOR ADL'S, REACHING, LIFTING, DRESSING, MOBILITY Plan of Care Rehabilitation Potential Good Physical Therapy Goals STG IN 4-6 WEEKS: 1. PATIENT WILL DEMONSTRATE GOOD MGMT OF HIS PAIN AND EDEMA WITH REPORTED PAIN </3/ 10 DURING HIS HOME PROGRAM AND WITH THE PROGRESSION OF HIS PHYSICAL THERAPY. 2. PATIENT WILL RETURN TO INDEPENDENCE WITH ADL'S, RETURN TO DRIVING, AND MAINTAIN HIS PRECAUTIONS/ RESTRICTIONS 3. PATIENT WILL DEMONSTRATE PROM TO WFL TO PREPARE FOR RETURN TO FUNCTIONAL USE OF LEFT UE LTG WITHIN 10-12 WEEKS: 1. PATIENT WILL DEMONSTRATE AROM OF LEFT SHOULDER TO WFL TO RETURN TO FULL FUNCTIONAL FOR ADL'S, IADL'S AND PEER CENTERED ACTIVITIES. 2. PATIENT WILL DEMONSTRATE FUNCTIONAL STRENGTH TO RETURN TO REACHING OVERHEAD, ANTERIORLY AND OUT TO SIDE NEEDED DURING PATIENT CENTERED ACTIVITIES. 3. PATIENT WILL DEMONSTRATE INDEPENDENCE WITH HIS HEP TO PROGRESS TWD THE ABOVE MENTIONED GOALS, CONTINUED MGMT OF SYMPTOMS, AND ONGOING IMPROVEMENT WITH ROM, STRENGTH AND FUNCTION FOR A FULL RETURN TO ALL ACTIVITIES Coordination/Communication With Referral Source Treatment Plan/Direct Interventions Ice/Cold/Vasopneumatic,Joint Mobilization,Manual Therapy, Neuromuscular Re-ed, Therapeutic Activities, Therapeutic Exercises Frequency/Duration 1-2X/WK 12WEEKS Patient Will Be Discharged From Therapy Completion of LTG(s), Independently Progressing Evaluation Billing PT Eval No Charge No Complexity Moderate Certification Information Initial Certification Date 08/05/23 Ending Certification Date 11/02/23 Provider Signature Shows Agreement With POC & Medical Necessity Physician Signature & Date Requested Please Sign/Date Here Physician Comment/Change : Physician NPI Number #
== END 2023-10-27 15:37 | disposition home or self-care (01) ==
PROVIDERS: PCP Internal Medicine; Visit Provider Orthopaedic Surgery
DX: M19.012 Primary osteoarthritis, left shoulder (principal); Z96.612 Presence of left artificial shoulder joint; Z51.89 Encounter for other specified aftercare
CPT/HCPCS: 73221; 97110; 97140; 97162; 97165

== ENCOUNTER 2023-11-01 07:34 | Outpatient (CLI) | payer MEDICARE, BC, SELFPAY ==
--- OUTSIDE RECORDS SUMMARY | 2023-11-05 15:33 | XMS_ITS | Data Portability ---
Author Organization [place] - [facility], [facility] Address [address] [place] [address] Assessment Encounter Date Assessment Date Assessment LastModified by Organization Details LastModified Time 03/11/2022 03/11/2022 66M with 5 mm right ureteral stone. Symptoms improving overall from his visit at [facility] last week, but still some intermittent RLQ/right [...] stone. - reviewed outside CT scan from [facility] - no concern for infx based on [...] stone protocol if stone has not passed [email or web address] Not available 03/11/2022 15:48:57 Plan of Treatment Reminders Order Date Submit Date Provider Last Modified By Organization Details Last Modified Time Details Appointments None recorded. Lab urinalysis , dipstick 2021 022 [email or web address] [facility], [address], [place], [address], 15:02:51 Referral None recorded. Procedures None recorded. Surgeries None recorded. Imaging None recorded. Medication Orders None recorded. Patient TargetsNo targets recorded. Patient InstructionsNo instructions recorded. Reason for Referral None Reported. Results Created Date Observation Date Name Description Value Unit Range Abnormal Flag LastModifiedBy Organization Detail LastModifiedTime 03/11/2003/11/2022 urina lysis , dipst ick pH-Status 5.5 Not Available [facility] [address], [place], [address], 03/11/2022 14:53:11 03/11/2003/11/2022 urina lysis , dipst ick Blood-Status Small Not Available [facility] [address], [place], [address], 03/11/2022 14:53:11 03/09/2003/05/2022 CT, abdom en + pelvi s, w/o contr ast No observ ation record ed. Not Available 03/09/2022 11:58:01 Result Notes None recorded. Procedures Surgical History Date Name Laterality Status Provider Name and Address Organization Details Recorded Time total knee replacement completed Shelley Carpio [facility] 03/11/2022 15:00:35 Imaging Results Imaging [...] Updated DateTime 03/11/2022 172.72 cm 45.6 kg/m2 891160.71 g Shelley Carpio [facility] 03/11/2022 14:59:06 Social History Question Answer Notes LastModified by Organizat ion Details LastModified Time Tobacco Smoking Status Never Smoker Shelley Carpio [facility] 03/11/2022 15:01:32 What Is Your Level [...] ca rdiac disorder Medical History Condition Response Sexually Transmitted Infection N Diabetes Y Other N Bleeding Disorder N High Blood Pressure Y Kidney Stones Y High Cholesterol N GERD/Acid Reflux N Heart Disease N Cancer N Lung Disease N Depression N Past Encounters Encounter ID Performer Location Encounter Start Date Encounter Closed Date Diagnosis/Indication Diagnosis SNOMED-CT Code [id number] Danii Hughes PA-C [facility] [address] [address] 03/11/2022 14:30:56 03/13/2022 09:49:42 Kidney stone 30413642 Health Concerns Section Related Observation LastModified by Organization Detai ls LastModified Time None Recorded Concern Status LastModified by Organization Details LastModified Time None Recorded Advance Directives Directive None Recorded Payers Encounter Date Sequence Insurance Name Policy Number Policy Galvez Covered Member ID Galvez Member ID Guarantor Name 03/11/2022 1 [facility] [id number] Darius F Carlos [id number] [place] F Carlos 03/11/2022 1 MEDIC[place]: [id number] Darius F Carlos [id number] [facility] Notes Date Note Type Note Provider Name and Address Organization Details Recorded Time 03/11/2022 text/html HPI Notes: 66M with 5 mm right ureteral stone. Seen in [facility] last week for right flank pain. CT [...] father - prostate cancer Danii Hughes PA-C [address], [place], [address], [facility] 03/11/2022 15:49:06
--- OUTSIDE RECORDS SUMMARY | 2023-11-05 15:33 | XMS_ITS | Referral Summary ---
Author Organization [facility] Address [address] [place] [address]. [place] [address] Care Team Providers Care Refractory Products Supervisor Name Role Phone Anders Mirza MD Primary Care Provider Allergies No known active allergies Medications Medication Sig Dispensed Refills Start Date End Date Status lisinopril (ZESTRIL) 40 MG tablet Take 40 mg by mouth daily Active acetaminophen (TYLENOL) 500 MG tablet Take 500-1,000 mg by mouth every 6 hours as needed for mild pain Active amLODIPine (NORVASC) 10 MG tablet Take 10 mg by mouth daily Active atenolol (TENORMIN) 100 MG tablet Take 100 mg by mouth daily Active atorvastatin (LIPITOR) 10 MG tablet Take 10 mg by mouth daily Active metFORMIN (GLUCOPHAGE) 500 MG tablet Take 1,000 mg by mouth 2 times daily (with meals) Active pantoprazole (PROTONIX) 20 MG EC tablet Take 20 mg by mouth daily Active oxyCODONE (ROXICODONE) 5 MG tabletIndications:S/P lumbar microdiscectomy Take 1-2 tablets (5-10 mg) by mouth every 6 hours as needed for pain 20 tablet 10/22/2022 Active methocarbamol (ROBAXIN) 750 MG tabletIndications:S/P lumbar microdiscectomy Take 1 tablet (750 mg) by mouth 4 times daily as needed for muscle spasms 60 tablet 10/22/2022 Active Social History Tobacco Use Types [...] CDT Plan of Treatment Not on file Procedures Procedure Name Priority Date/Time Associated Diagnosis Comments GLUCOSE BY METER Routine 10/22/2022 5:39 AM CDT from Last 3 Months or Most Recently Relevant to Health Maintenance Results * (ABNORMAL) Glucose by meter (10/22/2022 5:39 AM CDT) GLUCOSE BY METER POCT 135(H) 70 - 99 mg/dL 10/22/2022 5:45 AM CDT LABORATORY POC Blood, Capillary BLOOD SPECIMEN / Unknown 10/22/2022 5:39 AM CDT 10/22/2022 5:45 AM CDT Braden LOPEZ - [facility] POCT [facility] LABORATORY [facility] Acute Care Lab [address] Lab (1st floor, no room number) [place] [address], [place] [phone] from Last 3 Months or Most Recently Relevant to Health Maintenance Care Teams Refractory Products Supervisor Relationship Specialty Start Date End Date Anders Mirza MD [facility] [address] [place] [address] PCP - General Emergency Medicine 10/16/22
--- OUTSIDE RECORDS SUMMARY | 2023-11-05 15:33 | XMS_ITS | Clinical Summary ---
Author Organization [facility] Address [address] [place] [address]. [place] [address] Care Team Providers Care Arch Pad Cementer Name Role Phone Anders Mirza MD Primary [...] SIG 1955 LIPID 1953 sDNA (Cologuard) 1953 COLONOSCOPY 09/29/1963 COLORECTAL CANCER SCREENING 09/29/1963 HEPATITIS C SCREENING 09/29/1971 ZOSTER IMMUNIZATION (1 of 2) 09/29/2003 RSV VACCINE ( & 60+ ) (1 - 1-dose 60+ series) 2013 FALL RISK ASSESSMENT 2018 MEDICARE ANNUAL WELLNESS VISIT 2018 Pneumococcal Vaccine: 65+ Years (2 of 2 - PCV) 2018 10/15/2010 DTAP/TDAP/TD IMMUNIZATION (2 - Td or Tdap) 10/15/2020 10/15/2010, 05/31/2005 COVID-19 Vaccine (1 - 2022-2 4 season) 2023 PHQ-2 (once per calendar year) 2023 INFLUENZA VACCINE (Season Ended) 2024 GLUCOSE 10/22/2025 10/22/2022, 10/22/2022 HPV IMMUNIZATION Aged [...] on patient's age to complete this topic Procedures Procedure Name Priority Date/Time Associated Diagnosis [...] AM CDT Braden Ballard MD LAB - [facility] POCT LABORATORY [facility] Acute Care Lab [address] [facility] Lab (1st floor, no room number) [place] [address], [facility] [phone] from Last 3 Months or Most Recently Relevant to Health Maintenance Care Teams Arch Pad Cementer Relationship Specialty Start Date End Date Anders Mirza MD [facility] [address] [place] [address] PCP - General Emergency Medicine 10/16/22
--- OUTSIDE RECORDS SUMMARY | 2023-11-05 15:33 | XMS_ITS | Clinical Summary ---
Author Organization [facility] Address [place], [place] [address] Care Team Providers Care Industrial Plant Custodian Name Role Phone Pcp, No Primary Care [...] once daily, and as needed. 100 Each prn 09/15/2012 Active lancets (ACCU-CHEK SOFTCLIX LANCETS) Test once daily, and as needed. 100 Each prn 09/15/2012 Active metFORMIN (GLUCOPHAGE XR) 500 mg [...] Health Maintenance Due Date Last Done Comments Depression screening for age 12+ 1965 BMI [...] 2018 10/15/2010 Tetanus booster 10/15/2020 10/15/2010, 05/31/2005 COVID-19 vaccine series ( - 2022- season) 2023 Influenza for age 65+ 01/30/2024 Tdap Completed 10/15/2010 Procedures Procedure Name Priority Date/Time Associated Diagnosis Comments LIPID PANEL W REFLEX MEASURED LDL Routine 09/14/2012 7:14 AM CDT DM w/o complication type II from Last 3 Months or Most Recently Relevant to Health Maintenance Results * LIPID PANEL W REFLEX MEASURED LDL (09/14/2012 7:14 AM CDT) CHOLESTEROL,TOTAL 144 100 - 199 mg/dL 09/14/2012 9:38 AM CDT [facility] TRIGLYCERIDES 109 <150 mg/dL 09/14/2012 9:38 AM CDT [facility] HDL CHOLESTEROL 44 >40 mg/dL 3 9:38 AM T [facility] NON-HDL CHOLESTEROL 100 <145 mg/dl 09/14/2012 9:38 AM T [facility] CHOL/HDL RATIO 3.27 <4.50 09/14/2012 9:38 AM T [facility] LDL CHOLESTEROL 78 <=130 mg/dL 09/14/2012 9:38 AM T [facility] PATIENT STATUS FASTING 09/14/2012 9:38 AM T [facility] Blood specimen (specimen) BLOOD SPECIMEN / Unknown 09/14/2012 7:14 AM CDT 09/14/2012 7:14 AM CDT Silvestre Griggs MD CHEMISTRY [facility] [address] [place] [address] from Last 3 Months or Most Recently Relevant to Health Maintenance Care Teams Industrial Plant Custodian Relationship Specialty Start Date End Date Pcp, No . PCP - General 07/10/14
== END 2023-11-01 07:35 | disposition home or self-care (01) ==
LOC: NFLDREF 11-05 15:31
PROVIDERS: PCP Internal Medicine; Referring Provider Internal Medicine; Visit Provider Internal Medicine
DX: E11.65 Type 2 diabetes mellitus with hyperglycemia (principal); I10 Essential (primary) hypertension; Z79.84 Long term (current) use of oral hypoglycemic drugs; Z13.220 Encounter for screening for lipoid disorders; Z12.5 Encounter for screening for malignant neoplasm of prostate
CPT/HCPCS: 80053; 80061; 82043; 82570; G0103

== ENCOUNTER 2023-11-11 07:21 | Day surgery (SDC) | payer MEDICARE, BC, SELFPAY ==
[2023-11-11] VITALS (23 sets, daily range): BP systolic 91–140; BP diastolic 47–76; PULSE 53–70; RESP 12–24; TEMP 36.1–37.1; O2SAT 82–96; BMI 47.0
--- NOTE | 2023-11-11 | CRLHL7_ITS ---
For Patients: As a result of the Cures Act, medical imaging exams and procedure reports are released immediately into your electronic medical record. You may view this report before your referring provider. If you have questions, please contact your health care provider. Indication: Postop Technique: Two views right shoulder Findings/Impression: Hardware from a right total shoulder arthroplasty is in satisfactory position. Bone alignment is normal. No sign of acute fracture. Postop changes are within normal limits. Dictated by Channing Douglas MD @ 11/16/2023 9:22:16 AM (Electronically Signed)
--- OUTSIDE RECORDS SUMMARY | 2023-11-11 07:23 | XMS_ITS | Data Portability ---
Author Organization [place] [facility] Address [address] [place] [address] Assessment Encounter Date Assessment Date Assessment LastModified by Organization Details LastModified Time 03/11/2022 03/11/2022 66M with 5 mm right ureteral stone. Symptoms improving overall from his visit at [place] last week, but still some intermittent RLQ/right [...] stone. - reviewed outside CT scan from [place] - no concern for infx based on [...] stone protocol if stone has not passed [email or web address] Not available 03/11/2022 15:48:57 Plan of Treatment Reminders Order Date Submit Date Provider Last Modified By Organization Details Last Modified Time Details Appointments None recorded. Lab urinalysis , dipstick 2021 022 [email or web address] [facility], [address], [place], [address], 15:02:51 Referral None recorded. Procedures None recorded. Surgeries None recorded. Imaging None recorded. Medication Orders None recorded. Patient TargetsNo targets recorded. Patient InstructionsNo instructions recorded. Reason for Referral None Reported. Results Created Date Observation Date Name Description Value Unit Range Abnormal Flag LastModifiedBy Organization Detail LastModifiedTime 03/11/2003/11/2022 urina lysis , dipst ick pH-Status 5.5 Not Available [facility] [address], [place], [address], 03/11/2022 14:53:11 03/11/2003/11/2022 urina lysis , dipst ick Blood-Status Small Not Available [facility] [address], [place], [address], 03/11/2022 14:53:11 03/09/2003/05/2022 CT, abdom en + pelvi s, w/o contr ast No observ ation record ed. Not Available 03/09/2022 11:58:01 Result Notes None recorded. Procedures Surgical History Date Name Laterality Status Provider Name and Address Organization Details Recorded Time total knee replacement completed Shelley Carpio [facility] 03/11/2022 15:00:35 Imaging Results Imaging [...] Updated DateTime 03/11/2022 172.72 cm 45.6 kg/m2 609820.71 g Shelley Carpio [facility] 03/11/2022 14:59:06 Social History Question Answer Notes LastModified by Organizat ion Details LastModified Time Tobacco Smoking Status [facility] 03/11/2022 15:01:32 What Is Your Level [...] Disease N Depression N GERD/Acid Reflux N Diabetes Y Sexually Transmitted Infection N Bleeding Disorder N Cancer N High Cholesterol N Heart Disease N Past Encounters Encounter ID Performer Location Encounter Start Date Encounter Closed Date Diagnosis/Indication Diagnosis SNOMED-CT Code [id number] Danii Hughes PA-C [facility] [address] [place] [address] 03/11/2022 14:30:56 03/13/2022 09:49:42 Kidney stone 16167442 Health Concerns Section Related Observation LastModified by Organization Detai ls LastModified Time None Recorded Concern Status LastModified by Organization Details LastModified Time None Recorded Advance Directives Directive None Recorded Payers Encounter Date Sequence Insurance Name Policy Number Policy Galvez Covered Member ID Galvez Member ID Guarantor Name 03/11/2022 1 [facility] [id number] Darius F Carlos [id number] [place] F Carlos 03/11/2022 1 MEDICARE [place]: [employer] Darius F Carlos [id number] [facility] Notes Date Note Type Note Provider Name and Address Organization Details Recorded Time 03/11/2022 text/html HPI Notes: 66M with 5 mm right ureteral stone. Seen in [place] last week for right flank pain. CT [...] - prostate cancer Danii Hughes PA-C [address], [place], [address], [facility] 03/11/2022 15:49:06
--- OUTSIDE RECORDS SUMMARY | 2023-11-11 07:23 | XMS_ITS | Clinical Summary ---
Author Organization [facility] Address [place], [place] [address] Care Team Providers Care Automation Qa Analyst Name Role Phone Pcp, No Primary Care [...] - 199 mg/dL 09/14/2012 9:38 AM CDT [facility] TRIGLYCERIDES 109 <150 mg/dL 09/14/2012 9:38 AM CDT [facility] HDL CHOLESTEROL 44 >40 mg/dL 3 9:38 AM T [facility] NON-HDL CHOLESTEROL 100 <145 mg/dl 09/14/2012 9:38 AM T [facility] CHOL/HDL RATIO 3.27 <4.50 09/14/2012 9:38 AM T [facility] LDL CHOLESTEROL 78 <=130 mg/dL 09/14/2012 9:38 AM T [facility] PATIENT STATUS FASTING 09/14/2012 9:38 AM T [facility] Blood specimen (specimen) BLOOD SPECIMEN / Unknown 09/14/2012 7:14 AM CDT 09/14/2012 7:14 AM CDT Silvestre Griggs MD CHEMISTRY [facility] [address] [place] [address] from Last 3 Months or Most Recently Relevant to Health Maintenance Care Teams Automation Qa Analyst Relationship Specialty Start Date End Date Pcp, No . PCP - General 07/10/14
--- OUTSIDE RECORDS SUMMARY | 2023-11-11 07:23 | XMS_ITS | Referral Summary ---
Author Organization [facility] Address [address] [place] [address]. [place] [address] Care Team Providers Care Home Health Nurse Licensed Practical Name Role Phone Anders Mirza MD Primary [...] Braden LOPEZ - AMANDA POCT RH LABORATORY [facility] Acute Care Lab [address] Lab (1st floor, no room number) [place] [address], [place] [phone] from Last 3 Months or Most Recently Relevant to Health Maintenance Care Teams Home Health Nurse Licensed Practical Relationship Specialty Start Date End Date Anders Mirza MD [facility]NOTE 3] [address] [place] [address] PCP - General Emergency Medicine 10/16/22
[2023-11-11] MEDS: CELECOXIB 200 MG CAPSULE PO (07:25)
[2023-11-11] MEDS: OXYCODONE (CR) 10 MG TAB.ER.12H PO (07:25)
[2023-11-11] MEDS: ACETAMINOPHEN 500 MG TABLET 1000 MG PO ×3 (07:25→20:26)
[2023-11-11] MEDS: LACTATED RINGERS 1000 ML 1,000 ML 100 ML IV ×2 (08:30→11:29)
[2023-11-11] MEDS: fentaNYL 100 MCG/2 ML inj IVP (09:11)
[2023-11-11] MEDS: MIDAZOLAM HCL 1 MG/ML inj IVP (09:11)
--- NOTE | 2023-11-11 09:18 | SUR.PREOP ---
TIME?OUT:?0910 PT/RN/MDA?VERIFICATION?OF?SURGICAL?SITE RIGHT SHOULDER,?PROCEDURE NERVE BLOCK,?AND?CONSENT OBTAINED?PRIOR?TO?INVASIVE?PROCEDURE.
[2023-11-11] MEDS: CEFAZOLIN 1 GM inj 3 GM IVP (09:35)
[2023-11-11] MEDS: TRANEXAMIC ACID 100 MG/ML INJ 1000 MG IV (09:40)
--- NOTE | 2023-11-11 09:53 | P.NB_ITS ---
Nerve Block Nerve Block Time Seen by Provider: 09:15 Date Seen: 11/11/23 Type of block requested by surgeon for post-operative analgesia: supraclavicular Side: right Time out performed: Yes Verification of patient name: Yes Verification of date of : Yes Site marking: site marked Name of person performing procedure: Tre Continuous monitoring Was continuous monitoring of O2 sat, B/P, monitoring coordinator, recorded every 15 minutes?: Yes Procedure Checklist: sterile prep, needles and gloves Ultrasound guided. Images saved: Yes Medications given in 5ml increments after negative aspiration: Ropivicaine %: 0.5 mL: 15 Needle gauge: 22 Decadron (mg): 10 Precedex (mcg): 25 Patient tolerated procedure well: Yes Block Charges Block Charge (with Pro Fee): Brachial Plexus Use of Ultrasound Machine for Block: Yes- US Guidance/pain block
--- NOTE | 2023-11-11 09:53 | W.ANESCHARGE ---
Anesthesia Charges Start Date/Time Anesthesia Start Date: 11/11/23 Anesthesia Start Time: 09:23 Stop Date/Time Anesthesia Stop Date: 11/11/23 Anesthesia Stop Time: 12:05 Summary Extremes of Age - Over 70 or under 1: MDA
--- NOTE | 2023-11-11 10:24 | SUR.OPER ---
PATIENT QUESTIONS ANSWERED SATISFACTORILY PREOPERATIVELY. PATIENT BROUGHT TO OR #3 PER CART FOLLOWING THE BLOCK. Patient positioned supine on OR #3 bed for the intubation.? PATIENT THEN MOVED INTO THE BEACH CHAIR POSITION FOR THE PROCEDURE. Perioperative team wrapped the?left arm in a neutral position on the pt. abdomen with the drawsheet. Right arm elevated on an IV pole in a padded strap for the prep. Final approval of positioning by surgeon.
--- NOTE | 2023-11-11 11:25 | P.ORPRC_ITS ---
Procedure Note Date of procedure: 11/11/23 Procedure: PREOPERATIVE DIAGNOSIS: Right shoulder rotator cuff tear arthropathy POSTOPERATIVE DIAGNOSIS: Right shoulder rotator cuff tear arthropathy NAME OF OPERATION: Right upper extremity reverse shoulder arthroplasty, biceps tenodesis SURGEON: Vick Smallwood MD CALL OUT OPERATOR: Sabina Davis PA-C, Satya Spaulding PA-C ANESTHESIA: General endotracheal ESTIMATED BLOOD LOSS: 200 mL COMPLICATIONS: None SPECIMENS: None DRAINS: None PREOPERATIVE ANTIBIOTICS: Ancef 3 grams IMPLANTS: 1. Tornier 29 mm x 35 mm baseplate 2. 39 mm standard glenosphere 3. 7B humeral stem 4. High eccentric +0 humeral tray 5. 39mm +6 polyethylene INDICATIONS: The patient is a 68-year-old with a longstanding history of severe, unrelenting right shoulder pain secondary to rotator cuff tear arthropathy. Despite appropriate nonoperative management, including activity modification, anti-inflammatories, [id number] pain medication, physical therapy, and injections they continue to have pain and disability. Operative intervention was offered. The risks, benefits and expected outcomes were discussed in detail. These included but were not limited to: Infection, bleeding, injury to blood vessel or nerve, venous thromboembolism. All questions were answered to their satisfaction. Use of an training and development assistant was necessary throughout the case for patient positioning and safety, soft tissue retraction, and closure. A modifier 22 should be added to this case. The patient's weight of 140 kg with a BMI of 47 made exposure difficult and added time to the case. PROCEDURE: General anesthesia was administered. The patient was placed in the lazy beach chair position on the operating room table. The right upper extremity was prepped and draped in the usual sterile fashion. A standard deltopectoral incision was made. Subcutaneous dissection was taken with electrocautery to the deltopectoral interval. The cephalic vein was mobilized, lateral branches were cauterized. The vein was taken medially with the pectoralis. We bluntly entered the deltopectoral interval. We freed up the deltoid. The upper 1/3 of the insertion of the pectoralis was divided with cautery. The static retractor was placed. The clavipectoral fascia and CA ligament were divided. The circumflex vessels were controlled with electrocautery. The biceps was dissected out of the bicipital groove, was tagged with a #2 FiberWire suture and divided proximally. Two fiberWire sutures were placed in the subscapularis. The subscap was subperiosteally elevated off of the lesser tuberosity. The humeral head was delivered into the wound. The intramedullary humeral cutting guide was placed. We made the cut at the anatomic neck, in 30? of retroversion. Humeral sounds were used to assess the diameter of the canal. The broach was placed and had good rotational stability. The calcar reamer was used and the protective base plate cover was placed. Attention was then turned to the glenoid. Hohmann retractors were placed posteriorly. The labrum and biceps stump were sharply debrided. The origin of the inferior glenohumeral ligaments were subperiosteally released off of the glenoid. The drill guide was placed. The guide pin was placed in 0? of cephalic tilt. The reamer was used to bleeding bone. The central drill was used x2. The tap was used. The standard base plate was placed. This had excellent purchase. Locking screws were placed. The glenosphere was placed, the set screw was tightened. Attention then returned to the humerus. We placed a high eccentric standard base plate and standard poly. We reduced the shoulder and took it through a range of motion. It was found to be stable with appropriate soft tissue tension. Trial humeral components were removed. The biceps was tenodesed in the bicipital groove with drill holes and our previously placed FiberWire suture. We placed #2 FiberWire sutures in the lesser tuberosity for subsequent subscap repair. We assembled the humeral component on the back table. We placed it in the center of our subscapularis repair sutures and tapped it down to our humeral cut. This had excellent purchase. The shoulder was reduced and again was found to be stable with appropriate soft tissue tension. We did a 3 min dilute Betadine solution soak. We irrigated the wound with 3 L of normal saline via pulse lavage. We repaired the subscapularis to the lesser tuberosity with our previously placed FiberWire sutures. The deltopectoral interval was loosely reapproximated with an 0 Vicryl in an interrupted [id number] fashion. Subcutaneous tissues were closed with the 2-0 Vicryl and a running 3-0 Monocryl suture. The skin was sealed with glue. A dry dressing and sling were applied. Sponge and needle counts were correct x2. The patient tolerated the procedure well, there were no apparent complications. They were awakened and extubated in the operating room, taken to the postanesthesia care unit in satisfactory condition. PLAN: The patient will be mobilized with physical therapy. The sling will be used for 6 weeks postoperatively. Active range of motion in forward flexion and abduction as tolerates. No external rotation greater than 0? for 6 weeks postoperatively. They will be discharged to home once medically appropriate.
--- NOTE | 2023-11-11 12:08 | W.ANESCHARGE ---
Anesthesia Charges Start Date/Time Anesthesia Start Date: 11/11/23 Anesthesia Start Time: 09:23 Stop Date/Time Anesthesia Stop Date: 11/11/23 Anesthesia Stop Time: 12:05
--- NOTE | 2023-11-11 12:48 | SUR.PHASEI ---
patient met discharge criteria per anesthesia
[2023-11-11] MEDS: ASPIRIN 81 MG TAB.CHEW 162 MG PO (15:47)
[2023-11-11] MEDS: GI COCKTAIL (VISC LIDO/ANTACID) 30 ML PO (15:49)
[2023-11-11 16:08] LABS: Troponin I* < 0.01 ng/mL (0.01-0.04)
[2023-11-11] MEDS: CEFAZOLIN 3 GM in 0.9 % SODIUM CHLORIDE Mini-bag 100 ML IVPB (17:21)
[2023-11-11] MEDS: METFORMIN 500 MG TABLET PO (18:02)
--- NOTE | 2023-11-11 19:21 | P.IMCN_ITS ---
Date of Consult Patient: [facility] Patient Consult date: 11/11/23 Requesting Physician: Orthopedics Primary Care Provider: Anders Mirza MD Consult Narrative Narrative: Darius Gonzalez is a 68 year old male admitted to the hospital for right shoulder arthroplasty. Procedure performed by Dr. Smallwood. He had no operative complications. He requested consultation for management of postoperative medical problems. Patient awoke from surgery generally feeling well. Around 2:40 p.m. the nurse reported that he had developed left-sided chest pain. He had no associated symptoms, nausea, diaphoresis. The pain did not radiate. He had no dyspnea. No previous history of heart disease. The pain was mild and constant. He had pinpoint location in the middle of his left pectoralis muscle. He reported that he could touch the pain with his finger. Nothing he did made it better or worse. He has no previous history of heart disease or chest pain. He does have a history of gastroesophageal reflux. Postoperatively he is had hypoxia without dyspnea. He reports this has happened with previous surgery on his left shoulder. It resolved without specific therapy. Patient reports he has otherwise been doing well. No previous problems with chest pain or exertional chest pain or dyspnea. His right shoulder is not bothering him and he appears to have an effective nerve block for his shoulder surgery. There were no problems prior to surgery. He had a preop physical which did not identify any significant concerns. In the past patient has been told he may have sleep apnea and has been suggested to undergo sleep study. He has declined this as he indicates that he would not be interested in wearing a CPAP. He does note that he has daytime sleepiness and non restorative sleep. Review of Systems Narrative: Patient reports been doing well recently other than as noted above. [facility] Medical History (Updated 11/11/23 @ 19:38 by Hair Nogueira MD) Obstructive sleep apnea ?G47.33 - Obstructive sleep apnea (adult) (pediatric) (ICD-10) Obesity ?E66.9 - Obesity, unspecified (ICD-10) Postoperative hypotension ?I95.81 - Postprocedural hypotension (ICD-10) Low back pain ?M54.50 - Low back pain, unspecified (ICD-10) Skin lesions ?L98.9 - Disorder of the skin and subcutaneous tissue, unspecified (ICD-10) Pre-op exam ?Z01.818 - Encounter for other preprocedural examination (ICD-10) Renal calculi (03/05/22) ?N20.0 - Calculus of kidney (ICD-10) Type 2 diabetes mellitus ?E11.9 - Type 2 diabetes mellitus without complications (ICD-10) Hypertension ?I10 - Essential (primary) hypertension (ICD-10) Encounter for screening for severe acute respiratory syndrome coronavirus 2 (SARS-CoV-2) infection ?Z11.52 - Encounter for screening for COVID-19 (ICD-10) GERD (gastroesophageal reflux disease) ?K21.9 - Gastro-esophageal reflux disease without esophagitis (ICD-10) Surgical History (Updated 11/11/23 @ 19:35 by Hair Nogueira MD) Status post total replacement of right shoulder ?Z96.611 - Presence of right artificial shoulder joint (ICD-10) History of left shoulder replacement (07/22/23) ?Z96.612 - Presence of left artificial shoulder joint (ICD-10) History of repair of laceration (06/11/05) ?Z98.890 - Other specified postprocedural states (ICD-10) Status post left knee replacement (07/14/22) ?Z96.652 - Presence of left artificial knee joint (ICD-10) Status post right knee replacement (07/15/21) ?Z96.651 - Presence of right artificial knee joint (ICD-10) Family History Father CHF (congestive heart failure) High blood pressure Mother High blood pressure Social History (Updated 11/11/23 @ 19:29 by Hair Nogueira MD) Narrative: He lives with his near [place]. He does not smoke. He rarely drinks alcohol. What is your current living situation?: I presently have a place to live Problems where you live: no known problems In the past 12 months, utilities in danger of being shut off: no In past 12 months, lack of transportation kept you from medical appts, meetings, work, or getting things needed for daily living: no In the past 12 mos, have been you worried that your food would run out before you had money to buy more?: never true In the past 12 mos, the food you bought just didn't last and you didn't have money to buy more?: never true Highest level of school completed/degree received: some college, no degree Smoking Status: Never smoker Do you use any of these nicotine containing products: None Second hand tobacco smoke exposure: No How often do you have a drink containing alcohol: never How many standard drinks containing alcohol do you have on a typical day: 1 or 2 How often do you have six or more drinks on one occasion: Never AUDIT-C Alcohol total score: 0 Non-prescribed substance use: denies use Caffeine: Yes (Three times per weeek) How often does anyone, including family, friends and others, physically hurt you : never How often does anyone, including family, friends and others, insult or talk down to you: never How often does anyone, including family, friends and others, threaten you with harm: never How often does anyone, including family, friends and others, scream or curse at you: never Little interest or pleasure in doing things: not at all Feeling down, depressed, or hopeless: not at all service: No Meds Home Medications and Allergies Home Medications ?Medication ?Instructions ?Recorded ?Confirmed ?Type aspirin 81 mg tablet,delayed 81 mg PO DAILY 09/14/22 11/11/23 History release Home Medication Comments: See admission orders and discharge orders for home meds Allergies Allergy/AdvReac Type Severity Reaction Status Date / Time No Known Allergies Allergy Verified 11/11/23 07:58 Exam Narrative: Exam Narrative: He is alert and appears in no distress. Eyes normal. Oropharynx with very small airway. Neck is supple without mass or adenopathy. Respirations are clear to auscultation. He has somewhat diminished breath sounds bilaterally but they appear symmetric. Cardiovascular: S1, S2, regular rate and rhythm. Abdomen: Bowel sounds active. Abdomen is soft without tenderness or mass. Palpation over his anterior chest does not have significant tenderness and there is no area of bruising but he does have point tenderness in the middle of his left pectoralis muscle for the pain he is reporting. Right upper extremity with good pulses and diminished sensation with paresthesias and fingers are warm to touch with good capillary refill. No significant edema in his lower extremities with good peripheral pulses. Const: Vital Signs, click to edit/add: Vital Signs - 24 hr 11/11/23 08:05 11/11/23 09:12 11/11/23 09:15 Temperature 98.8 F Pulse Rate 57 L 53 L 54 L Respiratory Rate 16 16 16 Blood Pressure 140/76 H 128/72 127/72 Pulse Oximetry 94 95 96 Oxygen Delivery Me thod Room Air Nasal Cannula Nasal Cannula Oxygen Flow Rate 2 2 11/11/23 11:59 11/11/23 12:05 11/11/23 12:10 Temperature 97.2 F L 97.2 F L 97.2 F L Pulse Rate 57 L 61 58 L Respiratory Rate 12 16 20 Blood Pressure 119/57 L 110/59 L 101/53 L Pulse Oximetry 92 91 92 Oxygen Delivery Me thod Nasal Cannula Nasal Cannula Nasal Cannula Oxygen Flow Rate 4 4 4 11/11/23 12:15 11/11/23 12:20 11/11/23 12:25 Temperature 97.2 F L 97.2 F L 97 F L Pulse Rate 62 58 L 58 L Respiratory Rate 17 18 20 Blood Pressure 93/76 104/58 L 99/57 L Pulse Oximetry 92 91 92 Oxygen Delivery Me thod Nasal Cannula Nasal Cannula Room Air Oxygen Flow Rate 4 4 11/11/23 12:46 11/11/23 12:47 11/11/23 12:48 Temperature Pulse Rate 60 57 L Respiratory Rate Blood Pressure 93/50 L 94/49 L Pulse Oximetry 95 88 82 L Oxygen Delivery Me thod Nasal Cannula Oxygen Flow Rate 3 11/11/23 13:00 11/11/23 13:02 11/11/23 13:02 Temperature Pulse Rate 54 L 54 L 54 L Respiratory Rate Blood Pressure 91/47 L 91/47 L Pulse Oximetry 91 90 90 Oxygen Delivery Me thod Oxygen Flow Rate 11/11/23 13:02 11/11/23 13:02 Temperature Pulse Rate 54 L 54 L Respiratory Rate Blood Pressure 91/47 L 91/47 L Pulse Oximetry 90 90 Oxygen Delivery Me thod Oxygen Flow Rate Documenting provider has reviewed patient's vital signs: yes Labs Labs: Cardiac Enzymes 11/11/23 Range/Units 15:18 Troponin I < 0.01 L (0.01-0.04) ng/mL ECG Attestation: I personally reviewed and interpreted this ECG as follows: (Normal sinus rhythm. No acute ST-T changes) Assessment and Plan Assessment and plan (1) Status post total replacement of right shoulder: Problem comment: Dr. Smallwood, 11/11/2023, no complications Status: Acute (2) Chest pain: Problem comment: Presentation is suggestive of musculoskeletal pain with 1 isolated point of pain. Resolved spontaneously without intervention. Evaluate and monitor for cardiac disease and if recurrent symptoms chest CT for PE. Status: Acute (3) Obstructive sleep apnea: Problem comment: Recommend outpatient sleep evaluation Status: Suspected (4) Postoperative hypoxia: Problem comment: Likely combination of sedation from anesthesia, pain medications and underlying sleep apnea. Further evaluation if still requiring oxygen tomorrow. Status: Acute Plan Patient is admitted to the hospital for right shoulder arthroplasty. Routine management of pain and postoperative cares. Ongoing assessment of postop hypoxia and postop chest pain. Total Time Spent Total Time Spent: Total time spent today is 50 minutes, 30 minutes in coordination of care and discussing with patient other providers ongoing management of hypoxia and chest pain
--- NOTE | 2023-11-11 20:21 | PC.NURSE ---
End of shift 1320-0427 - Pt arrived from PACU at approximately 1240. Pt alert, oriented, cooperative. Denies pain, reports tingling in R arm and hand. Pt tolerating O2 via nasal cannula at 3L, tolerating regular diet and fluids. Up to void during shift, ambulation with standby assistance. RN provided education to pt regarding importance of keeping surgical arm in sling and in proper position. Surgical site CDI, ice on site. Pt reported instance of L sided chest pain, MD notified, EKG run. Telemetry started and medication given per orders. Pt reported pain resolved, no further incident reported. RN used vitals from monitor feature of [email or web address], upon review some entries of vitals were missing. Customer Experience Manager updated.
[2023-11-11] MEDS: INSULIN ASPART 100 UNIT/ML SUBCUT (20:25)
[2023-11-11] MEDS: ATORVASTATIN 10 MG TABLET PO (20:26)
[2023-11-11] MEDS: SENNOSIDES 1 TAB TABLET 2 TAB PO (20:26)
[2023-11-12] MEDS: CEFAZOLIN 3 GM in 0.9 % SODIUM CHLORIDE Mini-bag 100 ML IVPB (01:26)
[2023-11-12] MEDS: BENZOCAINE/MENTHOL 1 EACH LOZENGE MUCOUS MEM (01:33)
[2023-11-12 03:00] VITALS: BP 107/53; PULSE 66; RESP 20; TEMP 36.6; O2SAT 93
--- NOTE | 2023-11-12 05:15 | PC.NURSE ---
[id number] at beginning of shift pt arm sling not buckled and arm/shoulder not being supported by sling, per pt, this was approved by surgeon, educated pt on importance of immobilizing/stabilizing shoulder. pt acknowledged teaching and informed nurse that Dr Smallwood was ok with pt not having arm in the sling and proceeded to inform nurse on approved movements surgeon said pt could do. nurse again educated pt on importance of not moving arm this soon after surgery and keeping shoulder still and in sling, pt acknowledged teaching and kept arm out of sling until approx 2200 when pt finally allowed nurse to buckle sling and support arm/shoulder. Ice to operative site throughout shift, dressing C/D/I, denies pain to shoulder/arm. SBA to br, tolerating activity well, voiding without difficulty. tolerating PO intake, denies N/V.
[2023-11-12] MEDS: OMEPRAZOLE 20 MG CAPSULE DR PO (06:18)
[2023-11-12 06:45] LABS: Hematocrit 36.2 % (37.0-53.0); Mean Corpuscular HGB Conc 33 gm/dL (32-36); Mean Corpuscular Hemoglobin 28 pg (26-34); Mean Corpuscular Volume 86 fL (80-100); Platelet Count* 233 K/uL (140-440); Red Blood Count 4.23 m/uL (4.30-5.90); White Blood Count* 14.04 K/uL (4.50-11.00)
[2023-11-12 07:10] LABS: Slide Review Reflex No
[2023-11-12 07:12] LABS: Potassium* 4.4 mmol/L (3.6-5.1); Sodium* 131 mmol/L (135-149)
[2023-11-12 07:15] LABS: Creatinine* 0.8 mg/dL (0.5-1.5); Est. Creatinine Clearance* 64.26; Estimated Glomerular Filt Rate 95 ml/min
[2023-11-12 07:16] LABS: Blood Urea Nitrogen* 22 mg/dL (7-30)
[2023-11-12 07:57] VITALS: BP 123/55; PULSE 91; RESP 18; TEMP 36.2; O2SAT 92
[2023-11-12] MEDS: METFORMIN 1,000 MG TABLET 1000 MG PO (07:59)
[2023-11-12] MEDS: SENNOSIDES 1 TAB TABLET 2 TAB PO (07:59)
[2023-11-12] MEDS: ACETAMINOPHEN 500 MG TABLET 1000 MG PO (07:59)
[2023-11-12] MEDS: AMLODIPINE 10 MG TABLET PO (07:59)
[2023-11-12 08:00] VITALS: PULSE 67; O2SAT 92
[2023-11-12] MEDS: lisinopriL 20 MG TABLET 40 MG PO (08:00)
[2023-11-12] MEDS: atenoloL 50 MG TABLET 100 MG PO (08:00)
[2023-11-12] MEDS: ASPIRIN 81 MG TABLET EC PO (08:00)
[2023-11-12] MEDS: INSULIN ASPART 100 UNIT/ML SUBCUT (08:03)
[2023-11-12 08:23] LABS: Troponin I* < 0.01 ng/mL (0.01-0.04)
--- NOTE | 2023-11-12 08:26 | PM.ORPN ---
Subjective Subjective Time Seen by Provider: 07:15 Date Seen: 11/12/23 Principal diagnosis: Post left reverse total shoulder arthroplasty Interval history: Darius is comfortable. He is able to flex and extend his wrist this morning. He feels tingling in the fingers. He states he is unable to take a deep breath. He is on oxygen. He recalls the same thing happening post left shoulder replacement from the block which improved in time. Ortho Exam Narrative Exam Narrative: Alert and oriented x3. Patient is in no acute distress. Converses without labored breathing. Hearing is grossly intact. Ambulates with a normal gait. Examination of the right shoulder shows the dressing is intact. Minimal edema. No erythema or warmth or sign of infection. Upper and lower arm and hand are soft and nontender. Tingling sensation in his fingers to touch. Able to extend and flex his wrist. Able to extend his elbow, not able to flex his elbow. He is on oxygen nasal cannula for his diaphragm has been affected by the block. He has comfortable at rest. States he is unable to take a deep breath. Const Vital Signs, click to edit/add: Vital Signs - 24 hr 11/11/23 09:12 11/11/23 09:15 11/11/23 11:59 Temperature 97.2 F L Pulse Rate 53 L 54 L 57 L Pulse Rate [Right Pulse Oximeter] Respiratory Rate 16 16 12 Blood Pressure 128/72 127/72 119/57 L Blood Pressure [Left Arm] Pulse Oximetry 95 96 92 Oxygen Delivery Method Nasal Cannula Nasal Cannula Nasal Cannula Oxygen Flow Rate 2 2 4 11/11/23 12:05 11/11/23 12:10 11/11/23 12:15 Temperature 97.2 F L 97.2 F L 97.2 F L Pulse Rate 61 58 L 62 Pulse Rate [Right Pulse Oximeter] Respiratory Rate 16 20 17 Blood Pressure 110/59 L 101/53 L 93/76 Blood Pressure [Left Arm] Pulse Oximetry 91 92 92 Oxygen Delivery Method Nasal Cannula Nasal Cannula Nasal Cannula Oxygen Flow Rate 4 4 4 11/11/23 12:20 11/11/23 12:25 11/11/23 12:46 Temperature 97.2 F L 97 F L Pulse Rate 58 L 58 L 60 Pulse Rate [Right Pulse Oximeter] Respiratory Rate 18 20 Blood Pressure 104/58 L 99/57 L 93/50 L Blood Pressure [Left Arm] Pulse Oximetry 91 92 95 Oxygen Delivery Method Nasal Cannula Room Air Nasal Cannula Oxygen Flow Rate 4 3 11/11/23 12:47 11/11/23 12:48 11/11/23 13:00 Temperature Pulse Rate 57 L 54 L Pulse Rate [Right Pulse Oximeter] Respiratory Rate Blood Pressure 94/49 L Blood Pressure [Left Arm] Pulse Oximetry 88 82 L 91 Oxygen Delivery Method Oxygen Flow Rate 11/11/23 13:02 11/11/23 13:02 11/11/23 13:02 Temperature Pulse Rate 54 L 54 L 54 L Pulse Rate [Right Pulse Oximeter] Respiratory Rate Blood Pressure 91/47 L 91/47 L 91/47 L Blood Pressure [Left Arm] Pulse Oximetry 90 90 90 Oxygen Delivery Method Oxygen Flow Rate 11/11/23 13:02 11/11/23 13:45 11/11/23 14:15 Temperature 97.4 F L Pulse Rate 54 L 57 L Pulse Rate [Right Pulse Oximeter] Respiratory Rate 24 Blood Pressure 91/47 L 101/56 L Blood Pressure [Left Arm] Pulse Oximetry 90 89 Oxygen Delivery Method Nasal Cannula Oxygen Flow Rate 3 11/11/23 14:30 11/11/23 14:45 11/11/23 15:00 Temperature Pulse Rate 57 L 57 L Pulse Rate [Right Pulse Oximeter] Respiratory Rate 24 24 24 Blood Pressure 114/62 119/61 Blood Pressure [Left Arm] Pulse Oximetry 90 91 Oxygen Delivery Method Nasal Cannula Nasal Cannula Oxygen Flow Rate 3 3 11/11/23 15:00 11/11/23 17:45 11/11/23 18:45 Temperature 98.1 F 98.6 F Pulse Rate 68 67 Pulse Rate [Right Pulse Oximeter] Respiratory Rate 24 24 24 Blood Pressure 119/64 131/63 Blood Pressure [Left Arm] Pulse Oximetry 93 91 93 Oxygen Delivery Method Nasal Cannula Nasal Cannula Nasal Cannula Oxygen Flow Rate 3 3 3 11/11/23 22:56 11/11/23 22:56 11/11/23 22:56 Temperature 98.3 F Pulse Rate Pulse Rate [Right Pulse Oximeter] 70 Respiratory Rate 22 22 20 Blood Pressure Blood Pressure [Left Arm] 126/68 Pulse Oximetry 92 92 Oxygen Delivery Method Nasal Cannula Nasal Cannula Oxygen Flow Rate 3 3 11/11/23 23:10 11/12/23 03:00 11/12/23 07:57 Temperature 97.9 F 97.2 F L Pulse Rate 68 Pulse Rate [Right Pulse Oximeter] 66 91 Respiratory Rate 20 18 Blood Pressure Blood Pressure [Left Arm] 107/53 L 123/55 L Pulse Oximetry 93 92 Oxygen Delivery Method Nasal Cannula Room Air Oxygen Flow Rate 3 Assessment and Plan Assessment and plan (1) Postoperative hypoxia: Problem details: Likely combination of sedation from anesthesia, pain medications and underlying sleep apnea, nerve block. Status: Acute (2) Status post total replacement of right shoulder: Problem details: Dr. Smallwood, 11/11/2023, no complications Status: Acute Assessment and Plan: Darius states that after his left shoulder replacement he had the same issue with his diaphragm. He was fine at rest and then when he started ambulating he had difficulty oxygenating. Her from function generally improves prior to discharge but staff will observe. Plan for discharge is to home when they meet discharge criteria. Patient will wear the sling for 6 weeks post surgery. They can take it off for comfort and for exercises. Activity: no external rotation of the operative shoulder past 0? x 6 weeks. Forward flexion and abduction of the shoulder is allowed as tolerated. They will work on range of motion of the elbow, wrist, fingers once the block has wore off on the operative extremity. Patient will begin physical therapy for the operative shoulder next week. For discharge, oxycodone and Tylenol for pain. He has oxycodone, Tylenol, senna at home and does not need a prescription. Do not drive while on narcotic pain medication. Drive only when safe to do so, when they have normal use/function of the upper extremity, this will likely take 6 weeks. Patient will minimize and discontinue the narcotic as soon as possible. Remove dressing in 1 week. Dressing is waterproof. May shower. Surgical glue covers the wound. Do not scrub the wound. Expect swelling and bruising about the shoulder and upper extremity. Use of ice/active ice without restriction. Notify Orthopedics if swelling is excessive. notify Orthopedics with any questions or concerns. [phone] Return to Orthopedic clinic next week for a wound check Return to clinic in [address] Smallwood.
--- NOTE | 2023-11-12 08:32 | P.ORPN_ITS ---
<Statement entered by Clara Arreguin PA-C - 01/26/25 13:45> duplicate. Subjective Subjective Date Seen: 01/11/25 Principal diagnosis: Post left reverse total shoulder arthroplasty Ortho Exam Const Vital Signs, click to edit/add: Vital Signs - 24 hr 11/11/23 09:12 11/11/23 09:15 11/11/23 11:59 Temperature 97.2 F L Pulse Rate 53 L 54 L 57 L Pulse Rate [Right Pulse Oximeter] Respiratory Rate 16 16 12 Blood Pressure 128/72 127/72 119/57 L Blood Pressure [Left Arm] Pulse Oximetry 95 96 92 Oxygen Delivery Method Nasal Cannula Nasal Cannula Nasal Cannula Oxygen Flow Rate 2 2 4 11/11/23 12:05 11/11/23 12:10 11/11/23 12:15 Temperature 97.2 F L 97.2 F L 97.2 F L Pulse Rate 61 58 L 62 Pulse Rate [Right Pulse Oximeter] Respiratory Rate 16 20 17 Blood Pressure 110/59 L 101/53 L 93/76 Blood Pressure [Left Arm] Pulse Oximetry 91 92 92 Oxygen Delivery Method Nasal Cannula Nasal Cannula Nasal Cannula Oxygen Flow Rate 4 4 4 11/11/23 12:20 11/11/23 12:25 11/11/23 12:46 Temperature 97.2 F L 97 F L Pulse Rate 58 L 58 L 60 Pulse Rate [Right Pulse Oximeter] Respiratory Rate 18 20 Blood Pressure 104/58 L 99/57 L 93/50 L Blood Pressure [Left Arm] Pulse Oximetry 91 92 95 Oxygen Delivery Method Nasal Cannula Room Air Nasal Cannula Oxygen Flow Rate 4 3 11/11/23 12:47 11/11/23 12:48 11/11/23 13:00 Temperature Pulse Rate 57 L 54 L Pulse Rate [Right Pulse Oximeter] Respiratory Rate Blood Pressure 94/49 L Blood Pressure [Left Arm] Pulse Oximetry 88 82 L 91 Oxygen Delivery Method Oxygen Flow Rate 11/11/23 13:02 11/11/23 13:02 11/11/23 13:02 Temperature Pulse Rate 54 L 54 L 54 L Pulse Rate [Right Pulse Oximeter] Respiratory Rate Blood Pressure 91/47 L 91/47 L 91/47 L Blood Pressure [Left Arm] Pulse Oximetry 90 90 90 Oxygen Delivery Method Oxygen Flow Rate 11/11/23 13:02 11/11/23 13:45 11/11/23 14:15 Temperature 97.4 F L Pulse Rate 54 L 57 L Pulse Rate [Right Pulse Oximeter] Respiratory Rate 24 Blood Pressure 91/47 L 101/56 L Blood Pressure [Left Arm] Pulse Oximetry 90 89 Oxygen Delivery Method Nasal Cannula Oxygen Flow Rate 3 11/11/23 14:30 11/11/23 14:45 11/11/23 15:00 Temperature Pulse Rate 57 L 57 L Pulse Rate [Right Pulse Oximeter] Respiratory Rate 24 24 24 Blood Pressure 114/62 119/61 Blood Pressure [Left Arm] Pulse Oximetry 90 91 Oxygen Delivery Method Nasal Cannula Nasal Cannula Oxygen Flow Rate 3 3 11/11/23 15:00 11/11/23 17:45 11/11/23 18:45 Temperature 98.1 F 98.6 F Pulse Rate 68 67 Pulse Rate [Right Pulse Oximeter] Respiratory Rate 24 24 24 Blood Pressure 119/64 131/63 Blood Pressure [Left Arm] Pulse Oximetry 93 91 93 Oxygen Delivery Method Nasal Cannula Nasal Cannula Nasal Cannula Oxygen Flow Rate 3 3 3 11/11/23 22:56 11/11/23 22:56 11/11/23 22:56 Temperature 98.3 F Pulse Rate Pulse Rate [Right Pulse Oximeter] 70 Respiratory Rate 22 22 20 Blood Pressure Blood Pressure [Left Arm] 126/68 Pulse Oximetry 92 92 Oxygen Delivery Method Nasal Cannula Nasal Cannula Oxygen Flow Rate 3 3 11/11/23 23:10 11/12/23 03:00 11/12/23 07:57 Temperature 97.9 F 97.2 F L Pulse Rate 68 Pulse Rate [Right Pulse Oximeter] 66 91 Respiratory Rate 20 18 Blood Pressure Blood Pressure [Left Arm] 107/53 L 123/55 L Pulse Oximetry 93 92 Oxygen Delivery Method Nasal Cannula Room Air Oxygen Flow Rate 3
--- NOTE | 2023-11-12 15:22 | PC.NURSE ---
shift note: vss stable pt afeb. sats 92% RA. pt using IS indept to 1500. LS clr. Rt shoulder drsg c/d/i. numbness in rt arm & fingers. pt able to wiggle fingers. DC'd IV intact. reviewed dc instructions and copies sent with pt at dc. Belongings reviewed and returned at nd with 2 ice paks
== END 2023-11-12 12:25 | disposition home or self-care (01) ==
LOC: OR 07:21 → MEDSURG 07:24
PROVIDERS: Family Medicine; PCP Internal Medicine; Visit Provider Orthopaedic Surgery
PROC: 0RRJ0JZ Replacement of Right Shoulder Joint with Synthetic Substitute, Open Approach (ICD-10-PCS; CPT 23472; principal; 2023-11-11 09:30)
DX: M75.101 Unspecified rotator cuff tear or rupture of right shoulder, not specified as traumatic (principal); G89.18 Other acute postprocedural pain; R07.9 Chest pain, unspecified; R09.02 Hypoxemia; G47.33 Obstructive sleep apnea (adult) (pediatric); E66.9 Obesity, unspecified; Z68.42 Body mass index [BMI] 45.0-49.9, adult; I10 Essential (primary) hypertension; E11.9 Type 2 diabetes mellitus without complications; K21.9 Gastro-esophageal reflux disease without esophagitis
CPT/HCPCS: 23472; 23430; 01638; 36415; 64415; 73030; 76942; 82565; 82962; 84132; 84295; 84484; 84520; 85027; 93005; 97110; 97165; 97535; 99100; A9270; C1713; C1776; J0330; J0690; J1100; J2250; J2371; J2405; J2704; J2795; J3010; J3490; J7120; L3670

== ENCOUNTER 2024-01-25 07:30 | Outpatient (RCR) | payer MEDICARE, BC, SELFPAY ==
--- NOTE | 2023-11-25 09:15 | PT.OPEX ---
PT Ryan Outpatient Eval PT [facility] Outpatient Eval Start: 11/25/23 07:26 Freq: Status: Active Protocol: Document 11/25/23 07:26 [facility] (Rec: 11/25/23 09:15 [facility] [id number]) E-signed By Cee Brandt PT Physical Therapy Outpatient Evaluation Insurance Information Recert Due Date 11/25/23 Insurance Name Medicare B Referring MD RON Subjective Subjective PATIENT REPORTS A LONG H/O RIGHT>LEFT SHOULDER PAIN AND PROGRESSIVE DYSFUNCTION. 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 HE IS REPORTS FAIR SLEEPING OPTING FOR THE RECLINER RATHER THE BED AT THIS TIME AND HAS ADAPTED TO USE OF LUE HE RIGHT HANDED. HE FEELS THIS IS FOLLOWING SUIT WITH HIS RECENT LEFT TSA IN JULY. Pain Comments 0-4/10 Date of Surgery (If applicable) 11/11/23 Current Work Status Retired Occupation RETIRED FAM Preferred Name [employer] Precautions Treatment Precautions/Contraindications 11/25/23: AROM AFTER NERVE BLOCK INTO FLEX AND ABD, NO ER PAST NEUTRAL UNTIL 6 WEEKS, SLING FOR 4-6 WEEKS UNLESS BATHING, DRESSING, AND PHYSICAL THERAPY Weight Bearing Status Non-Weight Bearing Assessment Assessment/Impression PATIENT IS A [address] RON TO EVAL AND TX S/P rTSA 11/10. 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 PATIENT ARRIVES WITH HIS SLING PROPERLY DONNED REPORTING PAIN 0-4/10. HE DEMONSTRATES GOOD PROM MEASURING 132/95/0 AND DID NOT MEASURE AROM THIS VISIT. PATIENT EDUCATED ON PRECAUTIONS AND RESTRICTIONS, SYMPTOM MGMT, AND SLEEPING ADAPTATION TO SUPPORT THE SURGICAL ARM. HE IS APPROPRIATE FOR SKILLED PHYSICAL THERAPY TO FOR SHOULDER ROM, SHOULDER STRENGTHENING AND STABILIZATION, WELL SYMPTOM MGMT. Primary Functional Limitations USE OF LUE FOR ADL'S, IADL'S Plan of Care Rehabilitation Potential Good Physical Therapy Goals STG IN 4-6 WEEKS: 1. PATIENT WILL DEMONSTRATE GOOD MGMT OF HIS PAIN AND EDEMA WITH REPORTED PAIN </3/ 10 DURING HIS HOME PROGRAM AND WITH THE PROGRESSION OF HIS PHYSICAL THERAPY. 2. PATIENT WILL RETURN TO INDEPENDENCE WITH ADL'S, RETURN TO DRIVING, AND MAINTAIN HIS PRECAUTIONS/ RESTRICTIONS 3. PATIENT WILL DEMONSTRATE PROM TO WFL TO PREPARE FOR RETURN TO FUNCTIONAL USE OF RIGHT UE; LTG WITHIN 10-12 WEEKS: 1. PATIENT WILL DEMONSTRATE AROM OF RIGHT SHOULDER TO WFL TO RETURN TO FULL FUNCTIONAL FOR ADL'S, IADL'S AND PEER CENTERED ACTIVITIES. 2. PATIENT WILL DEMONSTRATE FUNCTIONAL STRENGTH TO RETURN TO REACHING OVERHEAD, ANTERIORLY AND OUT TO SIDE NEEDED DURING PATIENT CENTERED ACTIVITIES. 3. PATIENT WILL DEMONSTRATE INDEPENDENCE WITH HIS HEP TO PROGRESS TWD THE ABVE MENTIONED GOALS, CONTINUED MGMT OF SYMPTOMS, AND ONGOING IMPROVEMENT WITH ROM, STRENGTH AND FUNCTION FOR A FULL RETURN TO ALL ACTIVITIES Coordination/Communication With Referral Source Treatment Plan/Direct Interventions Electrical Stimulation,Ice/ Cold/Vasopneumatic,Joint Mobilization,Manual Therapy, Neuromuscular Re-ed,Self-Care/ Home Management,Therapeutic Activities,Therapeutic Exercises Frequency/Duration 2X/WK Patient Will Be Discharged From Therapy Completion of LTG(s), Independently Progressing Evaluation Billing Untimed Code Treatment Minutes 15 PT Eval No Charge No Complexity Low Certification Information Initial Certification Date 11/25/23 Ending Certification Date 02/22/24 Provider Signature Required Yes Provider Signature Shows Agreement With POC & Medical Necessity Physician NPI Number Write NPI# Here Physician Comment/Change : Physician Signature & Date Requested Please Sign/Date Here
== END 2024-02-09 15:52 | disposition home or self-care (01) ==
PROVIDERS: PCP Internal Medicine; Visit Provider Orthopaedic Surgery
DX: M19.012 Primary osteoarthritis, left shoulder (principal); Z51.89 Encounter for other specified aftercare
CPT/HCPCS: 97110; 97140; 97161

== ENCOUNTER 2024-11-13 07:50 | Outpatient (CLI) | payer MEDICARE, BC, SELFPAY | END 2024-11-13 07:51 | disposition home or self-care (01) | LOC: NFLDREF 11-16 13:11 | PROVIDERS: PCP Internal Medicine; Referring Provider Internal Medicine; Visit Provider Internal Medicine | DX: I10 Essential (primary) hypertension (principal); E11.9 Type 2 diabetes mellitus without complications; M10.9 Gout, unspecified; Z12.5 Encounter for screening for malignant neoplasm of prostate; Z13.6 Encounter for screening for cardiovascular disorders | CPT/HCPCS: 80053; 80061; 82043; 82570; G0103 ==